=== PATIENT | male | born 1960 | race Caucasian/White ===

== ENCOUNTER 2020-01-13 17:41 | Outpatient (REF) | payer OTHER, SELFPAY | END 2020-01-13 17:42 | disposition home or self-care (01) | LOC: HO.LAB 17:41 | PROVIDERS: Visit Provider Internal Medicine | DX: Z20.828 Contact with and (suspected) exposure to other viral communicable diseases (principal) | CPT/HCPCS: U0003 ==

== ENCOUNTER 2020-04-06 12:04 | Outpatient (REF) | payer OTHER, SELFPAY | END 2020-04-06 12:05 | disposition home or self-care (01) | LOC: HO.LAB 12:04 | PROVIDERS: Visit Provider Internal Medicine | DX: Z20.822 Contact with and (suspected) exposure to COVID-19 (principal) | CPT/HCPCS: 36415; C9803; U0003 ==

== ENCOUNTER 2022-06-23 19:04 | Emergency (ER) | payer MEDICAID, SELFPAY ==
[2022-06-23 19:30] VITALS: BP 175/110; PULSE 81; RESP 20; TEMP 36.6; O2SAT 97; BMI 34.7
[2022-06-23 19:34] VITALS: BP 159/92
--- NOTE | 2022-06-23 19:36 | ECG_ITS ---
Test Reason : HYPERTENTION Blood Pressure : / mmHG Vent. Rate : 073 BPM Atrial Rate : 073 BPM P-R Int : 150 ms QRS Dur : 078 ms QT Int : 374 ms P-R-T Axes : 022 -07 023 degrees QTc Int : 412 ms Normal sinus rhythm Normal ECG No previous ECGs available Referred By: Andrei Harvey Electronically Signed By:TAMIKA CARTER MD
--- NOTE | 2022-06-23 19:36 | ED.GENADULT ---
HPI - General Adult General Chief complaint: General Medical <ALY Ruiz - Last Filed: 06/30/22 09:40> Stated complaint: elevated blood pressure <ALY Ruiz - Last Filed: 06/30/22 09:40> Time Seen by Provider: 06/23/22 20:49 <ALY Ruiz - Last Filed: 06/30/22 09:40> Source: patient and family () <Kendra Strong MD - Last Filed: 06/23/22 22:38> Mode of arrival: ambulatory <Kendra Strong MD - Last Filed: 06/23/22 22:38> History of Present Illness HPI narrative: 61-year-old male who arrives to the ED with concerns for high blood pressure, he endorses that he has underlying Parkinson's and did drink 3 beers last night. Patient states that he has had increased stressors and increased level of emotional feelings due to his tremors associated with Parkinson's around his grandkids. Patient reports headaches but denies any other symptoms such as speech/auditory/dizziness/one-sided weakness. Patient also denies any chest pain. <Kendra Strong MD - Last Filed: 06/23/22 22:38> Related Data Allergies/adverse reactions: Allergies Allergy/AdvReac Type Severity Reaction Status Date / Time shellfish derived Allergy Unknown UNKNOWN Verified 06/23/22 19:33 [SHELLFISH DERIVED] Seafood Allergy Severe VOMITS, Uncoded 12/01/19 17:45 DIFF BREATHING <ALY Ruiz - Last Filed: 06/30/22 09:40> Review of Systems Review of Systems: Pertinent positives and negatives as stated in HPI <Kendra Strong MD - Last Filed: 06/23/22 22:38> PMFSH Past Medical History Source: nursing notes reviewed <Kendra Strong MD - Last Filed: 06/23/22 22:38> Social History Social History: Social History Advance Directives: No Advance Directives Information Provided: No <ALY Ruiz - Last Filed: 06/30/22 09:40> Physical Exam ED Vital Signs: Vital Signs - 24 hr 06/23/22 19:30 06/23/22 19:34 06/23/22 21:02 Temperature 97.8 F Pulse Rate 81 77 Respiratory Rate 20 16 Blood Pressure 175/110 H 159/92 H 169/102 H Pulse Oximetry 97 97 Oxygen Delivery Method Room Air Room Air 06/23/22 22:00 Temperature 98.0 F Pulse Rate 78 Respiratory Rate 16 Blood Pressure 150/100 H Pulse Oximetry 100 Oxygen Delivery Method Room Air BMI result Body Mass Index 34.7 <ALY Ruiz - Last Filed: 06/30/22 09:40> Vital Signs - 24 hr 06/23/22 19:30 06/23/22 19:34 06/23/22 21:02 Temperature 97.8 F Pulse Rate 81 77 Respiratory Rate 20 16 Blood Pressure 175/110 H 159/92 H 169/102 H Pulse Oximetry 97 97 Oxygen Delivery Method Room Air Room Air 06/23/22 22:00 Temperature 98.0 F Pulse Rate 78 Respiratory Rate 16 Blood Pressure 150/100 H Pulse Oximetry 100 Oxygen Delivery Method Room Air BMI result Body Mass Index 34.7 VITAL SIGNS: Reviewed. GENERAL: Well developed, well nourished, in no acute distress. HEAD: Normocephalic/atraumatic EYES: PERRLA, EOMI EARS: Ext canals without abnormality NOSE: Nares patent bilateral OROPHARYNX: no oral lesions noted, posterior pharynx clear NECK: Supple, no adenopathy LUNGS: Normal breath sounds. No adventitious sounds or accessory muscle use. SpO2<97> CARDIOVASCULAR: Regular rate and rhythm without noted murmurs, no JVD or lower extremity edema. ABDOMEN: Soft, non-tender, non-distended with bowel sounds. MUSCULOSKELETAL: No tenderness, deformities, or effusions noted on gross inspection. EXTREMITIES: No cyanosis, clubbing or edema. SKIN: Inspection of the skin reveals no rashes NEUROLOGIC: Alert and oriented x 4. Strength and sensation to light touch were grossly intact x 4, tremors at baseline primarily on the right. <Kendra Strong MD - Last Filed: 06/23/22 22:38> Course Course Course Narrative: RME: 61 yold male presents to the ED for headache and HTN. blood pressure elvated at home. negative for any neuro deficits. labs/EKG ordered <ALY Ruiz - Last Filed: 06/30/22 09:40> Medical Decision Making Medical Decision Making MDM Narrative: 61-year-old male with history and clinical presentation after review of all investigations I suspect that patient's blood pressure may be mildly elevated secondary to alcohol consumption last night, he has no focal deficits, at this time he does not have any headache and he denies any chest pain. Was explained that we would not be starting blood pressure medications today, but I would be sending my note over to his primary care doctor and he should call 1st thing in the morning as well as starting a blood pressure log. He understands and is discharged home in stable condition. <Kendra Strong MD - Last Filed: 06/23/22 22:38> Differential Diagnosis Please see the discussion above <Kendra Strong MD - Last Filed: 06/23/22 22:38> Lab Data Please see the discussion above <Kendra Strong MD - Last Filed: 06/23/22 22:38> Result Diagrams: 06/23/22 20:05 06/23/22 20:05 <ALY Ruiz - Last Filed: 06/30/22 09:40> Labs: Lab Results 06/23/22 06/23/22 06/23/22 Range/Units 20:05 20:05 20:05 WBC 7.2 (4.8-10.8) X10*3/uL RBC 5.10 (4.60-5.80) X10*6/uL Hgb 14.0 (14.0-18.0) g/dl Hct 42.0 (42.0-52.0) % MCV 82.4 (80.0-98.0) fL MCH 27.5 (27.0-33.0) pg MCHC 33.3 (31.0-36.0) g/dl RDW 13.7 (11.0-16.0) % Plt Count 263 (160-400) X10*3/uL MPV 10.6 (9.4-12.4) fL Immature Gran % (Auto) 0.1 (0.0-0.4) % Neut % (Auto) 54.1 (45-73) % Lymph % (Auto) 24.8 (20-40) % Freestone % (Auto) 9.6 (2-11) % Eos % (Auto) 10.4 H (0-4) % Baso % (Auto) 1.0 (0-2) % Lymph # (Auto) 1.8 (1.2-4.9) X10*3/uL Freestone # (Auto) 0.7 (0.1-1.2) X10*3/uL Eos # (Auto) 0.8 H (0.0-0.4) X10*3/uL Baso # (Auto) 0.1 (0.0-0.2) X10*3/uL Abs Immat Gran (auto) 0.01 (0.00-0.03) X10*3/uL Absolute Neuts (auto) 3.9 (2.0-8.3) x10*3/uL Absolute Nucleated RBC 0.000 (0.0-0.012) X10*3/uL Nucleated RBC % (auto) 0.0 (0.0-0.2) /100WBC PT 10.7 (10.0-13.1) SEC INR 0.9 (0.9-1.1) APTT 28.6 (26.0-36.4) SEC Sodium 140 (135-145) mmol/L Potassium 4.1 (3.3-5.1) mmol/L Chloride 107 (96-108) mmol/L Carbon Dioxide 24 (22-29) mmol/L Anion Gap 13 (12-20) BUN 16 (9-16) mg/dL Creatinine 1.29 (0.5-1.4) mg/dL Estim Creat Clear Calc 66.5 Estimated GFR 57 Random Glucose 105 (60-115) mg/dL Calcium 8.9 (8.4-10.2) mg/dL Total Bilirubin 0.3 (0.0-1.0) mg/dL AST 22 (5-37) U/L ALT 13 (0-40) U/L Alkaline Phosphatase 60 (39-117) U/L Troponin I High Sens (<3.5-35.0) ng/L Total Protein 7.0 (6.5-8.0) g/dL Albumin 4.2 (3.5-5.0) g/dL 06/23/22 Range/Units 20:05 WBC (4.8-10.8) X10*3/uL RBC (4.60-5.80) X10*6/uL Hgb (14.0-18.0) g/dl Hct (42.0-52.0) % MCV (80.0-98.0) fL MCH (27.0-33.0) pg MCHC (31.0-36.0) g/dl RDW (11.0-16.0) % Plt Count (160-400) X10*3/uL MPV (9.4-12.4) fL Immature Gran % (Auto) (0.0-0.4) % Neut % (Auto) (45-73) % Lymph % (Auto) (20-40) % Freestone % (Auto) (2-11) % Eos % (Auto) (0-4) % Baso % (Auto) (0-2) % Lymph # (Auto) (1.2-4.9) X10*3/uL Freestone # (Auto) (0.1-1.2) X10*3/uL Eos # (Auto) (0.0-0.4) X10*3/uL Baso # (Auto) (0.0-0.2) X10*3/uL Abs Immat Gran (auto) (0.00-0.03) X10*3/uL Absolute Neuts (auto) (2.0-8.3) x10*3/uL Absolute Nucleated RBC (0.0-0.012) X10*3/uL Nucleated RBC % (auto) (0.0-0.2) /100WBC PT (10.0-13.1) SEC INR (0.9-1.1) APTT (26.0-36.4) SEC Sodium (135-145) mmol/L Potassium (3.3-5.1) mmol/L Chloride (96-108) mmol/L Carbon Dioxide (22-29) mmol/L Anion Gap (12-20) BUN (9-16) mg/dL Creatinine (0.5-1.4) mg/dL Estim Creat Clear Calc Estimated GFR Random Glucose (60-115) mg/dL Calcium (8.4-10.2) mg/dL Total Bilirubin (0.0-1.0) mg/dL AST (5-37) U/L ALT (0-40) U/L Alkaline Phosphatase (39-117) U/L Troponin I High Sens < 2.7 (<3.5-35.0) ng/L Total Protein (6.5-8.0) g/dL Albumin (3.5-5.0) g/dL <ALY Ruiz - Last Filed: 06/30/22 09:40> Lab Results 06/23/22 06/23/22 06/23/22 Range/Units 20:05 20:05 20:05 WBC 7.2 (4.8-10.8) X10*3/uL RBC 5.10 (4.60-5.80) X10*6/uL Hgb 14.0 (14.0-18.0) g/dl Hct 42.0 (42.0-52.0) % MCV 82.4 (80.0-98.0) fL MCH 27.5 (27.0-33.0) pg MCHC 33.3 (31.0-36.0) g/dl RDW 13.7 (11.0-16.0) % Plt Count 263 (160-400) X10*3/uL MPV 10.6 (9.4-12.4) fL Immature Gran % (Auto) 0.1 (0.0-0.4) % Neut % (Auto) 54.1 (45-73) % Lymph % (Auto) 24.8 (20-40) % Freestone % (Auto) 9.6 (2-11) % Eos % (Auto) 10.4 H (0-4) % Baso % (Auto) 1.0 (0-2) % Lymph # (Auto) 1.8 (1.2-4.9) X10*3/uL Freestone # (Auto) 0.7 (0.1-1.2) X10*3/uL Eos # (Auto) 0.8 H (0.0-0.4) X10*3/uL Baso # (Auto) 0.1 (0.0-0.2) X10*3/uL Abs Immat Gran (auto) 0.01 (0.00-0.03) X10*3/uL Absolute Neuts (auto) 3.9 (2.0-8.3) x10*3/uL Absolute Nucleated RBC 0.000 (0.0-0.012) X10*3/uL Nucleated RBC % (auto) 0.0 (0.0-0.2) /100WBC PT 10.7 (10.0-13.1) SEC INR 0.9 (0.9-1.1) APTT 28.6 (26.0-36.4) SEC Sodium 140 (135-145) mmol/L Potassium 4.1 (3.3-5.1) mmol/L Chloride 107 (96-108) mmol/L Carbon Dioxide 24 (22-29) mmol/L Anion Gap 13 (12-20) BUN 16 (9-16) mg/dL Creatinine 1.29 (0.5-1.4) mg/dL Estim Creat Clear Calc 66.5 Estimated GFR 57 Random Glucose 105 (60-115) mg/dL Calcium 8.9 (8.4-10.2) mg/dL Total Bilirubin 0.3 (0.0-1.0) mg/dL AST 22 (5-37) U/L ALT 13 (0-40) U/L Alkaline Phosphatase 60 (39-117) U/L Troponin I High Sens (<3.5-35.0) ng/L Total Protein 7.0 (6.5-8.0) g/dL Albumin 4.2 (3.5-5.0) g/dL 06/23/22 Range/Units 20:05 WBC (4.8-10.8) X10*3/uL RBC (4.60-5.80) X10*6/uL Hgb (14.0-18.0) g/dl Hct (42.0-52.0) % MCV (80.0-98.0) fL MCH (27.0-33.0) pg MCHC (31.0-36.0) g/dl RDW (11.0-16.0) % Plt Count (160-400) X10*3/uL MPV (9.4-12.4) fL Immature Gran % (Auto) (0.0-0.4) % Neut % (Auto) (45-73) % Lymph % (Auto) (20-40) % Freestone % (Auto) (2-11) % Eos % (Auto) (0-4) % Baso % (Auto) (0-2) % Lymph # (Auto) (1.2-4.9) X10*3/uL Freestone # (Auto) (0.1-1.2) X10*3/uL Eos # (Auto) (0.0-0.4) X10*3/uL Baso # (Auto) (0.0-0.2) X10*3/uL Abs Immat Gran (auto) (0.00-0.03) X10*3/uL Absolute Neuts (auto) (2.0-8.3) x10*3/uL Absolute Nucleated RBC (0.0-0.012) X10*3/uL Nucleated RBC % (auto) (0.0-0.2) /100WBC PT (10.0-13.1) SEC INR (0.9-1.1) APTT (26.0-36.4) SEC Sodium (135-145) mmol/L Potassium (3.3-5.1) mmol/L Chloride (96-108) mmol/L Carbon Dioxide (22-29) mmol/L Anion Gap (12-20) BUN (9-16) mg/dL Creatinine (0.5-1.4) mg/dL Estim Creat Clear Calc Estimated GFR Random Glucose (60-115) mg/dL Calcium (8.4-10.2) mg/dL Total Bilirubin (0.0-1.0) mg/dL AST (5-37) U/L ALT (0-40) U/L Alkaline Phosphatase (39-117) U/L Troponin I High Sens < 2.7 (<3.5-35.0) ng/L Total Protein (6.5-8.0) g/dL Albumin (3.5-5.0) g/dL <Kendra Strong MD - Last Filed: 06/23/22 22:38> Independent Interpretation I performed an independent interpretation of an: EKG <Kendra Strong MD - Last Filed: 06/23/22 22:38> Interpretation: Normal sinus rhythm, HR-73, no STEMI, CA/QRS/QTC is within normal limits. <Kendra Strong MD - Last Filed: 06/23/22 22:38> Chronic Conditions Parkinson's <Kendra Strong MD - Last Filed: 06/23/22 22:38> Discharge Plan Discharge Clinical Impression: Elevated blood pressure reading, Parkinson's disease <ALY Ruiz - Last Filed: 06/30/22 09:40> Patient Disposition: Home, Self-Care <ALY Ruiz - Last Filed: 06/30/22 09:40> Instructions: Parkinson Disease (ED), DASH Eating Plan (ED) <ALY Ruiz - Last Filed: 06/30/22 09:40> Additional Instructions: 1. Reanudar todos los medicamentos caseros seg?n lo prescrito. 2. Siga las recomendaciones anteriores para cambios en la dieta para ayudar a mejorar shrestha presi?n arterial y evitar las bebidas alcoh?licas. 3. Comun?quese con shrestha proveedor de atenci?n primaria llamando a la oficina por la ma?nikki y programando sam cade para sam reevaluaci?n. 4. Le recomiendo que lleve un registro de shrestha presi?n arterial. Compru?belo sam vez por la ma?nikki y luego otra vez por la noche antes de acostarse. Regrese a la christy de emergencias si los s?ntomas empeoran. 1. Resume all home medications as prescribed. 2. Please follow the above recommendations for dietary changes to help improve your blood pressure as well as avoiding alcoholic beverages. 3. Please reach out to your primary care provider by calling the office in the morning and setting up an appointment for re-evaluation. 4. I recommend that you keep a log of your blood pressure is. Check once in the morning and then again in the evening before bed. Return to the ER for any worsening symptoms. <ALY Ruiz - Last Filed: 06/30/22 09:40> Referrals: Avni Elias MD [Primary Care Provider] - (Patient presented with several elevated blood pressure readings, did not start him on blood pressure medication, no focal deficits, no chest pain. Workup was otherwise negative.) <ALY Ruiz - Last Filed: 06/30/22 09:40> Interventions: ED Discharge Assessment Last Done: 06/23/22 23:06 <ALY Ruiz - Last Filed: 06/30/22 09:40> Discharge Date/Time: 06/23/22 23:07 <ALY Ruiz - Last Filed: 06/30/22 09:40> Print Language: Icelandic <ALY Ruiz - Last Filed: 06/30/22 09:40>
[2022-06-23 20:10] LABS: MANUAL DIFF FLAG NO
[2022-06-23 20:11] LABS: Basophils Absolute Auto 0.1 X10*3/uL (0.0-0.2); Eosinophils Absolute Auto 0.8 X10*3/uL (0.0-0.4); Eosinophils Percent Auto 10.4 % (0-4); Imm Gran Abs Auto 0.01 X10*3/uL (0.00-0.03); Imm Gran Pct Auto 0.1 % (0.0-0.4); Lymphocytes Absolute Auto 1.8 X10*3/uL (1.2-4.9); Lymphocytes Percent Auto 24.8 % (20-40); Mean Corpuscular HGB Conc 33.3 g/dl (31.0-36.0); Mean Corpuscular Hemoglobin 27.5 pg (27.0-33.0); Mean Corpuscular Volume 82.4 fL (80.0-98.0); Mean Platelet Volume 10.6 fL (9.4-12.4); Monocytes Absolute Auto 0.7 X10*3/uL (0.1-1.2); Monocytes Percent Auto 9.6 % (2-11); Neutrophils Absolute Auto 3.9 x10*3/uL (2.0-8.3); Neutrophils Percent Auto 54.1 % (45-73); Platelet Count 263 X10*3/uL (160-400); Red Cell Distribution Width 13.7 % (11.0-16.0); White Blood Count 7.2 X10*3/uL (4.8-10.8)
[2022-06-23 20:15] LABS: INTERNATIONAL NORM RATIO 0.9 (0.9-1.1); Prothrombin Time 10.7 SEC (10.0-13.1)
[2022-06-23 20:18] LABS: Partial Thromboplastin Time 28.6 SEC (26.0-36.4)
[2022-06-23 20:25] LABS: Alanine Aminotransferase 13 U/L (0-40); Albumin Level 4.2 g/dL (3.5-5.0); Alkaline Phosphatase 60 U/L (39-117); Anion Gap 13 (12-20); Aspartate Amino Transferase 22 U/L (5-37); Bilirubin Total 0.3 mg/dL (0.0-1.0); Blood Urea Nitrogen 16 mg/dL (9-16); Calcium 8.9 mg/dL (8.4-10.2); Carbon Dioxide 24 mmol/L (22-29); Chloride 107 mmol/L (96-108); Creatinine Clr Calc Pharmacy 66.5; Estimated Glomerular Filt Rate 57; Glucose Random 105 mg/dL (60-115); Potassium 4.1 mmol/L (3.3-5.1); Sodium 140 mmol/L (135-145)
[2022-06-23 20:35] LABS: Troponin-I High Sensitivity < 2.7 ng/L (<3.5-35.0)
[2022-06-23 21:02] VITALS: BP 169/102; PULSE 77; RESP 16; O2SAT 97
[2022-06-23 22:00] VITALS: BP 150/100; PULSE 78; RESP 16; TEMP 36.7; O2SAT 100
== END 2022-06-23 23:07 | disposition home or self-care (01) ==
PROVIDERS: Physician Assistant; Emergency Provider Student in an Organized Health Care Education/Training Program; PCP Internal Medicine
DX: F43.9 Reaction to severe stress, unspecified (principal); R51.9 Headache, unspecified; G20 Parkinson's disease; F06.71 Mild neurocognitive disorder due to known physiological condition with behavioral disturbance; R03.0 Elevated blood-pressure reading, without diagnosis of hypertension; R94.31 Abnormal electrocardiogram [ECG] [EKG]; Z79.899 Other long term (current) drug therapy
CPT/HCPCS: 36415; 80053; 84484; 85025; 85610; 85730; 93005; 99283; 99284

== ENCOUNTER 2022-07-02 11:26 | Outpatient (REF) | payer MEDICAID, SELFPAY ==
--- NOTE | ~2022-07-02 | XR_ITS ---
EXAMINATION: XR FOOT, RIGHT CLINICAL INFORMATION: Pain COMPARISON: None available. TECHNIQUE: AP, lateral, and oblique views of the right foot. FINDINGS: Lucency noted throughout the medial hallux sesamoid bone for which differential considerations would include a mildly displaced fracture versus anatomic variant bipartite sesamoid bone, recommend correlation with point tenderness. Mild degenerative changes of the foot with Achilles tendon enthesopathy and degenerative spurring of the dorsal midfoot. Atherosclerotic vascular calcification. XR/XR foot RT 2V IMPRESSION: 1. Lucency noted throughout the medial hallux sesamoid bone for which differential considerations would include a mildly displaced fracture versus anatomic variant bipartite sesamoid bone, recommend correlation with point tenderness. Follow-up radiographs could be considered to assess for any interval healing of warranted. 2. Mild degenerative changes of the foot.
== END 2022-07-02 11:27 | disposition home or self-care (01) ==
LOC: HO.XRAY 11:26
PROVIDERS: PCP Internal Medicine; Visit Provider Family Medicine
DX: M79.671 Pain in right foot (principal)
CPT/HCPCS: 73620

== ENCOUNTER 2022-08-03 10:56 | Emergency (ER) | payer MEDICAID, SELFPAY ==
--- NOTE | ~2022-08-03 | XR_ITS ---
EXAMINATION: XR CHEST CLINICAL INFORMATION: Cough. COMPARISON: Chest radiographs dated 05/16/2008. TECHNIQUE: 2 views of the chest were obtained. FINDINGS: The lungs are clear. The cardiomediastinal silhouette is normal in size. There is no pleural effusion or pneumothorax. No acute osseous abnormality. XR/XR chest 2V IMPRESSION: No acute cardiopulmonary findings.
[2022-08-03 10:59] VITALS: BP 142/90; PULSE 89; RESP 18; TEMP 36.7; O2SAT 95; BMI 36.9
[2022-08-03 11:49] LABS: Influenza A PCR NEGATIVE (Negative); Influenza B PCR NEGATIVE (Negative); Resp Syncy Virus RNA Qual PCR NEGATIVE (Negative); SARS COV2 PCR INHOUSE NEGATIVE (Negative)
--- NOTE | 2022-08-03 11:58 | ED_ITS ---
HPI - General Adult General Chief complaint: Upper Respiratory Symptoms Stated complaint: Asthma Time Seen by Provider: 08/03/22 11:57 Source: patient Limitations: no limitations History of Present Illness HPI narrative: 61-year-old male presents ER complaining of congestion sore throat and cough. Patient has longstanding history of asthma. Minimal relief with his inhalers at this time. Patient had some chills yesterday. Patient states cough is mostly nonproductive. Positive sick contacts with the child at home. Patient is without nausea vomiting chest pain. Symptoms are [id number]. No other complaints at this time no recent travel history. Related Data Previous Rx's Medication Instructions Recorded azithromycin 250 mg tablet 250 mg PO DAILY #6 tabs 08/03/22 (Zithromax) benzonatate 100 mg capsule 100 mg PO BID PRN cough #10 caps 08/03/22 Allergies Allergy/AdvReac Type Severity Reaction Status Date / Time shellfish derived Allergy Unknown UNKNOWN Verified 08/03/22 10:58 [SHELLFISH DERIVED] Seafood Allergy Severe VOMITS, Uncoded 12/01/19 17:45 DIFF BREATHING Review of Systems Review of Systems: General: No fever, positive chills Ophthalmology: No vision changes, no discharge ENT: Positive sore throat which is mostly resolved positive congestion Cardiovascular: No chest pain, no peripheral edema, no shortness of breath Respiratory: Positive wheezes, positive cough Muscle skeletal: No malaise, no back pain, no neck pain, no extremity pain GI: no nausea vomiting, no diarrhea Skin: No rash PMFSH Past Medical History Attestation statement: The following information was validated with the patient. Social History Social History Advance Directives: No Advance Directives Information Provided: Yes Physical Exam ED Vital Signs: Vital Signs - 24 hr 08/03/22 10:59 Temperature 98.1 F Pulse Rate 89 Respiratory Rate 18 Blood Pressure 142/90 H Pulse Oximetry 95 Oxygen Delivery Method Room Air BMI result Body Mass Index 36.9 General appearance: Awake, alert, cooperative, in no acute distress Skin: Warm, dry, no rash Eyes: PERRL, EOMI, no icterus ENT: Slight erythema, uvula midline, no peritonsillar abscess Neck: Soft supple full range of motion Pulmonary: Breath sounds few faint wheezes no sensory muscle use, no retraction Cardiovascular: Regular rate and rhythm, no murmurs and rubs Extremities: Patient moving all extremities purposely patient is ambulatory. Neuro: Alert oriented x3, no focal deficit Psych: Normal affect Course Course Course Narrative: Acute bronchitis Pneumonia Asthma exacerbation Viral URI Sinusitis Pharyngitis 61-year-old male presents with cough congestion sore throat over the past few days positive sick contact from a child at home. Patient does have a history of asthma. Clinical exam is consistent with sinus pressure discharge and some slight wheezes. Chest x-rays pending vital signs are stable. 12:42 Chest x-ray is negative Respiratory swab is negative for COVID-19 influenza and RSV Patient has clinical signs and symptoms concerning for sinusitis will treat at this time. And/or other viral URI Medical Decision Making Lab Data Labs: Lab Results 08/03/22 Range/Units 11:05 Influenza Type A (PCR) NEGATIVE (Negative) Influenza Type B (PCR) NEGATIVE (Negative) RSV RNA Qual (PCR) NEGATIVE (Negative) SARS-CoV-2 RNA (RT-PCR) NEGATIVE (Negative) Radiology Impression Discussion of test interpretation with radiology: I have reviewed the radiologist's reading. Radiologist Impression: [address] [id number] ReportSigned Patient: Kaleb Castañeda#: [id number]: 1960cct:[id number]/Sex: 61 / MADM Date: 08/03/22Loc: EDAttending Dr: Ordering Physician: Marin Gaona Date of Service: 08/03/22 Procedure(s): XR chest 2V Accession Number(s): [id number] cc: Marin Gaona ~ EXAMINATION: XR CHEST CLINICAL INFORMATION: Cough. COMPARISON: Chest radiographs dated 05/16/2008. TECHNIQUE: 2 views of the chest were obtained. FINDINGS: The lungs are clear. The cardiomediastinal silhouette is normal in size. There is no pleural effusion or pneumothorax. No acute osseous abnormality. XR/XR chest 2V IMPRESSION: No acute cardiopulmonary findings. Dictated By:Billy Antoine MDSigned By:<Electronically signed by Billy Antoine MD in [place]>08/03/22 1220 DD/ 1210TD/TT: Talent Acquisition Coordinator: Discharge Plan Discharge Clinical Impression: Sinusitis, Upper respiratory infection Patient Disposition: Home, Self-Care Instructions: Sinusitis (ED), Upper Respiratory Infection (DC) Additional Instructions: Increase fluids rest medication as directed Call PCP for follow-up Return if symptoms worsen Prescriptions: New azithromycin [Zithromax] 250 mg tablet 250 mg PO DAILY Qty: 6 0RF Rx Instructions: 500 mg day 1 250 mg day 2 through 5 benzonatate 100 mg capsule 100 mg PO BID PRN (Reason: cough) Qty: 10 0RF
== END 2022-08-03 12:58 | disposition home or self-care (01) ==
PROVIDERS: Emergency Provider Emergency Medicine Emergency Medical Services; PCP Internal Medicine
DX: J06.9 Acute upper respiratory infection, unspecified (principal); J32.9 Chronic sinusitis, unspecified; R05.9 Cough, unspecified; Z20.822 Contact with and (suspected) exposure to COVID-19; Z20.828 Contact with and (suspected) exposure to other viral communicable diseases; Z79.899 Other long term (current) drug therapy
CPT/HCPCS: 0241U; 71046; 99282; 99283

== ENCOUNTER 2022-11-28 09:22 | Outpatient (REF) | payer MEDICAID, SELFPAY ==
[2022-11-28 15:02] LABS: MANUAL DIFF FLAG NO
[2022-11-28 15:12] LABS: Basophils Absolute Auto 0.1 X10*3/uL (0.0-0.2); Basophils Percent Auto 0.9 % (0-2); Eosinophils Absolute Auto 0.7 X10*3/uL (0.0-0.4); Eosinophils Percent Auto 10.7 % (0-4); Hematocrit 46.2 % (42.0-52.0); Hemoglobin 15.1 g/dl (14.0-18.0); Imm Gran Abs Auto 0.03 X10*3/uL (0.00-0.03); Imm Gran Pct Auto 0.5 % (0.0-0.4); Lymphocytes Absolute Auto 1.6 X10*3/uL (1.2-4.9); Lymphocytes Percent Auto 23.3 % (20-40); Mean Corpuscular HGB Conc 32.7 g/dl (31.0-36.0); Mean Corpuscular Volume 85.7 fL (80.0-98.0); Mean Platelet Volume 12.4 fL (9.4-12.4); Monocytes Absolute Auto 0.6 X10*3/uL (0.1-1.2); Monocytes Percent Auto 9.2 % (2-11); Neutrophils Absolute Auto 3.7 x10*3/uL (2.0-8.3); Neutrophils Percent Auto 55.4 % (45-73); Red Blood Count 5.39 X10*6/uL (4.60-5.80); Red Cell Distribution Width 13.7 % (11.0-16.0); White Blood Count 6.7 X10*3/uL (4.8-10.8)
[2022-11-28 15:22] LABS: Platelet Count 109 X10*3/uL (160-400)
[2022-11-28 15:56] LABS: Alanine Aminotransferase 53 U/L (0-40); Albumin Level 4.4 g/dL (3.5-5.0); Alkaline Phosphatase 65 U/L (39-117); Anion Gap 14 (12-20); Aspartate Amino Transferase 56 U/L (5-37); Bilirubin Total 0.4 mg/dL (0.0-1.0); Blood Urea Nitrogen 16 mg/dL (9-16); Calcium 9.5 mg/dL (8.4-10.2); Carbon Dioxide 24 mmol/L (22-29); Chloride 107 mmol/L (96-108); Cholesterol 206 mg/dL (<200); Estimated Glomerular Filt Rate > 60; Glucose Fasting 97 mg/dL (60-99); HDL Cholesterol 69 mg/dL (>40); LDL Cholesterol Calculated 121 mg/dL (<100); Potassium 3.8 mmol/L (3.3-5.1); Sodium 141 mmol/L (135-145); Total Protein 7.8 g/dL (6.5-8.0); Triglycerides 80 mg/dL (<150)
[2022-11-29 04:12] LABS: HBS Num1 12.21 mIU/mL (0-7.99); HBc Num1 0.09 S/CO (0.00-0.79); HBsAGNum1 0.39 S/CO (0.00-0.99); Hepatitis A Antibody IgM 0.21 Index (0-0.79); Hepatitis B Core Antibody Nonreactive (Nonreactive); Hepatitis B Surface Antigen Negative (Negative); ~HepC Num1 0.07 S/CO (0.00-0.79); ~Hepatitis A Antibody IgM Nonreactive (Nonreactive); ~Hepatitis B Surface Antibody REACTIVE (Nonreactive); ~Hepatitis C Antibody Nonreactive (Nonreactive)
== END 2022-11-28 09:23 | disposition home or self-care (01) ==
LOC: HO.CHCLDS 09:22
PROVIDERS: Visit Provider Internal Medicine
DX: I10 Essential (primary) hypertension (principal)
CPT/HCPCS: 36415; 80053; 80061; 84443; 85025; 86704; 86706; 86709; 86803; 87340

== ENCOUNTER 2022-12-23 14:15 | Outpatient (REF) | payer MEDICARE, MEDICAID, SELFPAY | END 2022-12-23 14:16 | disposition home or self-care (01) | LOC: HO.CHCLDS 14:15 | PROVIDERS: Visit Provider Internal Medicine | DX: D69.6 Thrombocytopenia, unspecified (principal) | CPT/HCPCS: 36415; 85049 ==

== ENCOUNTER 2023-03-23 10:11 | Outpatient (REF) | payer OTHER, MEDICAID, SELFPAY | END 2023-03-23 10:12 | disposition home or self-care (01) | LOC: HO.HHCL 10:11 | PROVIDERS: Visit Provider Internal Medicine | DX: D69.6 Thrombocytopenia, unspecified (principal) | CPT/HCPCS: 36415; 80053; 85049 ==

== ENCOUNTER 2023-08-26 09:51 | Outpatient (REF) | payer OTHER, MEDICAID, SELFPAY ==
[2023-08-26 11:51] LABS: Alanine Aminotransferase 67 U/L (0-40); Albumin Level 4.3 g/dL (3.5-5.0); Alkaline Phosphatase 67 U/L (39-117); Anion Gap 13 (12-20); Aspartate Amino Transferase 35 U/L (5-37); Bilirubin Total 0.5 mg/dL (0.0-1.0); Blood Urea Nitrogen 18 mg/dL (9-16); Calcium 9.4 mg/dL (8.4-10.2); Carbon Dioxide 22 mmol/L (22-29); Chloride 109 mmol/L (96-108); Cholesterol 205 mg/dL (<200); Estimated Glomerular Filt Rate > 60; Glucose Random 113 mg/dL (60-115); HDL Cholesterol 66 mg/dL (>40); LDL Cholesterol Calculated 126 mg/dL (<100); Potassium 3.9 mmol/L (3.3-5.1); Sodium 140 mmol/L (135-145); Total Protein 7.6 g/dL (6.5-8.0); Triglycerides 68 mg/dL (<150)
== END 2023-08-26 09:52 | disposition home or self-care (01) ==
LOC: HO.HHCL 09:51
PROVIDERS: Visit Provider Internal Medicine
DX: I10 Essential (primary) hypertension (principal)
CPT/HCPCS: 36415; 80053; 80061

== ENCOUNTER 2024-09-28 08:34 | Outpatient (REF) | payer OTHER, MEDICAID, SELFPAY ==
--- OUTSIDE RECORDS SUMMARY | 2024-09-28 08:40 | XMS_ITS | Encounter Summary ---
Author Organization [employer] [facility] Address [address] [place] [address] [address] [place] [address] Care Team Providers Care Commercial Finance Analyst Name Role Phone Avni Elias MD Primary Care Prov ider Reason for Visit * Reason Comments Med Refill Encounter Details Date Type Department Care Team (Late Contact Info) Description 05/07/2022 Refill [facility] [address] [place] [address] Avni Elias MD [address] [place] [address] Primary insomnia Social History Tobacco Use Types Packs/Day Years Used Date Smoking Tobacco: Never Smokeless Tobacco: Never Alcohol Use Standard Drinks/Week Comments Not Currently 0 (1 standard drink = 0.6 oz pur e alcohol) Sex and Gender Information Value Date Recorded Sex Assigned at Male 01/13/2022 10:37 AM EDT Legal Sex Male 10:37 AM EDT Gender Identity Male 01/13/2022 10:37 AM EDT Sexual Orientation Straight 12/25/2022 3: 40 PM EDT documented as of this encounter Plan of Treatment Upcoming Encounters Date Type Department Care Team (Late Contact Info) Description 12/12/2024 10:30 AM EDT Telemedicine [facility] [address] [place], [place] [phone] Avni Elias MD [address] [place], [place] [phone] documented as of this encounter Visit Diagnoses Diagnosis Primary insomnia Persistent disorder of initiating or maintaining sleep documented in this encounter Care Teams Commercial Finance Analyst Relationship Specialty Start Date End Date Avni Elias MD [address] [place] [id number] PCP - General Internal Medicine 08/11/19 documented as of this encounter
[2024-09-28 11:15] LABS: Hematocrit 42.0 % (42.0-52.0); Hemoglobin 13.9 g/dl (14.0-18.0); Imm Gran Abs Auto 0.02 X10*3/uL (0.00-0.03); Imm Gran Pct Auto 0.3 % (0.0-0.4); Lymphocytes Absolute Auto 1.5 X10*3/uL (1.2-4.9); MANUAL DIFF FLAG NO; Mean Corpuscular HGB Conc 33.1 g/dl (31.0-36.0); Mean Corpuscular Hemoglobin 27.0 pg (27.0-33.0); Mean Corpuscular Volume 81.6 fL (80.0-98.0); NRBC Abs Auto 0.000 X10*3/uL (0.0-0.012); NRBC Pct Auto 0.0 /100WBC (0.0-0.2); Platelet Count 198 X10*3/uL (160-400); Red Blood Count 5.15 X10*6/uL (4.60-5.80); White Blood Count 6.3 X10*3/uL (4.8-10.8)
[2024-09-28 11:23] LABS: Hemoglobin A1C 159.1896 umol/L; Total Hemoglobin (HGBA1C) 3667.2570 umol/L
[2024-09-28 11:51] LABS: Alanine Aminotransferase 12 U/L (0-40); Albumin Level 4.2 g/dL (3.5-5.0); Alkaline Phosphatase 78 U/L (39-117); Anion Gap 11 (12-20); Aspartate Amino Transferase 20 U/L (5-37); Blood Urea Nitrogen 17 mg/dL (9-16); Calcium 9.0 mg/dL (8.4-10.2); Carbon Dioxide 26 mmol/L (22-29); Chloride 108 mmol/L (96-108); Cholesterol 116 mg/dL (<200); Estimated Glomerular Filt Rate > 60; HDL Cholesterol 46 mg/dL (>40); Potassium 3.9 mmol/L (3.3-5.1); Sodium 141 mmol/L (135-145); Total Protein 7.6 g/dL (6.5-8.0); Triglycerides 62 mg/dL (<150)
== END 2024-09-28 08:35 | disposition home or self-care (01) ==
LOC: HO.HHCL 08:34
PROVIDERS: Visit Provider Internal Medicine
DX: E66.01 Morbid (severe) obesity due to excess calories (principal)
CPT/HCPCS: 36415; 80053; 80061; 83036; 84443; 85025

== ENCOUNTER 2024-11-24 10:59 | Outpatient (AMB) | payer OTHER, MEDICAID, SELFPAY ==
--- NOTE | 2024-11-24 11:02 | MHC.OFFVIS ---
Intake Visit Reasons: 6m PD Accompanied by: Family/Other Allergies shellfish derived (SHELLFISH DERIVED) Allergy (Unknown, Verified 11/24/24 11:07) UNKNOWN Seafood Allergy (Severe, Uncoded 11/24/24 11:07) VOMITS, DIFF BREATHING Medication List - Last Reconciled 11/24/24 by Shellie Feng CNP albuterol sulfate 90 mcg/actuation (Ventolin HFA) inhalation amlodipine 5 mg PO QAM atorvastatin 20 mg PO DAILY azithromycin (Zithromax) 250 mg PO DAILY benzonatate 100 mg PO BID PRN carbidopa-levodopa 25-100 mg 1 tab PO QID carbidopa-levodopa 50-200 mg ER 1 tab PO BID 90 days diclofenac potassium 50 mg PO TID PRN diclofenac sodium 1% 2 grams topical TID pramipexole 0.125 mg PO TID 90 days sertraline 25 mg PO DAILY zolpidem 10 mg PO BEDTIME HPI Comments Details: 63-year-old man with Parkinson disease. He was initially seen in 2020 when he reported that he was having problem with his right side for years. He was having more tremor in right arm and leg. He was having some tremors to left side, but not as much. He had trouble holding food or cup steady. No difficulty swallowing. Balance was not so good, but no falls. He was walking with cane or walker at home. He had some trouble getting up from chair and turning in bed. He had pain all over, in shoulders, back, legs, and ankles and some numbness to right arm that comes and goes. Sleep was not so good and he was napping during the day. COUNT INCLUDES [facility] Medical History (Updated 11/24/24 @ 11:05 by Shellie Feng CNP) Parkinson's disease REM sleep behavior disorder RLS (restless legs syndrome) Dementia Anxiety disorder Review of Systems Const Denies chills, Denies daytime sleepiness, Denies difficulty sleeping, Denies fatigue, Denies fever(s), Denies frequent falls, Denies headache(s), Denies increased appetite, Denies poor appetite, Denies snoring, Denies weakness, Denies weight gain and Denies weight loss Eyes Denies loss of vision ENT Denies vertigo, Denies dizziness and Denies headache(s) Card Denies chest pain at rest, Denies chest pain with activity, Denies syncope, Denies leg edema and Denies palpitations Resp Denies snoring GI Denies constipation, Denies heartburn, Denies diarrhea and Denies nausea Denies urinary frequency, Denies urinary incontinence and Denies urinary urgency Musc Reports abnormal gait (balance difficulty), Denies numbness and Denies tingling Skin/Breast Denies dry skin and Denies rash Neuro Reports abnormal gait (balance difficulty), Denies vertigo, Denies dizziness, Denies syncope, Denies frequent falls, Denies headache(s), Denies lack of coordination, Denies loss of vision, Denies memory loss, Denies numbness, Denies restless legs, Denies seizure-like activity, Denies tingling, Denies paresthesias, Reports tremor(s) and Denies weakness Psych Denies anxiety, Denies depression, Denies auditory hallucinations, Denies memory loss, Denies visual hallucinations and Denies suicidal ideation Endo Denies fatigue and Denies palpitations Physical Exam Const Other: General Appearance:? normal, in no acute distress. Skin:? no rashes, no significant birthmarks. Heart:? S1, S2 normal, no murmurs. Lungs:? clear anteriorly and posteriorly. Extremities:? no edema. Psych:? alert, oriented, cognitive function intact, cooperative with exam. Neuro Other: Mental Status:?Normal attention, orientation, memory and affect.? Cranial Nerves:?Pupils are equal, round and reactive to light. External occular muscles are intact. Visual marcus are full. Face is symmetrical. Facial sensations are normal. Tongue is midline. Palate elevates symmetrically. Shoulder shrugging is normal. Hearing to bedside conversation is normal. Sensory Exam:?....? Coordination:?No ataxia,?no titubation.? Gait Exam: Slow and cautious with bradykinesia, especially on the R side and mild R hand tremor. Extrapyramidal System:?Decreased facial expression and blinking, moderate cogwheeling in RUE, fine finger movements slow on R side. Pronator Drift:?Not present.? Involuntary Movements:?Mild R hand mixed tremor. Speech:?Normal.? Assessment & Plan Assessment & Plan (1) Parkinson's disease: Code(s): G20 - Parkinson's disease Category: Medical Qualifiers: Dyskinesia presence: unspecified whether dyskinesia Fluctuating manifestations: unspecified whether manifestations fluctuate Qualified Code(s): G20.A1 - Parkinson's disease without dyskinesia, without mention of fluctuations Plan: Increase carbidopa-levodopa ER 50-200mg 1 tablet twice a day. Continue carbidopa-levodopa 25-100mg 1 tablet four times a day (at 7am, 11am, 3pm, and 7pm). Continue pramipexole 0.125mg 1 tablet three times a day. (2) REM sleep behavior disorder: Code(s): G47.52 - REM sleep behavior disorder Category: Medical Plan Meds tried: Carbidopa/levodopa, pramipaxole, amantadine, sertraline, benztropine Medications: New carbidopa-levodopa 50-200 mg ER 1 tab PO BID 180 tabs 0RF 90 days Coding Level of Care Code Est Pt Level 4 (88052) Diagnoses Parkinson's disease, unspecified whether dyskinesia present, unspecified whether manifestations fluctuate G20.A1 Dyskinesia presence: unspecified whether dyskinesia Fluctuating manifestations: unspecified whether manifestations fluctuate REM sleep behavior disorder G47.52
== END 2024-11-24 11:36 | disposition home or self-care (01) ==
LOC: HO.HSM 11:00
PROVIDERS: PCP Internal Medicine; Referring Provider Internal Medicine; Visit Provider Registered Nurse
DX: G20.A1 Parkinson's disease without dyskinesia, without mention of fluctuations (principal); G47.52 REM sleep behavior disorder
CPT/HCPCS: 99214

== ENCOUNTER → 2024-11-24 10:59 | Outpatient (BNVA) | payer OTHER, MEDICAID, SELFPAY | PROVIDERS: PCP Internal Medicine; Referring Provider Internal Medicine; Visit Provider Registered Nurse | DX: G20.A1 Parkinson's disease without dyskinesia, without mention of fluctuations (principal); G47.52 REM sleep behavior disorder; G25.81 Restless legs syndrome | CPT/HCPCS: 99212 ==

== ENCOUNTER 2024-12-12 14:30 | Emergency (ER) | payer OTHER, SELFPAY ==
--- NOTE | ~2024-12-12 | XR_ITS ---
EXAMINATION: XR CHEST CLINICAL INFORMATION: weakness COMPARISON: August 03, 2022 TECHNIQUE: 2 views of the chest were obtained. FINDINGS: No significant abnormality is noted involving the heart, lungs, mediastinum, bony thorax or soft tissues. XR/XR chest 2V IMPRESSION: No acute disease Electronically signed by: Dwight Galvan MD 12/12/2024 02:56 PM EDT RP
--- OUTSIDE RECORDS SUMMARY | 2024-12-12 10:30 | XMS_ITS | Encounter Summary ---
Author Organization [employer] Address [address] [place] [address] [address] [place] [address] Care Team Providers Care Rotary Pump Operator Name Role Phone Avni Elias MD Primary Care Prov ider Encounter Details Date Type Department Care Team (Latest Contact Info) Description 12/12/2024 10:30 AM EDT Telemedicine [facility] [address], [place] [id number] Avni Elias MD [address] [place] [address] Screening for colon cancer (Primary Dx); Primary hypertension; Mixed hyperlipidemia Social History Tobacco Use Types Packs/Day Years Used Date Smoking Tobacco: Never Smokeless Tobacco: Never Alcohol Use Standard Drinks/Week Comments Not Currently 0 (1 standard drink = 0.6 oz pur e alcohol) Depression Answer Date Recorded Patient Health Questionnaire-9 Score 2 09/07/2024 Patient Health Questionnaire-9 Score 2 09/07/2024 Last PHQ-9: Questionnaire Data Not on file 0 09/07/2024 Housing Stability Answer Date Recorded What is your housing situation today? I have jose magallanes 12/29/[address] you li ve. Do you have problems with any of the following? None of the above 12/29/2022 Food Insecurity Answer Date Recorded Within the past 12 months, y ou worried that your food would run out before you got money to buy more: Never True 12/29/2022 Within the past 12 months,th e food you bought just didn't last and you didn't have enough money to get more: Never True Transportation Answer Date Recorded In the past 12 months, has l ack of transportation kept you from medical appts, meetings, work or from getting things needed for daily living? No 12/29/2022 Utilities Answer Date Recorded In the past 12 months, has t he electric, gas, oil or water company threatened to shut off services in your home? No 12/29/2022 Depression Answer Date Recorded Patient Health Questionnaire-2 Score 2 09/07/2024 Sex and Gender Information Value Date Recorded Sex Assigned at Male 01/13/2022 10:37 AM EDT Legal Sex Male 10:37 AM EDT Gender Identity Male 01/13/2022 10:37 AM EDT Sexual Orientation Straight 12/25/2022 3: 40 PM EDT documented as of this encounter Last Filed Vital Signs Vital Sign Reading Time Taken Comments Blood Pressure 115/81 12/12/2024 10:24 AM EDT Pulse 92 12/12/2024 10:24 AM EDT Temperature - - Respiratory Rate - - Oxygen Saturation - - Inhaled Oxygen Concentration - - Weight - - Height - - Body Mass Index - - documented in this encounter Progress Notes * Avni Díaz MD - 12/12/2024 10:30 AM EDT Subjective Patient ID: Jeffry Castañeda is a 63 y.o. male who presents for No chief complaint on file.. Hypertension This is a chronic problem. The problem is controlled. Pertinent negatives include no headaches, palpitations or shortness of breath. Review of Systems Respiratory: Negative for shortness of breath. Cardiovascular: Negative for palpitations. Neurological: Negative for headaches. Objective Physical Exam Neurological: General: No focal deficit present. Mental Status: He is oriented to person, place, and time. Psychiatric: Mood and Affect: Mood normal. Behavior: Behavior normal. Assessment/Plan Problem List Items Addressed This Visit Screening for colon cancer - Primary Relevant Orders Cologuard?? colon cancer screening Mixed hyperlipidemia Controlled, on statin therapy, no changes will be made Relevant Medications atorvastatin (Lipitor) 20 MG tablet Primary hypertension Controlled, keep low sodium diet and exercise as tolerated, keep blood pressure log, target <140/90 documented in this encounter Miscellaneous Notes * Assessment & Plan Note - Avni Díaz MD - 12/12/2024 11:10 AM EDTAssociated Problem(s): Mixed hyperlipidemia Controlled, on statin therapy, no changes will be made * Assessment & Plan Note - Avni Díaz MD - 12/12/2024 11:10 AM EDTAssociated Problem(s): Primary hypertension Controlled, keep low sodium diet and exercise as tolerated, keep blood pressure log, target <140/90 documented in this encounter Plan of Treatment Scheduled Orders Name Type Priority Associated Diagnoses Orde r Schedule Cologuard colon cancer screening Lab Routine Screening for colon cancer Ordered: 12/12/2024 documented as of this encounter Visit Diagnoses Diagnosis Screening for colon cancer- Primary Special screening for malignant neoplasms, colon Primary hypertension Unspecified essential hypertension Mixed hyperlipidemia documented in this encounter Additional Health Concerns Assessment Noted Time PHQ-9 Depression Total Score: 2 09/08/19 25 10:21 AM EDT documented as of this encounter Care Teams Rotary Pump Operator Relationship Specialty Start Date End Date Avni Elias MD [address] [place] [id number] PCP - General Internal Medicine 08/11/19 documented as of this encounter
--- NOTE | 2024-12-12 14:39 | ED.GENADULT ---
HPI - General Adult General Chief complaint: Failure to Thrive Stated complaint: Parkinson's / worsening symptoms Time Seen by Provider: 12/12/24 16:58 Source: patient, family and old records reviewed Mode of arrival: ambulatory Limitations: no limitations History of Present Illness ED Provider: MONICA RODRIGUEZ narrative: 63 yo male with PMH of Parkinsons ds, dementia, restless leg syndrome, anxiety followed at [facility] neuro just seen 11/24/24 where his carbidopa and levodopa ER 50-200mg BID his current regimen is: carbidopa-levodopa ER 50-200mg 1 tablet twice a day. carbidopa-levodopa 25-100mg 1 tablet four times a day (at 7am, 11am, 3pm, and 7pm). pramipexole 0.125mg 1 tablet three times a day He comes in today with c/o worsening tremors and numbness in ankles/hands. They note it has been worsening since the new med. The family notes he isn't handling it well and isn't taking the meds at the times directed by his doctor he is sometimes off by 1 or 3 hours. MD complaint: worsening parkinsons Onset (ago): week(s) (few) Severity: moderate Relieving factors: none Exacerbating factors: none Associated symptoms: other Treatments prior to arrival: none Related Data Home Medications ?Medication ?Instructions ?Recorded ?Confirmed atorvastatin 20 mg tablet 20 mg PO DAILY 11/18/24 11/24/24 carbidopa 25 mg-levodopa 100 mg 1 tab PO QID 11/18/24 11/24/24 tablet albuterol sulfate 90 mcg/actuation inhalation 11/24/24 11/24/24 aerosol inhaler (Ventolin HFA) amlodipine 5 mg tablet 5 mg PO QAM 11/24/24 11/24/24 diclofenac potassium 50 mg tablet 50 mg PO TID PRN pain 11/24/24 11/24/24 diclofenac sodium 1 % topical gel 2 g topical TID 11/24/24 11/24/24 sertraline 25 mg tablet 25 mg PO DAILY 11/24/24 11/24/24 zolpidem 10 mg tablet 10 mg PO BEDTIME 11/24/24 11/24/24 Previous Rx's ?Medication ?Instructions ?Recorded azithromycin 250 mg tablet 250 mg PO DAILY #6 tabs 05/21/23 (Zithromax) benzonatate 100 mg capsule 100 mg PO BID PRN cough #10 caps 08/03/22 pramipexole 0.125 mg tablet 0.125 mg PO TID 90 days #270 tabs 11/08/24 carbidopa ER 50 mg-levodopa 200 mg 1 tab PO BID 90 days #180 tabs 11/24/24 tablet,extended release Allergies Allergy/AdvReac Type Severity Reaction Status Date / Time shellfish derived (SHELLFISH Allergy Unknown UNKNOWN Verified 12/12/24 14:42 DERIVED) Seafood Allergy Severe VOMITS, Uncoded 11/24/24 11:07 DIFF BREATHING Review of Systems Review of Systems: Constitutional : No Fever, No Chills, No Fatigue ENT/Mouth : No sore throat, No Rhinorrhea Eyes: No Eye Pain, No Swelling, No Redness Cardiovascular : No Chest Pain, No SOB, No Dyspnea on Exertion Respiratory : No Cough, No Sputum Gastrointestinal : No Nausea, No Vomiting, No Diarrhea, No abdominal Pain Genitourinary : No Dysuria, No Urinary Frequency, No Hematuria, Musculoskeletal : No joint pain, No Myalgias, No Joint Swelling Skin : No Skin Lesions, No rash Neuro : pos Weakness, pos Numbness, No Dizziness, All other systems reviewed and are negative [facility] Past Medical History Attestation statement: The following information was validated with the patient. Source: old records reviewed Medical History Parkinson's disease REM sleep behavior disorder RLS (restless legs syndrome) Dementia Anxiety disorder Social History Social History Smoked in Last 30 Days: No Use of substances other than those prescribed or required for medical reasons: No Advance Directives: No Advance Directives Information Provided: Yes Do you have a plan to hurt others: No Plan Physical Exam ED Vital Signs: Vital Signs - 24 hr 12/12/24 14:40 12/12/24 18:37 Temperature 98.4 F 98.8 F Pulse Rate 101 H 98 Respiratory Rate 22 H 18 Blood Pressure 119/55 L 113/73 Pulse Oximetry 96 96 Oxygen Delivery Method Room Air Room Air BMI result Body Mass Index 36.6 Appearance: Alert. Oriented X3. No acute distress. Eyes: Pupils equal, round and reactive to light. ENT: Pharynx normal. Neck: Normal inspection. Neck supple. CVS: Normal heart rate and rhythm. Pulses normal. Respiratory: No respiratory distress. Breath sounds normal. Abdomen: Soft and nontender. Skin: Skin warm and dry. Normal skin color. Normal skin turgor. Extremities: No lower extremity edema. Neuro: Oriented X 3. No motor deficit. No sensory deficit. R side more tremulous and rolling tremors in UE and LE Course Course Course Narrative: Rapid medical examination performed in triage by Shirley Oliveros PA-C. Patient is a 63 year old assigned male at presenting to the emergency department with worsening tremor and paresthesias. Patient states that his parkinson's has been getting worse with increased shaking and bilateral lower extremity numbness. Detailed physical exam and review of systems are deferred to the fender repairer. Labs ordered. Patient placed back in the waiting room pending room availability and results. Medical Decision Making Medical Decision Making [facility] Narrative: 63 yo male with PMH of Parkinsons ds, dementia, restless leg syndrome, anxiety followed at [facility] neuro here with worsening symptoms after he increased his meds - I am going to obtain CXR and UA to rule out infection. He did have diarrhea this weekend but is tolerating PO and it started after drinking half a bottle of MOM. At this time he refused IVF. I am going to consult his neurology provider as I suspect they will want to cut the new dose down. Family aware I did offer VNA as well for med help. Differential Diagnosis Differential Diagnoses: The differential diagnosis associated with the presentation includes parkinsons, anxiety, non compliance Admission/Observation Consideration of admission/observation: Escalation of care including admission/observation considered wants to go home, labs reassuring, refuses IV fluids Consult Healthcare Provider Management of the patient was discussed with: Divorce Attorney his neurologist evonneds just taking new carbidopa at night not in AM Lab Data [facility] Lab Attestation statement: I reviewed the patient's lab results. 12/12/24 16:11 12/12/24 16:11 Labs: Lab Results 12/12/24 Range/Units 16:11 WBC 6.9 (4.8-10.8) X10*3/uL RBC 5.00 (4.60-5.80) X10*6/uL Hgb 13.6 L (14.0-18.0) g/dl Hct 40.5 L (42.0-52.0) % MCV 81.0 (80.0-98.0) fL MCH 27.2 (27.0-33.0) pg MCHC 33.6 (31.0-36.0) g/dl RDW 14.5 (11.0-16.0) % Plt Count 292 D (160-400) X10*3/uL MPV 9.8 (9.4-12.4) fL Immature Gran % (Auto) 0.3 (0.0-0.4) % Neut % (Auto) 69.2 (45-73) % Lymph % (Auto) 15.3 L (20-40) % Door % (Auto) 8.2 (2-11) % Eos % (Auto) 6.4 H (0-4) % Baso % (Auto) 0.6 (0-2) % Lymph # (Auto) 1.1 L (1.2-4.9) X10*3/uL Door # (Auto) 0.6 (0.1-1.2) X10*3/uL Eos # (Auto) 0.4 (0.0-0.4) X10*3/uL Baso # (Auto) 0.0 (0.0-0.2) X10*3/uL Abs Immat Gran (auto) 0.02 (0.00-0.03) X10*3/uL Absolute Neuts (auto) 4.8 (2.0-8.3) x10*3/uL Absolute Nucleated RBC 0.000 (0.0-0.012) X10*3/uL Nucleated RBC % (auto) 0.0 (0.0-0.2) /100WBC Sodium 140 (135-145) mmol/L Potassium 3.9 (3.3-5.1) mmol/L Chloride 109 H (96-108) mmol/L Carbon Dioxide 23 (22-29) mmol/L Anion Gap 12 (12-20) BUN 17 H (9-16) mg/dL Creatinine 0.91 (0.5-1.4) mg/dL Estim Creat Clear Calc 91.4 Estimated GFR > 60 Random Glucose 125 H (60-115) mg/dL Calcium 9.1 (8.4-10.2) mg/dL Magnesium 2.3 (1.6-2.6) mg/dL Total Bilirubin 0.3 (0.0-1.0) mg/dL AST 15 (5-37) U/L ALT < 6 (0-40) U/L Alkaline Phosphatase 73 (39-117) U/L Troponin I High Sens < 2.7 (<3.5-35.0) ng/L Total Protein 7.7 (6.5-8.0) g/dL Albumin 4.3 (3.5-5.0) g/dL Urine Color Yellow Urine Appearance Clear Urine pH 5.5 (5.0-9.0) Ur Specific Hardy 1.020 (1.005-1.025) Urine Protein Negative (Neg-Trace) mg/dL Urine Glucose (UA) Negative (Negative) mg/dL Urine Ketones Trace (Negative) mg/dL Urine Blood Negative (Negative) Urine Nitrite Negative (Negative) Ur Leukocyte Esterase Negative (Negative) COVID-19 (WOODY) Negative (Negative) COVID-19 Clin Com See Note Influenza Type A (ERIC) Negative (Negative) Influenza Type B (ERIC) Negative (Negative) Influenza A & B Note See Note Independent Interpretation I performed an independent interpretation of an: EKG and Plain X-Ray (normal ) Interpretation: Rate: 103 Rhythm: sinus tach Phil Campbell: normal Normal P waves. Normal JAGRUTI. Normal QRS complex. ST T wave : no MAK SIG artifact due to tremors qTC: 513 but suspect error due to artifact prior studies: no prior The study has been interpreted contemporaneously by me. . Radiology Impression Discussion of test interpretation with radiology: I have reviewed the radiologist's reading. Independent Historian Clinical information obtained from an independent historian. History obtained from or confirmed by: Other (family) External Record Review External record reviewed: Outpatient record Discharge Plan Discharge Clinical Impression: Parkinson's disease Qualifiers: Dyskinesia presence: unspecified whether dyskinesia Fluctuating manifestations: unspecified whether manifestations fluctuate Qualified Code(s): G20.A1 - Parkinson's disease without dyskinesia, without mention of fluctuations Patient Disposition: Home, Self-Care Instructions: Parkinson Disease (ED) Additional Instructions: only take the carbidopa levodopa 50-200 at night no AM dose starting tomorrow. return for any worsening symptoms or concerns your labs, urine and chest xray were reassuring call your neurologist in the AM. Prescriptions: No Action pramipexole 0.125 mg tablet 0.125 mg PO TID 90 Days Qty: 270 0RF azithromycin [Zithromax] 250 mg tablet 250 mg PO DAILY Qty: 6 0RF Rx Instructions: 500 mg day 1 250 mg day 2 through 5 benzonatate 100 mg capsule 100 mg PO BID PRN (Reason: cough) Qty: 10 0RF atorvastatin 20 mg tablet 20 mg PO DAILY carbidopa-levodopa 25-100 mg tablet 1 tab PO QID carbidopa-levodopa 50-200 mg tablet extended release 1 tab PO BID 90 Days Qty: 180 0RF amlodipine 5 mg tablet 5 mg PO QAM diclofenac potassium 50 mg tablet 50 mg PO TID PRN (Reason: pain) sertraline 25 mg tablet 25 mg PO DAILY zolpidem 10 mg tablet 10 mg PO BEDTIME albuterol sulfate [Ventolin HFA] 90 mcg/actuation HFA aerosol inhaler inhalation diclofenac sodium 1 % gel 2 g topical TID Referrals: [facility] [Outside] Referral Note: call to schedule Interventions: ED Discharge Assessment Last Done: 12/12/24 18:37 Discharge Date/Time: 12/12/24 18:37 Print Language: South African
[2024-12-12 14:40] VITALS: BP 119/55; PULSE 101; RESP 22; TEMP 36.9; O2SAT 96; BMI 36.6
--- NOTE | 2024-12-12 14:41 | ECG_ITS ---
Test Reason : WEAKNESS Blood Pressure : */* mmHG Vent. Rate : 103 BPM Atrial Rate : 103 BPM P-R Int : 156 ms QRS Dur : 80 ms QT Int : 392 ms P-R-T Axes : * 36 -20 degrees QTcB Int : 513 ms Artifact in tracing Sinus rhythm Due to artifact, cannot assess further When compared with ECG of 23-Jun-2022 19:46, due to artifact, cannot assess Referred By: Shirley Oliveros Electronically Signed By: CATIE QUISPE
[2024-12-12 16:17] LABS: MANUAL DIFF FLAG NO
--- NOTE | 2024-12-12 16:18 | PC.NURSE ---
Triage tech came to supercharger mechanic to report that she has been attempting the EKG order on pt for multiple minutes, pt has really bad tremors from his parkinsons, tech unable to get a readable EKG, verbally told by ALY Watson that it was okay to wait at this time until pt is brought back to main.
[2024-12-12 16:19] LABS: Hematocrit 40.5 % (42.0-52.0); Hemoglobin 13.6 g/dl (14.0-18.0); Imm Gran Abs Auto 0.02 X10*3/uL (0.00-0.03); Imm Gran Pct Auto 0.3 % (0.0-0.4); Lymphocytes Absolute Auto 1.1 X10*3/uL (1.2-4.9); Mean Corpuscular HGB Conc 33.6 g/dl (31.0-36.0); Mean Corpuscular Hemoglobin 27.2 pg (27.0-33.0); Mean Corpuscular Volume 81.0 fL (80.0-98.0); NRBC Abs Auto 0.000 X10*3/uL (0.0-0.012); NRBC Pct Auto 0.0 /100WBC (0.0-0.2); Platelet Count 292 X10*3/uL (160-400); Red Blood Count 5.00 X10*6/uL (4.60-5.80); White Blood Count 6.9 X10*3/uL (4.8-10.8)
[2024-12-12 16:21] LABS: Appearance Urine Clear; Glucose Urine UA Negative (Negative); PH 5.5 (5.0-9.0); Specific Gravity - Urine 1.020 (1.005-1.025)
[2024-12-12 16:35] LABS: Alanine Aminotransferase < 6 U/L (0-40); Albumin Level 4.3 g/dL (3.5-5.0); Alkaline Phosphatase 73 U/L (39-117); Anion Gap 12 (12-20); Aspartate Amino Transferase 15 U/L (5-37); Blood Urea Nitrogen 17 mg/dL (9-16); Calcium 9.1 mg/dL (8.4-10.2); Carbon Dioxide 23 mmol/L (22-29); Chloride 109 mmol/L (96-108); Creatinine Clr Calc Pharmacy 91.4; Estimated Glomerular Filt Rate > 60; Magnesium 2.3 mg/dL (1.6-2.6); Potassium 3.9 mmol/L (3.3-5.1); Sodium 140 mmol/L (135-145); Total Protein 7.7 g/dL (6.5-8.0)
--- NOTE | 2024-12-12 16:36 | MHC.EDTECH ---
This tech attempted multiple times to obtain an EKG in triage area, pt has Tremors from Parkinson's and unable to obtain,ALY Watson aware and said to hold at this time, char house supervisor aware
[2024-12-12 16:41] LABS: Troponin-I High Sensitivity < 2.7 ng/L (<3.5-35.0)
[2024-12-12 16:45] LABS: COVID-19 Test Negative (Negative); IDNOW Serial# 55D5AD1C; IDNOW Serial# 58CA691E; Influenza B2 Negative (Negative)
--- OUTSIDE RECORDS SUMMARY | 2024-12-12 18:33 | XMS_ITS | Encounter Summary ---
Author Organization [employer] Address [address] [facility] 7 [place] [address] Care Team Providers Care Lime Filter Operator Name Role Phone Avni Elias MD Primary Care Prov ider Reason for Visit * Reason Onset Date Comments Med Refill 11/11/2023 Encounter Details Date Type Department Care Team ([facility] st Contact Info) Description 11/11/2023 Telephone [facility] [address] [place] [address] Avni Elias MD [address] [place] [address] Med Refill Social History Tobacco Use Types Packs/Day Years Used Date Smoking Tobacco: Never Smokeless Tobacco: Never Alcohol Use Standard Drinks/Week Comments Not Currently 0 (1 standard drink = 0.6 oz pur e alcohol) Depression Answer Date Recorded Patient Health Questionnaire-9 Score 2 06/04/2022 Housing Stability Answer Date Recorded What is [...] Date Recorded Patient Health Questionnaire-2 Score 2 06/04/2022 Sex and Gender Information Value Date Recorded Sex Assigned at Male 01/13/2022 10:37 AM EDT Legal Sex Male 10:37 AM EDT Gender Identity Male 01/13/2022 10:37 AM EDT Sexual Orientation Straight 12/25/2022 3: 40 PM EDT documented as of this encounter Miscellaneous Notes * Telephone Encounter - Roscoe Whipple - 11/11/2023 1:40 PM EDT TC from pt requesting medication refill. Medications needing refill: zolpidem (Ambien) 10 MG tablet To be sent to: [facility] - [place], [place] - [address] [place] [address] documented in this encounter Plan of Treatment Not on file documented as of this encounter Visit Diagnoses Not on filedocumented in this encounter Additional Health Concerns Assessment Noted Time PHQ-9 Depression Total Score: 2 06/05/19 23 3:24 PM EDT documented as of this encounter Care Teams Lime Filter Operator Relationship Specialty Start Date End Date Avni Elias MD [address] [place] [id number] PCP - General Internal Medicine 08/11/19 documented as of this encounter
--- OUTSIDE RECORDS SUMMARY | 2024-12-12 18:33 | XMS_ITS | Encounter Summary ---
Author Organization [employer] Address [address] [place] [address] [address] [place] [address] Care Team Providers Care Shell Shop Supervisor Name Role Phone Avni Elias MD Primary Care Prov ider Reason for Visit * Reason Comments Med Refill Encounter Details Date Type Department Care Team ([facility] st Contact Info) Description 05/07/2022 Refill [facility] [address] [place] [address] Avni Elias MD [address] [place] [address] Primary insomnia Social History Tobacco Use Types [...] as of this encounter Plan of Treatment Not on file documented as of this encounter Visit Diagnoses Diagnosis Primary insomnia Persistent disorder of initiating or maintaining sleep documented in this encounter Care Teams Shell Shop Supervisor Relationship Specialty Start Date End Date Avni Elias MD [address] [place] [address] PCP - General Internal Medicine 08/11/19 documented as of this encounter
--- OUTSIDE RECORDS SUMMARY | 2024-12-12 18:33 | XMS_ITS | Encounter Summary ---
Author Organization [employer] Address [address] [place] [address] Care Team Providers Care Deburrer Name Role Phone Avni Elias MD Primary Care Prov ider Encounter Details Date Type Department Care Team (Latest Contact Info) Description 12/12/2024 Travel Social History Tobacco Use Types Packs/Day Years [...] documented as of this encounter Care Teams Deburrer Relationship Specialty Start Date End Date Avni Elias MD [address] [place] [phone] PCP - General Internal Medicine 08/11/19 documented as of this encounter
--- OUTSIDE RECORDS SUMMARY | 2024-12-12 18:33 | XMS_ITS | Encounter Summary ---
Author Organization [employer] Address [address] [facility] 7 [place] [address] Care Team Providers Care Director Of Product Marketing Name Role Phone Avni Elias MD Primary Care Prov ider Reason for Visit * Reason Onset Date Comments Med Refill 12/09/2024 Encounter Details Date Type Department Care Team ([facility] st Contact Info) Description 12/09/2024 Refill [facility] [address] [place] [address] Avni Elias MD [address] [place] [address] Primary insomnia Social History Tobacco Use Types [...] your housing situation today? I have jose magalalnes 12/29/[address] you li [...] encounter Miscellaneous Notes * Telephone Encounter - Joseline Phelps LPN - 12/09/2024 11:12 AM EDT BOTTLING LINE OPERATOR checked on 12/09/24. Last seen 09/07/24. documented in this encounter Plan of Treatment Not on file documented as of this encounter Visit Diagnoses Diagnosis Primary insomnia Persistent disorder of initiating or maintaining sleep documented in this encounter Additional Health Concerns Assessment Noted Time PHQ-9 Depression Total Score: 2 09/08/19 25 10:21 AM EDT documented as of this encounter Care Teams Director Of Product Marketing Relationship Specialty Start Date End Date Avni Elias MD [address] [place] [phone] PCP - General Internal Medicine 08/11/19 documented as of this encounter
--- OUTSIDE RECORDS SUMMARY | 2024-12-12 18:33 | XMS_ITS | Encounter Summary ---
Author Organization [employer] Address [address] [facility] 7 [place] [address] Care Team Providers Care Unit Control Worker Name Role Phone Avni Elias MD Primary Care Prov ider Reason for Visit * Reason Onset Date Comments Med Refill 08/06/2022 Encounter Details Date Type Department Care Team ([facility] st Contact Info) Description 08/06/2022 Telephone [facility] [address] [place] [address] Avni Elias MD [address] [place] [phone] Med Refill Social History Tobacco Use Types Packs/Day Years Used Date Smoking Tobacco: Never Smokeless Tobacco: Never Alcohol Use Standard Drinks/Week Comments Not Currently 0 (1 standard drink = 0.6 oz pur e alcohol) Depression Answer Date Recorded Patient Health Questionnaire-9 Score 2 06/04/2022 Depression Answer Date Recorded Patient Health Questionnaire-2 Score 2 06/04/2022 Sex and Gender Information Value Date Recorded Sex Assigned at Male 01/13/2022 10:37 AM EDT Legal Sex Male 10:37 AM EDT Gender Identity Male 01/13/2022 10:37 AM EDT Sexual Orientation Straight 12/25/2022 3: 40 PM EDT COVID-19 Exposure Response Date Recorded In the last 10 days, have yo u been in contact with someone who was confirmed or suspected to have Coronavirus/COVID-19? No / Unsure 07/23/2022 11:25 AM EDT documented as of this encounter Miscellaneous Notes * Telephone Encounter - Alexander Adams - 08/06/2022 11:04 AM EDT Tc from pt requesting med refill on zolpidem (Ambien) 10 MG tablet Please sent to [facility] - [place], [place] - [address] documented in this encounter Plan of Treatment Not on file documented as of this encounter Visit Diagnoses Not on filedocumented in this encounter Additional Health Concerns Assessment Noted Time PHQ-9 Depression Total Score: 2 06/05/19 23 3:24 PM EDT documented as of this encounter Care Teams Unit Control Worker Relationship Specialty Start Date End Date Avni Elias MD [address] [place] [id number] PCP - General Internal Medicine 08/11/19 documented as of this encounter
--- OUTSIDE RECORDS SUMMARY | 2024-12-12 18:33 | XMS_ITS | Encounter Summary ---
Author Organization [employer] Address [address] [facility] 7t [place] [address] Care Team Providers Care Inside Outside Sales Representative Name Role Phone Avni Elias MD Primary Care Prov ider Encounter Details Date Type Department Care Team ([facility] st Contact Info) Description 06/06/2022 Abstract [facility]S [address] [place], [place] [phone] Avni Elias MD [address] [place] [address] Social History Tobacco Use Types Packs/Day Years [...] suspected to have Coronavirus/COVID-19? No / Unsure 06/04/2022 3:07 PM EDT documented as of this encounter Plan of Treatment Not on file documented as of this encounter Visit Diagnoses Not on filedocumented in this encounter Additional Health Concerns Assessment Noted Time PHQ-9 Depression Total Score: 2 06/05/19 23 3:24 PM EDT documented as of this encounter Care Teams Inside Outside Sales Representative Relationship Specialty Start Date End Date vAni Elias MD [address] [place] [phone] PCP - General Internal Medicine 08/11/19 documented as of this encounter
--- OUTSIDE RECORDS SUMMARY | 2024-12-12 18:33 | XMS_ITS | Encounter Summary ---
Author Organization [employer] Address [address] [facility] 7t [place] [address] Care Team Providers Care Double Needle Operator Lockstitch Name Role Phone Avni Elias MD Primary Care Prov ider Reason for Visit * Reason Comments Med Change Request Encounter Details Date Type Department Care Team ([facility] Contact Info) Description 10/16/2023 Refill [facility] [address] [place], [place] [phone] Lynne Lam MD [address] [place] [address] Social History Tobacco Use Types Packs/Day Years [...] documented as of this encounter Care Teams Double Needle Operator Lockstitch Relationship Specialty Start Date End Date Avni Elias MD [address] [place] [phone] PCP - General Internal Medicine 08/11/19 documented as of this encounter
--- OUTSIDE RECORDS SUMMARY | 2024-12-12 18:33 | XMS_ITS | Clinical Summary ---
Author Organization [employer] Address [address] [facility] [address] [place] [address] Care Team Providers Care Grinder Set Up Operator Thread Name Role Phone Avni Elias MD Primary Care Prov ider Allergies Active Allergy Reactions Criticality Noted Date Comments Shellfish-Derived Products 0 Medications * This document contains information received from the source organization and may not represent a complete record from that organization. carbidopa-levod opa (Sinemet) 25-100 MG tablet take 1 tablet by oral route 3 times every day Active pramipexole (Mirapex) 0.5 MG tablet take 1 tablet by oral route 3 times every day Active albuterol (2.5 MG/3ML) 0.083% nebulizer solution Take 3 mL (2.5 mg) by nebulization every 8 (eight) hours if needed for wheezing. 75 mL 2 024 Active methocarbamol (Robaxin) 750 MG tablet TAKE 1 TABLET BY MOUTH FOUR TIMES DAILY FOR 10 DAYS 40 tablet 024 Active amLODIPine (Norvasc) 5 MG tabletIndicatio ns:Primary hypertension TAKE 1 TABLET BY MOUTH EVERY DAY IN THE MORNING 90 tablet 1 025 Active Diclofenac Sodium 1 % gel APPLY 2 GRAMS TOPICALLY TO AFFECTED AREA(S) THREE TIMES DAILY 200 g 2 025 Active albuterol (Ventolin HFA) 108 (90 Base) MCG/ACT inhalerIndicati ons:Mild intermittent asthma without complication INHALE 2 PUFFS BY MOUTH EVERY 4 TO 6 HOURS NEEDED FOR WHEEZING OR SHORTNESS OF BREATH 18 g 1 025 Active diclofenac (Cataflam) 50 MG tabletIndicatio ns:Left foot pain TAKE 1 TABLET BY MOUTH THREE TIMES DAILY NEEDED FOR PAIN 60 tablet 1 Active zolpidem (Ambien) 10 MG tabletIndicatio ns:Primary insomnia TAKE 1 TABLET BY MOUTH EVERY DAY AT BEDTIME 30 tablet Active lidocaine-prilo nanci (Emla) 2.5-2.5 % cream Apply topically 1 (one) time for 1 dose. 90 g 3 025 2024 Active atorvastatin (Lipitor) 20 MG tablet Take 1 tablet (20 mg) by mouth Once per day. 90 tablet 3 025 2025 Active atorvastatin (Lipitor) 20 MG tablet Take 1 tablet (20 mg) by mouth Once per day. 90 tablet 3 025 2024 Discontinued(R eorder (will not trigger notification to Pharmacy)) diclofenac (Cataflam) 50 MG tabletIndicatio ns:Left foot pain TAKE 1 TABLET BY MOUTH THREE TIMES DAILY NEEDED FOR PAIN 60 tablet 1 025 2024 Discontinued zolpidem (Ambien) 10 MG tabletIndicatio ns:Primary insomnia TAKE 1 TABLET BY MOUTH EVERY DAY AT BEDTIME 30 tablet 025 2024 Discontinued(R eorder (will not trigger notification to Pharmacy)) Active Problems Problem Noted Date Diagnosed Date Obesity, morbid 01/29/2024 Thrombocytopenia 03/12/2023 Assessment & Plan (03/28/2023 2:55 PM EST): Stable, platelet results back to normal, continue monitoring Assessment & Plan (03/12/2023 7:38 PM EST): Improved to 135, no sign of petechia/bruises/hematoma/bleeding, will monitor, will leave new labs to be done 1 week prior next appointment Primary insomnia 07/23/2022 Assessment & Plan (09/07/2024 1:22 PM EDT): Continue zolpidem, lifestyle modifications reviewed Assessment & Plan (10/30/2023 11:47 AM EDT): Improved with zolpidem, no changes will be made, continue lifestyle modifications Assessment & Plan (10/09/2022 11:54 AM EDT): Improved symptoms with current ambien 10mg, no changes will be made Assessment & Plan (07/23/2022 5:46 PM EDT): Will increase ambien to 10mg, lifestyle modifications were reinforced Primary hypertension 06/24/2022 Assessment & Plan (12/12/2024 11:10 AM EDT): Controlled, keep low sodium diet and exercise as tolerated, keep blood pressure log, target <140/90 Assessment & Plan (09/07/2024 1:22 PM EDT): Controlled, keep low sodium diet and exercise as tolerated, keep bp log, target <140/90 Assessment & Plan (06/07/2024 11:05 AM EDT): Controlled, keep low sodium diet and exercise as tolerated, keep bp log, target <140/90, no changes will be made, pending blood work previously ordered Assessment & Plan (01/29/2024 2:00 PM EST): Controlled, refers at home remains below 140/90, no changes will be made, keep low sodium diet, keep bp log, follow up in 3 months Assessment & Plan (10/30/2023 11:48 AM EDT): Controlled, continue amlodipine 5mg, encouraged weight loss, keep bp log and low sodium diet Assessment & Plan (07/02/2023 10:42 AM EDT): Controlled, continue amlodipine, continue low sodium diet, keep bp log, target <140/90 Assessment & Plan (03/28/2023 2:55 PM EST): Stable, reinforced importance of low sodium diet and exercise as tolerated, follow up in 3-4 months Assessment & Plan (03/12/2023 7:38 PM EST): Controlled, on amlodipine, reinforced low sodium diet and exercise as tolerated follow up in 3 months Assessment & Plan (10/09/2022 11:50 AM EDT): Controlled, on amlodipine, reinforced low sodium diet and exercise as tolerated, will order new labs Assessment & Plan (07/23/2022 5:45 PM EDT): Controlled, continue daily monitoring, reinfporced low sodium diet and exercise as tolerated Assessment & Plan (06/24/2022 3:42 PM EDT): Patient with history of parkinson's and continuous elevated blood pressure readings. At this point will start on amlodipine, advised to RTC if not tolerable. Schedule appointment with PCP. Left foot pain 06/24/2022 Assessment & Plan (06/24/2022 3:43 PM EDT): Patient with chronic Left foot pain. At this point will send for xray and refer to podiatry. Will start on diclofenac for pain mangement. Insomnia due to medical condition 04/07/2022 Assessment & Plan (06/07/2024 11:04 AM EDT): Continue with zolpidem, no changes will be made Assessment & Plan (01/29/2024 1:57 PM EST): Improved with zolpidem, continue sleep hygiene techniques, follow up as needed Assessment & Plan (04/07/2022 2:46 PM EST): Improved with ambien, no changes will be made, lifestyle medications reinforced Parkinson disease ([facility]) 04/07/2022 Assessment & Plan (01/29/2024 1:59 PM EST): Followed by neurology on mirapex and sinemet, symptoms stable Will send orders for wipes, since he has uncontrolled shaking he can't control his urine and bowel movement therefore he will benefit from the wipes for better hygiene Assessment & Plan (06/06/2022 9:29 AM EDT): Patient disease has been progressing, followed by neurology, patient will need ELECTRIC METER INSTALLER HELPER hours to help him with ADL, will provide a list to contact services Patient needs a recliner will provide a script: he has motor dissabilities (parkinson dx), this will improve stading up and in his ADL Will send script for commode patient has unsteady gait/instability at risk for fall when bathing Walker: patient with unstady gait at high risk for fall will need a walker for stability and helping with ADL Assessment & Plan (04/07/2022 2:48 PM EST): Followed by neurology, he refers was seen last month, on carbidopa/levodopa and pramiprexole Screening for colon cancer 04/07/2022 Assessment & Plan (10/30/2023 11:49 AM EDT): Patient does not want to undergo though the colonosocpy, prefers cologuard, will send order Assessment & Plan (03/28/2023 2:59 PM EST): Will place gastroenterology referral for screening colonoscopy Assessment & Plan (06/04/2022 5:28 PM EDT): Will refer for screening colonoscopy Mixed hyperlipidemia 04/07/2022 Assessment & Plan (12/12/2024 11:10 AM EDT): Controlled, on statin therapy, no changes will be made Assessment & Plan (09/07/2024 1:21 PM EDT): On statin therapy, patient refers not taking it daily, discussed importance of controlling cholesterol Assessment & Plan (10/30/2023 11:49 AM EDT): Refers not taking atorvastatin daily as prescribed, encouraged to take it daily risk vs benefits discussed Assessment & Plan (10/09/2022 11:53 AM EDT): Patient refers not taking atorvastatin for the past 2 months, will order labs for guidance of therapy Assessment & Plan (06/04/2022 5:28 PM EDT): Will place order for new labs for guidance of therapy Encounters * This document contains information received from the source organization and may not represent a complete record from that organization. Date Type Department Care Team Description 12/12/2024 10:30 AM EDT Telemedicine [facility] [address] [phone] Avni Elias MD Screening for colon cancer (Primary Dx); Primary hypertension; Mixed hyperlipidemia 12/12/2024 Orders Only [facility] External Provider, [facility] 12/12/2024 Travel 12/09/2024 Refill [facility] [address] [place] [address] Avni Elias MD Primary insomnia 11/20/2024 Refill [facility] [address] [place] [address] Avni Elias MD Left foot pain 11/07/2024 Refill [facility] [address] [place] [address] Avni Elias MD Primary insomnia 10/20/2024 Refill [facility] [address] [place] [address] Avni Elias MD Mild intermittent asthma without complication 10/18/2024 Refill [facility] [address] [place] [address] Avni Elias MD Left foot pain 10/10/2024 Refill [facility] [address] [place] [address] Avni Elias MD Primary insomnia from Last 3 Months Immunizations Immunization Administration Dates Next Due Influenza injectable quadriv alent preservative free 12/23/2022,01/29/2022,12/23/2020,2019 Influenza, seasonal, injecta ble, preservative free 01/29/2024 Pneumococcal Conjugate PCV 20 01/29/2024 TD (adult), 2 Lf tetanus tox oid, preservative free, adsorbed 08/22/2017 Tdap 01/29/2024 Zoster, Recombinant 03/02/2020 Family History Medical History Relation Name Comments Breast cancer Mother Colon cancer Mother Relation Name Status Comments Mother Social History Tobacco Use Types Packs/Day Years Used Date Smoking Tobacco: Never Smokeless Tobacco: Never Tobacco Cessation:Counseling Given: Not Answered Alcohol Use Standard Drinks/Week Comments Not Currently [...] Orientation Straight 12/25/2022 3: 40 PM EDT Last Filed Vital Signs Vital Sign Reading Time Taken Comments Blood Pressure 115/81 12/12/2024 10:24 AM EDT Pulse 92 12/12/2024 10:24 AM EDT Temperature 36.9 C (98.5 F) 01/29/2024 9:43 AM EST Respiratory Rate 12 01/29/2024 9:43 AM EST Oxygen Saturation 96% 01/29/2024 9:43 AM EST Inhaled Oxygen Concentration - - Weight 96.6 kg (213 lb) 01/29/2024 9:43 AM EST Height 165.1 cm (5' 5 ) 01/29/2024 9:43 AM EST Body Mass Index 35.45 01/29/2024 9:43 AM EST Plan of Treatment Health Maintenance Due Date Last Done Comments CT Colonography 1960 Colonoscopy 1961 Colorectal Cancer Screening 1960 Dental Oral Exam 1961 Dental Prophylaxis 1961 Dental X-Ray: Bitewings 1961 Dental X-Ray: Full Mouth 1961 FIT DNA/Cologuard 1961 FIT 1961 FOBT 1960 Sigmoidoscopy 1960 Disability Screening 1961 Alcohol/Substance Use Screening 1973 Zoster Vaccines (2 of 2) 04/27/2020 03/02/2020 RSV Patients and Patients Aged 60 years or older (1 - Risk 60-74 years 1-dose series) 2021 SDOH Screening 06/05/2023 06/04/2022 COVID-19 Vaccine (3 - season) 2024 05/09/2020, 04/11/2020 Influenza Vaccine (#1) 2024 , 12/23/2022, 01/29/2022, Additional history exists Tobacco Screening 01/28/2025 01/29/2024 Depression Screening 09/07/2025 09/07/2024, 09/08/19 Diabetes: Hemoglobin A1C 09/28/2025 025, 11/28/2021, 01/12/2020 Lipid Panel 09/28/2029 09/28/2024, 0604/2023, 11/28/2022, Additional history exists DTaP/Tdap/Td Vaccines (2 - Td or Tdap) 01/28/2034 01/29/2024, 08/22/2017 HIV Screening Completed 01/12/2020 Hepatitis C Screening Completed 11/28/2022, 022 Pneumococcal Vaccine: 50+ Years Completed 01/29/2024 HIB Vaccines Aged Out No longer eligi ble based on patient's age to complete this topic HPV Vaccines Aged Out No longer eligi ble based on patient's age to complete this topic Hepatitis A Vaccines Aged Out No long er eligible based on patient's age to complete this topic Hepatitis B Vaccines Aged Out No long er eligible based on patient's age to complete this topic IPV Vaccines Aged Out No longer eligi ble based on patient's age to complete this topic Meningococcal B Vaccine Aged Out No l onger eligible based on patient's age to complete this topic Meningococcal Vaccine Aged Out No iqra reddy eligible based on patient's age to complete this topic RSV under 20 months Aged Out No longe r eligible based on patient's age to complete this topic Rotavirus Vaccines Aged Out No longer eligible based on patient's age to complete this topic Procedures Procedure Name Priority Date/Time Associated Diagnosis Comments COVID-19 ID NOW (LUJAN) Routine 12/12/2024 4:11 PM EDT HIGH SENSITIVITY TROPONIN I Routine 12/12/2024 4:11 PM EDT MAGNESIUM Routine 12/12/2024 4:11 PM EDT COMPREHENSIVE METABOLIC PANEL Routine 12/12/2024 4:11 PM EDT CBC WITH AUTO DIFFERENTIAL Routine 12/12/2024 4:11 PM EDT URINALYSIS WITH REFLEX MICROSCOPIC Routine 12/12/2024 4:11 PM EDT INFLUENZA A B2 ID NOW (LUJAN) Routine 12/12/2024 4:11 PM EDT XR CHEST 2 VIEWS Routine 12/12/2024 2:45 PM EDT CBC WITH AUTO DIFFERENTIAL Routine 09/28/2024 8:36 AM EDT Obesity, morbid (CMS/HCC) HEMOGLOBIN A1C Routine 09/28/2024 8:35 AM EDT Obesity, morbid (CMS/HCC) TSH W/REFLEX TO FT4 Routine 09/28/2024 8 :35 AM EDT Obesity, morbid (CMS/HCC) LIPID PANEL, STANDARD Routine 09/28/2024 8:35 AM EDT Obesity, morbid (CMS/HCC) COMPREHENSIVE METABOLIC PANEL Routine 09/28/2024 8:35 AM EDT Obesity, morbid (CMS/HCC) HEPATITIS PANEL, GENERAL Routine 11/28/2022 10:21 AM EDT Primary hypertension HIV 1/2 ANTIGEN/ANTIBODY, FOURTH GENERATION W/RFL Routine 01/12/2020 9:36 AM EDT from Last 3 Months or Most Recently Relevant to Health Maintenance Results * Influenza A B2 ID NOW (Lujan) (12/12/2024 4:11 PM EDT) IDNOW SERIAL# [id number] [facility] Influenza A Negative Negative [facility] Influenza B2 Negative Negative [facility] Influenza A B2 Note See Note [facility] Comment:The Lujan ID NOW In fluenza A B2 test is used for thequalitative detection of influenza A and B from patientswith signs and symptoms of respiratory infection.Negative results do not preclude influenza virus infectionand should not be used as the sole basis for diagnosis,treatment or other patient management decisions.There is a risk of false negative results due to thepresence of variants in the viral targets of the assay, lowlevels of virus in the specimen and co- infection withRespiratory Syncytial Virus. 12/12/2024 4:11 PM EDT 12/12/2024 4:17 PM EDT us Generic External Data Provider LAB MICROBIOLOGY - GENERAL ORDERABLES Final Result [facility] [address] [place] [phone] * COVID-19 ID NOW (LUJAN) (12/12/2024 4:11 PM EDT) [facility] IDNOW SERIAL# [id number] [facility] COVID-19 TEST Negative Negative [facility] COVID-19 NOTE See Note [facility] Comment: Results are for the identification of SARS-CoV2 RNA. TheSARS-CoV2 RNA is generally detectable in respiratory samplesduring the acute phase of infection. Positive results areindicative of the presence of SARS-CoV-2 RNA; clinicalcorrelation with patient history and other diagnosticinformation is necessary to determine patient infectionstatus. Positive results do not rule out bacterial infectionor co- infection with other viruses.Testing facilities within the [facility] and [facility] are required to report all positive results tothe appropriate public health authorities.Negative results should be treated as presumptive and, ifinconsistent with clinical signs and symptoms or necessaryfor patient management, should be tested with differentauthorized or cleared molecular tests. Negative results donot preclude SARS-CoV2 RNA infection and should not be usedas the sole basis for patient management decisions. Negativeresults should be considered in the context of a patient'srecent exposures, history and the presence of clinical signsand symptoms consistent with COVID-19.This test has been authorized by the FDA under an EmergencyUse Authorization (EUA) for use by authorized laboratories.Testing performed on the Lujan ID NOW utilizing NAAT. 12/12/2024 4:11 PM EDT 12/12/2024 4:17 PM EDT us Generic External Data Provider LAB MOLECULAR OLI GNOSTICS ORDERABLES Final Result [facility] [address] [place] [phone] * High Sensitivity Troponin I (12/12/2024 4:11 PM EDT) [facility] TROPONIN I HIGH SENSITIVITY <2.7 <3.5 - 35.0 ng/L [facility] Comment:The Lujan high sens itivity Troponin-I results should beused in conjunction with other diagnostic information suchas ECG, clinical observations and information, and patientsymptoms to aid in the diagnosis of AL. 12/12/2024 4:11 PM EDT 12/12/2024 4:16 PM EDT us Generic External Data Provider LAB BLOOD ORDERAB LES Final Result [facility] [address] [place] [phone] * (ABNORMAL) CBC auto differential (12/12/2024 4:11 PM EDT) Only the most recent of2 resultswithin the time period is included. White Blood Count 6.9 4.8 - 10.8 X10*3/uL [facility] Red Blood Count 5.00 4.60 - 5.80 X10*6/uL [facility] Hemoglobin 13.6(L) 14.0 - 18.0 g/dl [facility] Hematocrit 40.5(L) 42.0 - 52.0 % [facility] Mean Corpuscular Volume 81.0 80.0 - 98.0 fL [facility] Mean Corpuscular Hemoglobin 27.2 27.0 - 33.0 pg [facility] Mean Corpuscular HGB Conc 33.6 31.0 - 36.0 g/dl [facility] Red Cell Distribution Width 14.5 11.0 - 16.0 % [facility] Platelet Count 292 160 - 400 X10*3/uL [facility] Mean Platelet Volume 9.8 9.4 - 12.4 fL [facility] Neutrophils Percent Auto 69.2 45 - 73 % [facility] Imm Gran Pct Auto 0.3 0.0 - 0.4 % [facility] Lymphocytes Percent Auto 15.3(L) 20 - 40 % [facility] Monocytes Percent Auto 8.2 2 - 11 % [facility] Eosinophils Percent Auto 6.4(H) 0 - 4 % [facility] Basophils Percent Auto 0.6 0 - 2 % [facility] NRBC Pct Auto 0.0 0.0 - 0.2 /100WBC [facility] Neutrophils Absolute Auto 4.8 2.0 - 8.3 x10*3/uL [facility] Imm Gran Abs Auto 0.02 0.00 - 0.03 X10*3/uL [facility] Lymphocytes Absolute Auto 1.1(L) 1.2 - 4.9 X10*3/uL [facility] Monocytes Absolute Auto 0.6 0.1 - 1.2 X10*3/uL [facility] Eosinophils Absolute Auto 0.4 0.0 - 0.4 X10*3/uL [facility] Basophils Absolute Auto 0.0 0.0 - 0.2 X10*3/uL [facility] NRBC Abs Auto 0.000 0.0 - 0.012 X10*3/uL [facility] 12/12/2024 4:11 PM EDT 12/12/2024 4:16 PM EDT us Generic External Data Provider LAB BLOOD ORDERAB LES Final Result [facility] [address] [place] [phone] * Urinalysis w/reflex microscopic (12/12/2024 4:11 PM EDT) Color Urine Yellow [facility] Appearance Urine Clear [facility] PH 5.5 5.0 - 9.0 [facility] Glucose Urine UA Negative Negative mg/dL [facility] Urine Blood Negative Negative [facility] Specific Pickerel - Urine 1.020 1.005 - 1.025 [facility] Urine Protein Negative Neg-Trace mg/dL [facility] Urine Ketones Trace Negative mg/dL [facility] Nitrite Urine Negative Negative [facility] Leukocyte Esterase Urine Negative Negative [facility] 12/12/2024 4:11 PM EDT 12/12/2024 4:16 PM EDT Narrative [facility] - 12/12/2024 4:22 PM EDT [id number], Clean [employer]atch us Generic External Data Provider LAB URINE ORDERAB LES Final Result Performing Organization Address [facility]/ZIP Co de Phone Number [facility] [address] [place] [phone] * Magnesium (12/12/2024 4:11 PM EDT) Pathologist [facility] Magnesium 2.3 1.6 - 2.6 mg/dL [facility] 12/12/2024 4:11 PM EDT 12/12/2024 4:16 PM EDT Generic External Data Provider LAB BLOOD ORDERAB LES Final Result Performing Organization Address [facility] de Phone Number [facility] [address] [place] [phone] * (ABNORMAL) Comprehensive Metabolic Panel (12/12/2024 4:11 PM EDT) Only the most recent of2 resultswithin the time period is included. Sodium 140 135 - 145 mmol/L [facility] Potassium 3.9 3.3 - 5.1 mmol/L [facility] Chloride 109(H) 96 - 108 mmol/L [facility] Carbon Dioxide 23 22 - 29 mmol/L [facility] Anion Gap 12 12 - 20 [facility] Urea Nitrogen (BUN) 17(H) 9 - 16 mg/dL [facility] Creatinine, Serum 0.91 0.5 - 1.4 mg/dL [facility] Creatinine Clr Calc Pharmacy 91.4 [facility] Comment:eGFR (calculated fro m the MDRD study equation) and eCrCl(calculated from the Cockcroft-Gault equation) are based ondifferent parameters and may not yield comparable results.If eCrCl result is absurd, please check patient'sheight/weight. Estimated Glomerular Filt Rate >60 [facility] Comment:Chronic Kidney Disea se: Estimated GFR < 60 mL/min/1.17u1Cfqrhx Kidney Disease: Estimated GFR < 15 mL/min/1.73m2 Glucose 125(H) 60 - 115 mg/dL [facility] Calcium 9.1 8.4 - 10.2 mg/dL [facility] Bilirubin, Total 0.3 0.0 - 1.0 mg/dL [facility] Aspartate Amino Transferase 15 5 - 37 U/L [facility] Alanine Aminotransferase <6 0 - 40 U/L [facility] Total Protein 7.7 6.5 - 8.0 g/dL [facility] Albumin Level 4.3 3.5 - 5.0 g/dL [facility] Alkaline Phosphatase 73 39 - 117 U/L [facility] 12/12/2024 4:11 PM EDT 12/12/2024 4:16 PM EDT us Generic External Data Provider LAB BLOOD ORDERAB LES Final Result Performing Organization Address City/State/[facility] Co de Phone Number [facility] [address] [place] [address] [phone] * XR Chest 2 Views (12/12/2024 2:45 PM EDT) Anatomical Region Laterality Modality Chest Radiographic Latesha ging 12/12/2024 2:45 PM EDT Narrative 12/12/2024 2:59 PM EDT [address] [phone] XRay Report Signed Patient: Jeffry Castañeda MR#: [id number] 2 : 1960 Acct:[id number] Age/Sex: 63 / M ADM Date: 12/12/24 Loc: .ED Attending Dr: Ordering Physician: Shirley Oliveros Date of Service: 12/12/24 Procedure(s): XR chest 2V Accession Number(s): [id number] cc: Avni Elias MD; Shirley Oliveros Reason for Exam: weakness EXAMINATION: XR CHEST CLINICAL INFORMATION: weakness COMPARISON: August 03, 2022 TECHNIQUE: 2 views of the chest were obtained. FINDINGS: No significant abnormality is noted involving the heart, lungs, mediastinum, bony thorax or soft tissues. XR/XR chest 2V IMPRESSION: No acute disease Electronically signed by: Dwight Galvan MD 12/12/2024 02:56 PM EDT RP Dictated By: Dwight Galvan MD Signed By: <Electronically signed by Dwight Galvan MD in OV> 12/12/24 1456 DD/ 1445 TD/TT: 12/12/24 1450 Mud Plant Operator: Procedure Note Donotuseinterpreter, Image - 12/12/2024 [address] [place] [address] XRay Report Signed Patient: Kaleb Castañeda#: [id number] 2 : 2Acct:[id number] Age/Sex: 63 / MADM Date: 12/12/24 Loc: .ED Attending Dr: Ordering Physician: Shirley Oliveros Date of Service: 12/12/24 Procedure(s): XR chest 2V Accession Number(s): [id number] cc: Avni Elias MD; Shirley Oliveros Reason for Exam: weakness EXAMINATION: XR CHEST CLINICAL INFORMATION: weakness COMPARISON: August 03, 2022 TECHNIQUE: 2 views of the chest were obtained. FINDINGS: No significant abnormality is noted involving the heart, lungs, mediastinum, bony thorax or soft tissues. XR/XR chest 2V IMPRESSION: No acute disease Electronically signed by: Dwight Galvan MD 12/12/2024 02:56 PM EDT RP Dictated By: Dwight Galvan MD Signed By: <Electronically signed by Dwight Galvan MD in OV> 12/12/24 1456 DD/ 1445 TD/TT: 12/12/24 1450 Mud Plant Operator: [facility] External Provider IMG XR PROCEDURES Final Result * TSH W/Reflex to FT4 (09/28/2024 8:35 AM EDT) TSH reflex Free T4 0.94 0.32 - 4.0 uIU/mL [facility] Blood Venous blood specimen / Unknown 09/28/2024 8:35 AM EDT 09/28/2024 11:13 AM EDT Avni íDaz MD LAB BLOOD ORDERABL ES Final Result Performing Organization Address [facility] Co de Phone Number [facility] [address] [place] [phone] * (ABNORMAL) Hemoglobin A1c (09/28/2024 8:35 AM EDT) Hemoglobin A1c 6.1(H) <6.0 % [facility] Comment:Hemoglobin A1C Refer ence Range Adults: 4.8 - 6.0 % Non diabetic: < 6.0 % Goal: < 7.0 %Additional Action Suggested: > 8.0 %Note: Hemoglobin A1c results are invalid for patients with abnormal amounts of HbF. Blood transfusions may impact the HbA1c concentration in the patient sample. Estimated Average Glucose 128 mg/dL [facility] Comment:eAG = Estimated ave rage glucose which is %A1C expressed asaverage glucose, using the formula of the Y4Q-OqyxozmUtywhmz Glucose study (ADAG), Diabetes Care, Vol.31,#8,Oct. 2007 Blood Venous blood specimen / Unknown 09/28/2024 8:35 AM EDT 09/28/2024 11:13 AM EDT Avni Díaz MD LAB BLOOD ORDERABL ES Final Result Performing Organization Address [facility]/ZIP Co de Phone Number [facility] [address] [place] [phone] * Lipid Panel, Standard (09/28/2024 8:35 AM EDT) Triglycerides 62 <150 mg/dL [facility] Comment:Desirable Triglyceri de: less than 150 mg/dLBorderline High Triglyceride 150-199 mg/dLHigh Triglyceride: 200-499 mg/dLVery High Triglyceride: greater than or equal to 5OO mg/dL Cholesterol 116 <200 mg/dL [facility] Comment:Desirable Cholestero l: less than 200 mg/dLBorderline High Cholesterol: 200-239 mg/dLHigh Cholesterol: greater than 239 mg/dL LDL Cholesterol Calculated 58 <100 mg/dL [facility] Comment:Desirable LDL: less than 100 mg/dLNear Optimal/Above Optimal LDL: 110- 129 mg/dLBorderline High LDL: 130-159 mg/dLHigh LDL: 160-189 mg/dLVery High LDL: greater than or equal to 190 mg/dL HDL Cholesterol 46 >40 mg/dL [facility] Comment:Desirable HDL: great er than 40 mg/dL Note: This HDL assay may give artificially low results in patients with liver disease. Blood Venous blood specimen / Unknown 09/28/2024 8:35 AM EDT 09/28/2024 11:13 AM EDT us Avni Díaz MD LAB BLOOD ORDERABL ES Final Result [facility] [address] [place] [phone] * Hepatitis Panel, General (11/28/2022 10:21 AM EDT) Hepatitis A IgM Nonreactive Nonreactive [facility] Comment:IgM antibodies to GAGE V not detected; does not exclude earlyacute or recovered HAV infection. ~Hepatitis B Surface Antibody REACTIVE Nonreactive [facility] Comment:REACTIVE: > 11.99 mI U/mL Hepatitis B Core Antibody Nonreactive Nonreactive [facility] Hepatitis C Antibody Nonreactive Nonreactive [facility] Comment:Antibodies to HCV no t detected; does not exclude early acuteHCV infection. Hepatitis B Surface Ag Negative Negative [facility] Blood 11/28/2022 10:2 1 AM EDT 11/28/2022 2:58 PM EDT Avni Díaz MD LAB BLOOD ORDERABL ES Final Result Performing Organization Address [facility]/ZIP Co de Phone Number [facility] [address] [place] [phone] * HIV 1/2 ANTIGEN/ANTIBODY,FOURTH GENERATION W/RFL (01/12/2020 9:36 AM EDT) HIV-1/2 ANTIGEN AND ANTIBODIES, 4TH GENERATION W/ REFLEX NON-REACT SANCHEZ NON-REACT SANCHEZ [facility] Comment: HIV-1 antigen and HIV-1/HIV-2 antibodies were not detected. There is no laboratory evidence of HIV infection. PLEASE NOTE: This information has been disclosed to you from records whose confidentiality may be protected by state law. If your state requires such protection, then the state law prohibits you from making any further disclosure of the information without the specific written consent of the person to whom it pertains, or as otherwise permitted by law. A general authorization for the release of medical or other information is NOT sufficient for this purpose. For additional information please refer to http://education.[employer].Go800/faq/MUX848 (This link is being provided for informational/ educational purposes only.) The performance of this assay has not been clinically validated in patients less than 2 years old. 01/12/2020 9:36 AM EDT Avni Díaz MD LAB BLOOD ORDERABL ES Final Result Performing Organization Address City/[facility]/ZIP Co de Phone Number [facility] [address] from Last 3 Months or Most Recently Relevant to Health Maintenance Insurance [facility] [address] [place] [address] [address] [place] [address] Care Teams Grinder Set Up Operator Thread Relationship Specialty Start Date End Date Avni Elias MD [address] [place] [phone] PCP - General Internal Medicine 08/11/19
--- OUTSIDE RECORDS SUMMARY | 2024-12-12 18:33 | XMS_ITS | Encounter Summary ---
Author Organization [employer] Address [address] [facility] 7t [place] [address] Care Team Providers Care Loading Machine Tool Setter Name Role Phone Avni Elias MD Primary Care Prov ider Encounter Details Date Type Department Care Team ([facility] st Contact Info) Description 06/09/2023 Orders Only [facility]S [address] [place], [place] [phone] Gil Moore MD [address] [place] [address] Social History Tobacco Use Types Packs/Day Years [...] documented as of this encounter Care Teams Loading Machine Tool Setter Relationship Specialty Start Date End Date Avni Elias MD [address] [place] [phone] PCP - General Internal Medicine 08/11/19 documented as of this encounter
--- OUTSIDE RECORDS SUMMARY | 2024-12-12 18:33 | XMS_ITS | Encounter Summary ---
Author Organization [employer] Address [address] [facility] 7t [place] [address] Care Team Providers Care Architectural Manager Name Role Phone Avni Elias MD Primary Care Prov ider Encounter Details Date Type Department Care Team (Late st Contact Info) Description 12/12/2024 Orders Only [facility] External Provider, [facility] Social History Tobacco Use Types Packs/Day Years [...] on file documented as of this encounter Procedures Procedure Name Priority Date/Time Associated Diagnosis Comments INFLUENZA A B2 ID NOW ([facility]) Routine 12/12/2024 4:11 PM EDT COVID-19 ID NOW ([facility]) Routine 12/12/2024 4:11 PM EDT HIGH SENSITIVITY TROPONIN I Routine 12/12/2024 4:11 PM EDT CBC WITH AUTO DIFFERENTIAL Routine 12/12/2024 4:11 PM EDT URINALYSIS WITH REFLEX MICROSCOPIC Routine 12/12/2024 4:11 PM EDT MAGNESIUM Routine 12/12/2024 4:11 PM EDT COMPREHENSIVE METABOLIC PANEL Routine 12/12/2024 4:11 PM EDT XR CHEST 2 VIEWS Routine 12/12/2024 2:45 PM EDT documented in this encounter Results * COVID-19 ID NOW ([facility]) (12/12/2024 4:11 PM EDT) IDNOW SERIAL# [id number] [facility] COVID-19 TEST Negative Negative [facility] COVID-19 NOTE See Note [facility] Comment: Results are for the identification of SARS-CoV2 RNA. TheSARS-CoV2 RNA is generally detectable in respiratory samplesduring the acute phase of infection. Positive results areindicative of the presence of SARS-CoV-2 RNA; clinicalcorrelation with patient history and other diagnosticinformation is necessary to determine patient infectionstatus. Positive results do not rule out bacterial infectionor co- infection with other viruses.Testing facilities within the [place] and itsterritories are required to report all positive results [...] use by authorized laboratories.Testing performed on the Hernandez ID NOW utilizing NAAT. 12/12/2024 4:11 PM EDT 12/12/2024 4:17 PM EDT us Generic External Data Provider LAB MOLECULAR OLI GNOSTICS ORDERABLES Final Result [facility] [address] [place] [phone] * Influenza A B2 ID NOW (Hernandez) (12/12/2024 4:11 PM EDT) IDNOW SERIAL# [id number] [facility] Influenza A Negative Negative [facility] Influenza B2 Negative Negative [facility] Influenza A B2 Note See Note [facility] Comment:The Hernandez ID NOW In fluenza A B2 test [...] 4:11 PM EDT 12/12/2024 4:17 PM EDT Generic External Data Provider LAB MICROBIOLOGY - GENERAL ORDERABLES Final Result Performing Organization Address [facility] Co de Phone Number [facility] [address] [place] [phone] * High Sensitivity Troponin I (12/12/2024 4:11 PM EDT) [facility] TROPONIN I HIGH SENSITIVITY <2.7 <3.5 - 35.0 ng/L [facility] Comment:The Hernandez high sens itivity Troponin-I results should beused in conjunction with other diagnostic information suchas ECG, clinical observations and information, and patientsymptoms to aid in the diagnosis of [place]. 12/12/2024 4:11 PM EDT 12/12/2024 4:16 PM EDT Generic External Data Provider LAB BLOOD ORDERAB LES Final Result Performing Organization Address [facility] de Phone Number [facility] [address] [place] [phone] * Magnesium (12/12/2024 4:11 PM EDT) [facility] Magnesium 2.3 1.6 - 2.6 mg/dL [facility] 12/12/2024 4:11 PM EDT 12/12/2024 4:16 PM EDT Generic External Data Provider LAB BLOOD ORDERAB LES Final Result Performing Organization Address [facility] Co de Phone Number [facility] [address] [place] [phone] * (ABNORMAL) Comprehensive Metabolic Panel (12/12/2024 4:11 PM EDT) [facility] Sodium 140 135 - 145 mmol/L [facility] Potassium 3.9 3.3 - 5.1 mmol/L [facility] Chloride 109(H) 96 - 108 mmol/L [facility] Carbon Dioxide 23 22 - 29 mmol/L [facility] Anion Gap 12 12 - 20 [facility] Urea Nitrogen (BUN) 17(H) 9 - 16 mg/dL [facility] Creatinine, Serum 0.91 0.5 - 1.4 mg/dL [facility] Creatinine Clr Calc Pharmacy 91.4 [facility] Comment:eGFR (calculated fro m the MDRD study equation) and eCrCl(calculated from the Cockcroft-Gault equation) are based ondifferent parameters and may not yield comparable results.If eCrCl result is absurd, please check patient'sheight/weight. Estimated Glomerular Filt Rate >60 [facility] Comment:Chronic Kidney Disea se: Estimated GFR < 60 mL/min/1.82c2Ajwzge Kidney Disease: Estimated GFR < 15 mL/min/1.73m2 Glucose 125(H) 60 - 115 mg/dL [facility] Calcium 9.1 8.4 - 10.2 mg/dL [facility] Bilirubin, Total 0.3 0.0 - 1.0 mg/dL [facility] Aspartate Amino Transferase 15 5 - 37 U/L [facility] Alanine Aminotransferase <6 0 - 40 U/L [facility] Total Protein 7.7 6.5 - 8.0 g/dL [facility] Albumin Level 4.3 3.5 - 5.0 g/dL [facility] Alkaline Phosphatase 73 39 - 117 U/L [facility] 12/12/2024 4:11 PM EDT 12/12/2024 4:16 PM EDT us Generic External Data Provider LAB BLOOD ORDERAB LES Final Result [facility] [address] [place] [phone] * (ABNORMAL) CBC auto differential (12/12/2024 4:11 PM EDT) White Blood Count 6.9 4.8 - 10.8 X10*3/uL [facility] Red Blood Count 5.00 4.60 - 5.80 X10*6/uL [facility] Hemoglobin 13.6(L) 14.0 - 18.0 g/dl [facility] Hematocrit 40.5(L) 42.0 - 52.0 % [facility] Mean Corpuscular Volume 81.0 80.0 - 98.0 fL [facility] Mean Corpuscular Hemoglobin 27.2 27.0 - 33.0 pg [facility] Mean Corpuscular HGB Conc 33.6 31.0 - 36.0 g/dl [facility] Red Cell Distribution Width 14.5 11.0 - 16.0 % [facility] Platelet Count 292 160 - 400 X10*3/uL [facility] Mean Platelet Volume 9.8 9.4 - 12.4 fL [facility] Neutrophils Percent Auto 69.2 45 - 73 % [facility] Imm Gran Pct Auto 0.3 0.0 - 0.4 % [facility] Lymphocytes Percent Auto 15.3(L) 20 - 40 % [facility] Monocytes Percent Auto 8.2 2 - 11 % [facility] Eosinophils Percent Auto 6.4(H) 0 - 4 % [facility] Basophils Percent Auto 0.6 0 - 2 % [facility] NRBC Pct Auto 0.0 0.0 - 0.2 /100WBC [facility] Neutrophils Absolute Auto 4.8 2.0 - 8.3 x10*3/uL [facility] Imm Gran Abs Auto 0.02 0.00 - 0.03 X10*3/uL [facility] Lymphocytes Absolute Auto 1.1(L) 1.2 - 4.9 X10*3/uL [facility] Monocytes Absolute Auto 0.6 0.1 - 1.2 X10*3/uL [facility] Eosinophils Absolute Auto 0.4 0.0 - 0.4 X10*3/uL [facility] Basophils Absolute Auto 0.0 0.0 - 0.2 X10*3/uL [facility] NRBC Abs Auto 0.000 0.0 - 0.012 X10*3/uL [facility] 12/12/2024 4:11 PM EDT 12/12/2024 4:16 PM EDT Generic External Data Provider LAB BLOOD ORDERAB LES Final Result Performing Organization Address City/[facility]/ZIP Co de Phone Number [facility] [address] [place] [phone] * Urinalysis w/reflex microscopic (12/12/2024 4:11 PM EDT) Color Urine Yellow [facility] Appearance Urine Clear [facility] PH 5.5 5.0 - 9.0 [facility] Glucose Urine UA Negative Negative mg/dL [facility] Urine Blood Negative Negative [facility] Specific [place] - Urine 1.020 1.005 - 1.025 [facility] Urine Protein Negative Neg-Trace mg/dL [facility] Urine Ketones Trace Negative mg/dL [facility] Nitrite Urine Negative Negative [facility] Leukocyte Esterase Urine Negative Negative [facility] 12/12/2024 4:11 PM EDT 12/12/2024 4:16 PM EDT Narrative [facility] - 12/12/2024 4:22 PM EDT [id number], Clean Catch Generic External Data Provider LAB URINE ORDERAB LES Final Result Performing Organization Address City/[facility]/ZIP Co de Phone Number [facility] [address] [place] [phone] * XR Chest 2 Views (12/12/2024 2:45 PM EDT) Anatomical Region Laterality Modality Chest Radiographic Latesha ging 12/12/2024 2:45 PM EDT Narrative 12/12/2024 2:59 PM EDT [address] [address] XRay Report Signed Patient: Jeffry Castañeda MR#: [id number] 2 : 1960 Acct:[id number] Age/Sex: 63 / M ADM Date: 12/12/24 Loc: .ED Attending Dr: Ordering Physician: Shirley Oliveros Date of Service: 12/12/24 Procedure(s): XR chest 2V Accession Number(s): [id number] cc: Avni Elias MD; Shirley Oliveros Reason [...] 12/12/24 1456 DD/ 1445 TD/TT: 12/12/24 1450 Design Engineer Products: Procedure Note Donotuseinterpreter, Image - 12/12/2024 [facility] [address] [place] [phone] XRay Report Signed Patient: Mendoza CastañedaR#: [id number] 2 : 1960cct:[id number] Age/Sex: 63 / MADM Date: 12/12/24 Loc: .ED Attending Dr: Ordering Physician: Shirley Oliveros Date of Service: 12/12/24 Procedure(s): XR chest 2V Accession Number(s): [id number] cc: Avni Elias MD; Shirley Oliveros Reason [...] 12/12/24 1456 DD/ 1445 TD/TT: 12/12/24 1450 Design Engineer Products: [facility] External Provider IMG XR PROCEDURES Final Result documented in this encounter Visit Diagnoses Not on filedocumented in this encounter Additional Health Concerns Assessment Noted Time PHQ-9 Depression Total Score: 2 09/08/19 25 10:21 AM EDT documented as of this encounter Care Teams Architectural Manager Relationship Specialty Start Date End Date GuerrierAvni Pan MD [address] [place] [phone] PCP - General Internal Medicine 08/11/19 documented as of this encounter
--- OUTSIDE RECORDS SUMMARY | 2024-12-12 18:33 | XMS_ITS | Encounter Summary ---
Author Organization [employer] Address [address] [facility] 7 [place] [address] Care Team Providers Care Netezza Developer Name Role Phone Avni Elias MD Primary Care Prov ider Reason for Visit * Reason Onset Date Comments Referral 02/22/2024 Encounter Details Date Type Department Care Team ([facility] st Contact Info) Description 02/22/2024 Telephone [facility] MEDICINE [address] [place] [address] Avni Elias MD [address] [place] [address] Referral Social History Tobacco Use Types Packs/Day Years [...] * Telephone Encounter - Roscoe Whipple - 02/22/2024 10:25 AM EST Tc from pt requesting a referral for [facility] Vision center. If any questions you can contact pt at [phone]. documented in this encounter Plan of Treatment Not on file documented as of this encounter Visit Diagnoses Not on filedocumented in this encounter Additional Health Concerns Assessment Noted Time PHQ-9 Depression Total Score: 2 06/05/19 23 3:24 PM EDT documented as of this encounter Care Teams Netezza Developer Relationship Specialty Start Date End Date Avni Elias MD [address] [place] [phone] PCP - General Internal Medicine 08/11/19 documented as of this encounter
--- OUTSIDE RECORDS SUMMARY | 2024-12-12 18:33 | XMS_ITS | Encounter Summary ---
Author Organization [employer] Address [address] [facility] 7 [place] [address] Care Team Providers Care Child Care Centre Director Name Role Phone Avni Elias MD Primary Care Prov ider Reason for Visit * Reason Onset Date Comments Nurse Triage 04/13/2023 Encounter Details Date Type Department Care Team ([facility] st Contact Info) Description 04/13/2023 Telephone [facility] [address] [place] [address] Avni Elias MD [address] [place] [address] Nurse Triage Social History Tobacco Use Types Packs/Day Years [...] encounter Miscellaneous Notes * Telephone Encounter - Katie Chavez RN - 04/13/2023 1:30 PM EST Call to Jeffry Castañeda, reports having cough x 1 week. Per pt had sputum at the beginning. Pt having rhonchi and wheezing. No homekit for COVID-19. Per pt using inhaler BID. PT using OTC Vicks Coughmedications. Pt alert, speaking in clear full sentences. Pt agrees to [facility] tomorrow. Declines [facility] same day. Reviewed home care advise and reasons to call back. Protocol Used: Cough (Adult) Protocol-Based Disposition: See in Office or Video Visit Today or Tomorrow Future Appointments Date Time Provider Department Center 04/14/2023 9:00 AM [facility] Video visit offer not recorded Positive Triage Question: * Continuous (nonstop) coughing interferes with work or school and no improvement using cough treatment per Care Advice * All higher-acuity triage questions were negative Care Advice Discussed: * Cough Medicines * Coughing Spells * Prevent Dehydration * Humidifier * Reasons To Call Back - Difficulty breathing - You become worse * Telephone Encounter - Berta Mcqueen - 04/13/2023 1:20 PM EST Symptom: Cough Outcome: Schedule an urgent appointment (within 1 hour) or talk to a nurse or provider soon Reason: Wheezing The caller accepted this outcome documented in this encounter Plan of Treatment Not on file documented as of this encounter Visit Diagnoses Not on filedocumented in this encounter Additional Health Concerns Assessment Noted Time PHQ-9 Depression Total Score: 2 06/05/19 23 3:24 PM EDT documented as of this encounter Care Teams Child Care Centre Director Relationship Specialty Start Date End Date Avni Elias MD [address] [place] [phone] PCP - General Internal Medicine 08/11/19 documented as of this encounter
[2024-12-12 18:37] VITALS: BP 113/73; PULSE 98; RESP 18; TEMP 37.1; O2SAT 96
--- NOTE | 2024-12-13 17:54 | MHC.CM.ED ---
CM called patient's sister, Dalila Colin at the request of Dr. Patel regarding medications concerns. Dalila called [facility] yesterday and the [facility] RN did a site visit today. Dalila had concerns that her brother was overmedicated. She call his neurologist, who decreased one of his medications d/t oversedation. She also made a neurology appointment to review her brother's medications. Dalila tells THEE she was very happy with her brothers care in the ED and she has no further concerns that could assist with.
== END 2024-12-12 18:37 | disposition home or self-care (01) ==
PROVIDERS: Physician Assistant Medical; Emergency Provider Emergency Medicine; PCP Internal Medicine
DX: G20.A1 Parkinson's disease without dyskinesia, without mention of fluctuations (principal); F02.84 Dementia in other diseases classified elsewhere, unspecified severity, with anxiety; G25.81 Restless legs syndrome; Z79.899 Other long term (current) drug therapy
CPT/HCPCS: 36415; 71046; 80053; 81003; 83735; 84484; 85025; 87502; 87635; 93005; 99283; 99284

== ENCOUNTER → 2024-12-12 14:41 | Outpatient (BNV) | payer OTHER, SELFPAY | PROVIDERS: PCP Internal Medicine; Visit Provider Radiology Diagnostic Radiology | DX: R53.1 Weakness (principal) | CPT/HCPCS: 71046 ==

== ENCOUNTER → 2024-12-12 14:41 | Outpatient (BNV) | payer OTHER, SELFPAY | PROVIDERS: Emergency Provider Emergency Medicine; PCP Internal Medicine; Visit Provider Internal Medicine | DX: R53.1 Weakness (principal) | CPT/HCPCS: 93010 ==

== ENCOUNTER 2025-01-04 10:41 | Outpatient (AMB) | payer OTHER, SELFPAY ==
--- NOTE | 2025-01-04 11:02 | A.OFFVIS_ITS ---
Intake Visit Reasons: er follow up Allergies shellfish derived (SHELLFISH DERIVED) Allergy (Unknown, Verified 12/12/24 14:42) UNKNOWN Seafood Allergy (Severe, Uncoded 11/24/24 11:07) VOMITS, DIFF BREATHING HPI Comments Details: 64-year-old man with Parkinson disease. He was initially seen in 2020 when he reported that he was having problem with his right side for years. He was here with the sister reporting that adding another carbidopa levodopa 50 were 200 in the morning resulted in some side-effects. At the same time he was complaining that different time of the day he was having more symptoms. Lot of time was spent with him in his sister to explain medicines and a written schedule was provided with detail of timing. [facility] Medical History Parkinson's disease REM sleep behavior disorder RLS (restless legs syndrome) Dementia Anxiety disorder Review of Systems Narrative He is feeling generalized weakness and shaking and difficulty walking fluctuating during the daytime. Physical Exam Neuro Other: Mental Status: Alert and oriented to person, place, and time. Normal attention. Normal spontaneous speech, fluency, and comprehension. Cranial Nerves: CN II: Visual marcus full to confrontation, visual acuity intact. CN III, IV, : Pupils equal, round, reactive to light and accommodation. Extraocular movements are normal. CN V: Facial sensation is normal. CN VII: Facial movements symmetrical. CN VIII: Hearing intact to bedside conversation is normal. CN IX, X: Palate elevates symmetrically. CN XI: Shoulder shrug and head turn symmetrical. CN XII: Tongue midline without atrophy or fasciculations. Motor: Bulk and tone normal in all extremities. No significant muscle weakness in arms and legs. No drift. Reflexes: Deep tendon reflexes 2+ and symmetric. Plantar response down-going bilaterally. Coordination: Aapnxj-bj-vuwy and lfoq-kj-pbmc testing normal. No dysmetria. Gait and Station: Slow and cautious with decreased arm swing and constant right hand tremor Extrapyramidal: Decreased facial expression blinking. Moderate generalized bradykinesia. Almost constant right hand resting tremor. Speech: Normal; no dysarthria or tremor. Assessment & Plan Assessment & Plan (1) Parkinson's disease: Code(s): G20 - Parkinson's disease Category: Medical (2) REM sleep behavior disorder: Code(s): G47.52 - REM sleep behavior disorder Category: Medical Plan Impression: 1. Parkinson's disease [id number] 2. REM sleep behavior sleep Recommendations: 1. Reassurance and education. A written schedule was provided for his medications 2. Carbidopa/levodopa 25/100, one, 4 times a day 3. Carbidopa/levodopa 50/200, 1 tablet at bedtime 4. Increase pramipexole to 0.25 mg 1 tab, 3 times a day 5. F/u in a month Medications: New pramipexole 0.25 mg PO TID 90 tabs 1RF Discontinued pramipexole Discontinued Reason: Doctor's Order 0.125 mg PO TID 90 days 270 tabs 0RF Coding Level of Care Code Est Pt Level 4 (24877) Diagnoses Parkinson's disease G20 REM sleep behavior disorder G47.52
--- OUTSIDE RECORDS SUMMARY | 2025-01-04 13:42 | XMS_ITS | Encounter Summary ---
Author Organization [employer] Address [address] [facility] 7t [place] [address] Care Team Providers Care Continuous Process Machine Operator Name Role Phone Avni Elias MD Primary Care Prov ider Reason for Visit * Reason Comments Med Change Request Encounter Details Date Type Department Care Team ([facility] Contact Info) Description 10/16/2023 Refill [facility] [address] [place], [place] [phone] Lynne Lam MD [address] [place] [address] Social History Tobacco Use Types Packs/Day Years [...] Encounters Date Type Department Care Team (Late st Contact Info) Description 01/05/2025 2:45 PM EDT Office Visit [facility] MED & PEDS [address] [place] [address] Avni Elias MD [address] [place] [address] documented as of this encounter Visit Diagnoses Not on filedocumented in this encounter Additional Health Concerns Assessment Noted Time PHQ-9 Depression Total Score: 2 06/05/19 23 3:24 PM EDT documented as of this encounter Care Teams Continuous Process Machine Operator Relationship Specialty Start Date End Date Avni Elias MD [address] [place] [address] PCP - General Internal Medicine 08/11/19 documented as of this encounter
--- OUTSIDE RECORDS SUMMARY | 2025-01-04 13:42 | XMS_ITS | Encounter Summary ---
Author Organization [employer] Address [address] [facility] 7 [place] [address] Care Team Providers Care Supervisor Pumping Station Name Role Phone Avni Elias MD Primary Care Prov ider Reason for Visit * Reason Onset Date Comments Med Refill 08/06/2022 Encounter Details Date Type Department Care Team ([facility] st Contact Info) Description 08/06/2022 Telephone [facility] MEDICINE [address] [place] [address] Avni Elias MD [address] [place] [id number] Med Refill Social History Tobacco Use Types [...] (Ambien) 10 MG tablet Please sent to [facility] - [place], [place] - [address] documented in this encounter Plan of Treatment Upcoming Encounters Date Type Department Care Team (Late st Contact Info) Description 01/05/2025 2:45 PM EDT Office Visit [facility] MED & PEDS [address] [place] [address] Avni Elias MD [address] [place] [address] documented as of this encounter Visit Diagnoses Not on filedocumented in this encounter Additional Health Concerns Assessment Noted Time PHQ-9 Depression Total Score: 2 06/05/19 23 3:24 PM EDT documented as of this encounter Care Teams Supervisor Pumping Station Relationship Specialty Start Date End Date Avni Elias MD [address] [place] [address] PCP - General Internal Medicine 08/11/19 documented as of this encounter
--- OUTSIDE RECORDS SUMMARY | 2025-01-04 13:42 | XMS_ITS | Encounter Summary ---
Author Organization [employer] Address [address] [place] [address] 7 [place] [address] Care Team Providers Care Mattress Stripper Name Role Phone Avni Elias MD Primary Care Prov ider Reason for Visit * Reason Comments Med Refill Encounter Details Date Type Department Care Team (Late Contact Info) Description 05/07/2022 Refill [facility] MED & PEDS [address] [place], [place] [phone] Avni Elias MD [address] [place], [place] [phone] Primary insomnia Social History Tobacco Use Types [...] Department Care Team (Late Contact Info) Description 01/05/2025 2:45 PM EDT Office Visit [facility] MED & PEDS [address] [place], [place] [phone] Avni Elias MD [address] [place], [place] [phone] documented as of this encounter Visit Diagnoses Diagnosis Primary insomnia Persistent disorder of initiating or maintaining sleep documented in this encounter Care Teams Mattress Stripper Relationship Specialty Start Date End Date Avni Elias MD [address] [place] [address] PCP - General Internal Medicine 08/11/19 documented as of this encounter
--- OUTSIDE RECORDS SUMMARY | 2025-01-04 13:42 | XMS_ITS | Encounter Summary ---
Author Organization [employer] Address [address] [place] [address] 7t [place] [address] Care Team Providers Care Healthcare Manager Name Role Phone Avni Elias MD Primary Care Prov ider Encounter Details Date Type Department Care Team ([facility] Contact Info) Description 06/06/2022 Abstract [facility] MED & PEDS [address] [place], [place] [phone] Avni Elias MD [address] [place] [address] Social History Tobacco Use Types Packs/Day Years [...] Upcoming Encounters Date Type Department Care Team ([facility] [address] Contact Info) Description 01/05/2025 2:45 PM EDT Office Visit [facility] MED & PEDS [address] [place] [address] Avni Elias MD [address] [place] [address] documented as of this encounter Visit Diagnoses Not on filedocumented in this encounter Additional Health Concerns Assessment Noted Time PHQ-9 Depression Total Score: 2 06/05/19 23 3:24 PM EDT documented as of this encounter Care Teams Healthcare Manager Relationship Specialty Start Date End Date Avni Elias MD [address] [place] [address] PCP - General Internal Medicine 08/11/19 documented as of this encounter
--- OUTSIDE RECORDS SUMMARY | 2025-01-04 13:42 | XMS_ITS | Encounter Summary ---
Author Organization [employer] Address [address] [facility] 7 [place] [address] Care Team Providers Care Director Of Vital Statistics Name Role Phone Avni Elias MD Primary Care Prov ider Reason for Visit * Reason Onset Date Comments Med Refill 11/11/2023 Encounter Details Date Type Department Care Team ([facility] st Contact Info) Description 11/11/2023 Telephone [facility] [address] [place] [address] Avni Elias MD [address] [place] [address] Med Refill Social History Tobacco Use Types [...] 10 MG tablet To be sent to: [facility] - [place], [place] - [address] documented in this encounter Plan of Treatment Upcoming Encounters Date Type Department Care Team (Late st Contact Info) Description 01/05/2025 2:45 PM EDT Office Visit [facility] [address] [place], [place] [phone] Avni Elias MD [address] [place] [address] documented as of this encounter Visit Diagnoses Not on filedocumented in this encounter Additional Health Concerns Assessment Noted Time PHQ-9 Depression Total Score: 2 06/05/19 23 3:24 PM EDT documented as of this encounter Care Teams Director Of Vital Statistics Relationship Specialty Start Date End Date Avni Elias MD [address] [place] [address] PCP - General Internal Medicine 08/11/19 documented as of this encounter
--- OUTSIDE RECORDS SUMMARY | 2025-01-04 13:43 | XMS_ITS | Encounter Summary ---
Author Organization [employer] Address [address] [facility] 7t [place] [address] Care Team Providers Care Medical Imaging Specialist Name Role Phone Avni Elias MD Primary Care Prov ider Encounter Details Date Type Department Care Team ([facility] st Contact Info) Description 06/09/2023 Orders Only [facility] MED & PEDS [address] [place], [place] [phone] Gil Moore MD [address] [place] [address] Social History Tobacco Use Types Packs/Day Years [...] Description 01/05/2025 2:45 PM EDT Office Visit [facility] MED & PEDS [address] [place] [address] Avni Elias MD [address] [place] [address] documented as of this encounter Visit Diagnoses Not on filedocumented in this encounter Additional Health Concerns Assessment Noted Time PHQ-9 Depression Total Score: 2 06/05/19 23 3:24 PM EDT documented as of this encounter Care Teams Medical Imaging Specialist Relationship Specialty Start Date End Date Avni Elias MD [address] [place] [address] PCP - General Internal Medicine 08/11/19 documented as of this encounter
--- OUTSIDE RECORDS SUMMARY | 2025-01-04 13:43 | XMS_ITS | Encounter Summary ---
Author Organization [employer] Address [address] [facility] 7 [place] [address] Care Team Providers Care Skilled Nursing Professional Name Role Phone Avni Elias MD Primary Care Prov ider Reason for Visit * Reason Comments Med Refill Encounter Details Date Type Department Care Team ([facility] Contact Info) Description 01/04/2025 Refill [facility] [address] [place], [place] [phone] Avni Elias MD [address] [place] [address] Social History Tobacco Use Types Packs/Day Years Used Date Smoking Tobacco: Never Smokeless Tobacco: Never Alcohol Use Standard Drinks/Week Comments Not Currently 0 (1 standard drink = 0.6 oz pur e alcohol) Depression Answer Date Recorded Patient Health Questionnaire-9 Score 9 12/15/2024 Patient Health Questionnaire-9 Score 9 12/15/2024 Last PHQ-9: Questionnaire Data Not on file 1 Housing Stability Answer Date Recorded What is [...] Answer Date Recorded Patient Health Questionnaire-2 Score 6 12/15/2024 Sex and Gender Information Value Date Recorded Sex Assigned at Male 01/13/2022 10:37 AM EDT Legal Sex Male 10:37 AM EDT Gender Identity Male 01/13/2022 10:37 AM EDT Sexual Orientation Straight 12/25/2022 3: 40 PM EDT documented as of this encounter Plan of Treatment Upcoming Encounters Date Type Department Care Team ([facility] st Contact Info) Description 01/05/2025 2:45 PM EDT Office Visit [facility] MED & PEDS [address] [place] [address] Avni Elias MD [address] [place] [address] documented as of this encounter Visit Diagnoses Not on filedocumented in this encounter Additional Health Concerns Assessment Noted Time PHQ-9 Depression Total Score: 9 12/16/19 25 11:22 AM EDT documented as of this encounter Care Teams Skilled Nursing Professional Relationship Specialty Start Date End Date Avni Elias MD [address] [place] [address] PCP - General Internal Medicine 08/11/19 documented as of this encounter
--- OUTSIDE RECORDS SUMMARY | 2025-01-04 13:43 | XMS_ITS | Encounter Summary ---
Author Organization [employer] Address [address] [facility] 7 [place] [address] Care Team Providers Care Sr. Media Manager Name Role Phone Avni Elias MD Primary Care Prov ider Reason for Visit * Reason Onset Date Comments Referral 02/22/2024 Encounter Details Date Type Department Care Team ([facility] st Contact Info) Description 02/22/2024 Telephone [facility] [address] [place] [address] Avni Elias MD [address] [place] [address] Referral Social History Tobacco Use Types Packs/Day [...] encounter Miscellaneous Notes * Telephone Encounter - Roscoeamaury Whipple - 02/22/2024 10:25 AM EST Tc from pt requesting a referral for [facility]. If any questions you can contact pt at [phone]. documented in this encounter Plan of Treatment Upcoming Encounters Date Type Department Care Team (Late st Contact Info) Description 01/05/2025 2:45 PM EDT Office Visit [facility] MED & PEDS [address] [place] [address] Avni Elias MD [address] [place] [address] documented as of this encounter Visit Diagnoses Not on filedocumented in this encounter Additional Health Concerns Assessment Noted Time PHQ-9 Depression Total Score: 2 06/05/19 23 3:24 PM EDT documented as of this encounter Care Teams Sr. Media Manager Relationship Specialty Start Date End Date Avni Elias MD [address] [place] [address] PCP - General Internal Medicine 08/11/19 documented as of this encounter
--- OUTSIDE RECORDS SUMMARY | 2025-01-04 13:43 | XMS_ITS | Encounter Summary ---
Author Organization [employer] Address [address] [facility] 7 [place] [address] Care Team Providers Care Rn Corrections Name Role Phone Avni Elias MD Primary Care Prov ider Reason for Visit * Reason Onset Date Comments Nurse Triage 04/13/2023 Encounter Details Date Type Department Care Team ([facility] st Contact Info) Description 04/13/2023 Telephone [facility] MED & PEDS [address] [place] [address] Avni Elias MD [address] [place] [address] Nurse Triage Social History Tobacco Use Types [...] in clear full sentences. Pt agrees to [facility] tomorrow. Declines [facility] same day. Reviewed home care advise and reasons to call back. Protocol Used: Cough (Adult) Protocol-Based Disposition: See in Office or Video Visit Today or Tomorrow Future Appointments Date Time Provider Department Center 04/14/2023 9:00 AM [facility] SAME DAY CARE [facility] Video visit offer not recorded Positive Triage [...] 2:45 PM EDT Office Visit [facility] MED & PEDS [address] [place] [address] Avni Elias MD [address] [place] [address] documented as of this encounter Visit Diagnoses Not on filedocumented in this encounter Additional Health Concerns Assessment Noted Time PHQ-9 Depression Total Score: 2 06/05/19 23 3:24 PM EDT documented as of this encounter Care Teams Rn Corrections Relationship Specialty Start Date End Date Avni Elias MD [address] [place] [address] PCP - General Internal Medicine 08/11/19 documented as of this encounter
--- OUTSIDE RECORDS SUMMARY | 2025-01-04 13:43 | XMS_ITS | Clinical Summary ---
Author Organization [employer] Address [address] [facility] [address] [place] [address] Care Team Providers Care Equipment Maintenance Supervisor Name Role Phone Avni Elias MD Primary Care Prov ider Allergies Active Allergy Reactions Criticality Noted Date Comments Shellfish Protein-Containing Drug Products 02/02/2020 Medications * This document contains information received from the source organization and may not represent a complete record from that organization. albuterol (2.5 MG/3ML) 0.083% nebulizer solution Take [...] NEEDED FOR PAIN 60 tablet 1 025 Active zolpidem (Ambien) 10 MG tabletIndicatio ns:Primary insomnia TAKE 1 TABLET BY MOUTH EVERY DAY AT BEDTIME 30 tablet Active atorvastatin (Lipitor) 20 MG tablet Take 1 tablet (20 mg) by mouth Once per day. 90 tablet 3 025 2025 Active carbidopa-levod opa CR (Sinemet CR) 50-200 MG ER tablet Take 1 tablet by mouth 2 times daily. Active pramipexole (Mirapex) 0.125 MG tablet Take 1 tablet by mouth 3 times daily. Active sertraline (Zoloft) 25 MG tablet Take 1 tablet by mouth Once per day. Active carbidopa-levod opa (Sinemet) 25-100 MG tablet take 1 tablet by oral route 3 times every day 2024 Discontinued(M ed list cleanup (will not trigger notification to Pharmacy)) pramipexole (Mirapex) 0.5 MG tablet take 1 tablet by oral route 3 times every day 2024 Discontinued(M ed list cleanup (will not trigger notification to Pharmacy)) atorvastatin (Lipitor) 20 MG tablet Take 1 tablet (20 mg) by mouth Once per day. 90 tablet 3 025 2024 Discontinued(R eorder (will not trigger notification to Pharmacy)) zolpidem (Ambien) 10 MG tabletIndicatio ns:Primary insomnia TAKE 1 TABLET BY MOUTH EVERY DAY AT BEDTIME 30 tablet 025 2024 Discontinued(R eorder (will not trigger notification to Pharmacy)) lidocaine-prilo nanci (Emla) 2.5-2.5 % cream Apply topically 1 (one) time for 1 dose. 90 g 3 025 2024 Active Problems Problem Noted Date Diagnosed Date Current mild episode of georgina r depressive disorder without prior episode 12/15/2024 Assessment & Plan (12/15/2024 11:49 AM EDT): Will refer to , follow up in 4-6 weeks, no suicidal/homicidal ideas Obesity, morbid 01/29/2024 Thrombocytopenia 03/12/2023 Assessment & [...] be made, lifestyle medications reinforced Parkinson disease ([facility]) 04/07/2022 Assessment & Plan (01/29/2024 1:59 PM EST): Followed by neurology on mirapex and sinemet, symptoms stable Will send orders for wipes, since he has uncontrolled shaking he can't control his urine and bowel movement therefore he will benefit from the wipes for better hygiene Assessment & Plan (06/06/2022 9:29 AM EDT): Patient disease has been progressing, followed by neurology, patient will need [employer]LE [employer]EMENT [employer]AY[employer] HELPER hours to help him with ADL, [...] organization. Date Type Department Care Team Description 01/04/2025 Refill [facility] [address] [place] [address] Avni Elias MD 12/15/2024 11:30 AM EDT Telemedicine [facility] [address] [place] [address] Avni Elias MD Current mild episode of major depressive disorder without prior episode (CMS/HCC) (Primary Dx); Dietary counseling; Exercise counseling; Parkinson's disease with dyskinesia and fluctuating manifestations (CMS/HCC) (HCC); Obesity, morbid (HCC) 12/15/2024 Travel 12/12/2024 10:30 AM EDT Telemedicine [facility] [address] [place] [address] Avni Elias MD Screening for colon cancer (Primary Dx); Primary hypertension; Mixed hyperlipidemia 12/12/2024 Orders Only [facility] External Provider, [facility] 12/12/2024 Travel 12/09/2024 Refill [facility] [address] [place] [address] Avni Elias MD Primary insomnia 11/20/2024 Refill [facility] [address] [place] [address] Avni Elias MD Left foot pain 11/07/2024 Refill [facility] [address] [place] [address] Avni Elias MD Primary insomnia 10/20/2024 Refill [facility] [address] [place] [address] Avni Elias MD Mild intermittent asthma without complication 10/18/2024 Refill [facility] [address], [place] [phone] Avni Elias MD Left foot pain 10/10/2024 Refill [facility] [address], [place] [phone] Avni Elias MD Primary insomnia from Last [...] 01/29/2024 9:43 AM EST Plan of Treatment Upcoming Encounters Date Type Department Care Team ([facility] st Contact Info) Description 01/05/2025 2:45 PM EDT Office Visit [facility] [address] [place] [address] Avni Elias MD [address], [place] [phone] Health Maintenance Due Date Last Done Comments [...] 2021 SDOH Screening 06/05/2023 06/04/2022 COVID-19 Vaccine ( season) 2024 05/09/2020, 04/11/2020 Influenza Vaccine (#1) 2024 , 12/23/2022, 01/29/2022, Additional history exists Tobacco Screening 01/28/2025 01/29/2024 Depression Monitoring 06/15/2025 12/15/2024, 025 Diabetes: Hemoglobin A1C 09/28/2025 025, 11/28/2021, 01/12/2020 [...] 2 VIEWS Routine 12/12/2024 2:45 PM EDT HEMOGLOBIN A1C Routine 09/28/2024 8:35 AM EDT Obesity, morbid (CMS/HCC) LIPID PANEL, STANDARD Routine 09/28/2024 8:35 AM EDT Obesity, morbid (CMS/HCC) HEPATITIS PANEL, GENERAL Routine 11/28/2022 10:21 AM EDT Primary hypertension HIV 1/2 ANTIGEN/ANTIBODY, FOURTH GENERATION W/RFL Routine 01/12/2020 9:36 AM EDT from Last 3 Months or Most Recently Relevant to Health Maintenance Results * Influenza A B2 ID NOW (Lujan) (12/12/2024 4:11 PM EDT) IDNOW SERIAL# [id number] [facility] Influenza A Negative Negative [facility] Influenza B2 Negative Negative [facility] Influenza A B2 Note See Note [facility] Comment:The Lujan ID NOW In [...] LAB MICROBIOLOGY - GENERAL ORDERABLES Final Result [facility] [address] [place] [phone] * COVID-19 ID NOW (LUJAN) (12/12/2024 4:11 PM EDT) Pathologist [facility] IDNOW SERIAL# [id number] [facility] COVID-19 TEST Negative Negative [facility] COVID-19 NOTE See Note [facility] Comment: Results are for the identification of SARS-CoV2 RNA. TheSARS-CoV2 RNA is generally detectable in respiratory samplesduring the acute phase of infection. Positive results areindicative of the presence of SARS-CoV-2 RNA; clinicalcorrelation with patient history and other diagnosticinformation is necessary to determine patient infectionstatus. Positive results do not rule out bacterial infectionor co- infection with other viruses.Testing facilities within the [facility] and itsterritories are required to report all [...] use by authorized laboratories.Testing performed on the [employer] ID NOW utilizing NAAT. 12/12/2024 4:11 PM EDT 12/12/2024 4:17 PM EDT Generic External Data Provider LAB MOLECULAR OLI GNOSTICS ORDERABLES Final Result Performing Organization Address [facility] de Phone Number [facility] [address] [place] [phone] * High Sensitivity Troponin I (12/12/2024 4:11 PM EDT) [facility] TROPONIN I HIGH SENSITIVITY <2.7 <3.5 - 35.0 ng/L [facility] Comment:The Lujan high sens itivity Troponin-I results should beused in conjunction with other diagnostic information suchas ECG, clinical observations and information, and patientsymptoms to aid in the diagnosis of CO. 12/12/2024 4:11 PM EDT 12/12/2024 4:16 PM EDT Generic External Data Provider LAB BLOOD ORDERAB LES Final Result Performing Organization Address [facility] Co de Phone Number [facility] [address] [place] [address] [phone] * (ABNORMAL) CBC auto differential (12/12/2024 4:11 PM EDT) Pathologist [facility] White Blood Count 6.9 4.8 - 10.8 X10*3/uL [facility] Red Blood Count 5.00 4.60 - 5.80 X10*6/uL [facility] Hemoglobin 13.6(L) 14.0 - 18.0 g/dl [facility] Hematocrit 40.5(L) 42.0 - 52.0 % [facility] Mean Corpuscular Volume 81.0 80.0 - 98.0 fL [facility] Mean Corpuscular Hemoglobin 27.2 27.0 - 33.0 pg [facility] Mean Corpuscular HGB Conc 33.6 31.0 - 36.0 g/dl [facility] Red Cell Distribution Width 14.5 11.0 - 16.0 % [facility] Platelet Count 292 160 - 400 X10*3/uL [facility] Mean Platelet Volume 9.8 9.4 - 12.4 fL [facility] Neutrophils Percent Auto 69.2 45 - 73 % [facility] Imm Gran Pct Auto 0.3 0.0 - 0.4 % [facility] Lymphocytes Percent Auto 15.3(L) 20 - 40 % [facility] Monocytes Percent Auto 8.2 2 - 11 % [facility] Eosinophils Percent Auto 6.4(H) 0 - 4 % [facility] Basophils Percent Auto 0.6 0 - 2 % [facility] NRBC Pct Auto 0.0 0.0 - 0.2 /100WBC [facility] Neutrophils Absolute Auto 4.8 2.0 - 8.3 x10*3/uL [facility] Imm Gran Abs Auto 0.02 0.00 - 0.03 X10*3/uL [facility] Lymphocytes Absolute Auto 1.1(L) 1.2 - 4.9 X10*3/uL [facility] Monocytes Absolute Auto 0.6 0.1 - 1.2 X10*3/uL [facility] Eosinophils Absolute Auto 0.4 0.0 - 0.4 X10*3/uL [facility] Basophils Absolute Auto 0.0 0.0 - 0.2 X10*3/uL [facility] NRBC Abs Auto 0.000 0.0 - 0.012 X10*3/uL [facility] 12/12/2024 4:11 PM EDT 12/12/2024 4:16 PM EDT us Generic External Data Provider LAB BLOOD ORDERAB LES Final Result Performing Organization Address [facility] Co de Phone Number [facility] [address] [place] [phone] * Urinalysis w/reflex microscopic (12/12/2024 4:11 PM EDT) Color Urine Yellow [facility] Appearance Urine Clear [facility] PH 5.5 5.0 - 9.0 [facility] Glucose Urine UA Negative Negative mg/dL [facility] Urine Blood Negative Negative [facility] Specific [place] - Urine 1.020 1.005 - 1.025 [facility] Urine Protein Negative Neg-Trace mg/dL [facility] Urine Ketones Trace Negative mg/dL [facility] Nitrite Urine Negative Negative [facility] Leukocyte Esterase Urine Negative Negative [facility] 12/12/2024 4:11 PM EDT 12/12/2024 4:16 PM EDT Narrative [facility] - 12/12/2024 4:22 PM EDT [id number], Clean Catch us Generic External Data Provider LAB URINE ORDERAB LES Final Result Performing Organization Address [facility] Co de Phone Number [facility] [address] [place] [address] [phone] * Magnesium (12/12/2024 4:11 PM EDT) Magnesium 2.3 1.6 - 2.6 mg/dL [facility] 12/12/2024 4:11 PM EDT 12/12/2024 4:16 PM EDT us Generic External Data Provider LAB BLOOD ORDERAB LES Final Result [facility] [address], [place] [phone] * (ABNORMAL) Comprehensive Metabolic Panel (12/12/2024 4:11 PM EDT) Sodium 140 135 - 145 mmol/L [facility] Potassium 3.9 3.3 - 5.1 mmol/L [facility] Chloride 109(H) 96 - 108 mmol/L [facility] Carbon Dioxide 23 22 - 29 mmol/L [facility] Anion Gap 12 12 - 20 [facility] Urea Nitrogen (BUN) 17(H) 9 - 16 mg/dL [facility] Creatinine, Serum 0.91 0.5 - 1.4 mg/dL [facility] Creatinine Clr Calc Pharmacy 91.4 [facility] Comment:eGFR (calculated fro m the MDRD study equation) and eCrCl(calculated from the Cockcroft-Gault equation) are based ondifferent parameters and may not yield comparable results.If eCrCl result is absurd, please check patient'sheight/weight. Estimated Glomerular Filt Rate >60 [facility] Comment:Chronic Kidney Disea se: Estimated GFR < 60 mL/min/[id number] Kidney Disease: Estimated GFR < 15 mL/min/1.73m2 Glucose 125(H) 60 - 115 mg/dL [facility] Calcium 9.1 8.4 - 10.2 mg/dL [facility] Bilirubin, Total 0.3 0.0 - 1.0 mg/dL [facility] Aspartate Amino Transferase 15 5 - 37 U/L [facility] Alanine Aminotransferase <6 0 - 40 U/L [facility] Total Protein 7.7 6.5 - 8.0 g/dL [facility] Albumin Level 4.3 3.5 - 5.0 g/dL [facility] Alkaline Phosphatase 73 39 - 117 U/L [facility] 12/12/2024 4:11 PM EDT 12/12/2024 4:16 PM EDT us Generic External Data Provider LAB BLOOD ORDERAB LES Final Result [facility] [address] [place] [phone] * XR Chest 2 Views (12/12/2024 2:45 PM EDT) Anatomical Region Laterality Modality Chest Radiographic Latesha ging 12/12/2024 2:45 PM EDT Narrative 12/12/2024 2:59 PM EDT [address] [address] XRay Report Signed Patient: Jeffry Castañeda MR#: [id number] 2 : 1960 Acct:[id number] Age/Sex: 63 / M ADM Date: 12/12/24 Loc: .ED Attending Dr: Ordering Physician: Shirley Oliveros Date of Service: 12/12/24 Procedure(s): XR chest 2V Accession Number(s): [id number] cc: Avni Elias MD; Shirley Oliveros Reason for Exam: weakness EXAMINATION: XR CHEST CLINICAL INFORMATION: weakness COMPARISON: August 03, 2022 TECHNIQUE: 2 views of the chest were obtained. FINDINGS: No significant abnormality is noted involving the heart, lungs, mediastinum, bony thorax or soft tissues. XR/XR chest 2V IMPRESSION: No acute disease Electronically signed by: Dwight Galvan MD 12/12/2024 02:56 PM EDT Dictated By: Dwight Galvan MD Signed By: <Electronically signed by Dwight Galvan MD in OV> 12/12/24 1456 DD/ 1445 TD/TT: 12/12/24 1450 Fence Making Machine Operator: Procedure Note Donotuseinterpreter, Image - 12/12/[address] [address] XRay Report Signed Patient: Mendoza CastañedaR#: [id number] 2 : 2Acct:[id number] Age/Sex: 63 / MADM Date: 12/12/24 Loc: HO.ED Attending Dr: Ordering Physician: Shirley Oliveros Date of Service: 12/12/24 Procedure(s): XR chest 2V Accession Number(s): [id number] cc: Avni Elias MD; Shirley Oliveros Reason [...] 12/12/24 1456 DD/ 1445 TD/TT: 12/12/24 1450 Fence Making Machine Operator: [facility] External Provider IMG XR PROCEDURES Final Result * (ABNORMAL) Hemoglobin A1c (09/28/2024 8:35 AM EDT) Hemoglobin A1c 6.1(H) <6.0 % [facility] Comment:Hemoglobin A1C Refer ence Range Adults: 4.8 - 6.0 % Non diabetic: < 6.0 % Goal: < 7.0 %Additional Action Suggested: > 8.0 %Note: Hemoglobin A1c results are invalid for patients with abnormal amounts of HbF. Blood transfusions may impact the HbA1c concentration in the patient sample. Estimated Average Glucose 128 mg/dL [facility] Comment:eAG = Estimated ave rage glucose which is %A1C expressed asaverage glucose, using the formula of the N9Y-DyilauqFigtyan Glucose study (ADAG), Diabetes Care, Vol.31,#8,Oct. 2007 Blood Venous blood specimen / Unknown 09/28/2024 8:35 AM EDT 09/28/2024 11:13 AM EDT us Avni Díaz MD LAB BLOOD ORDERABL ES Final Result Performing Organization Address [facility] Co de Phone Number [facility] [address] [place] [phone] * Lipid Panel, Standard (09/28/2024 8:35 AM EDT) Triglycerides 62 <150 mg/dL [facility] Comment:Desirable Triglyceri de: less than 150 mg/dLBorderline High Triglyceride 150-199 mg/dLHigh Triglyceride: 200-499 mg/dLVery High Triglyceride: greater than or equal to 5OO mg/dL Cholesterol 116 <200 mg/dL [facility] Comment:Desirable Cholestero l: less than 200 mg/dLBorderline High Cholesterol: 200-239 mg/dLHigh Cholesterol: greater than 239 mg/dL LDL Cholesterol Calculated 58 <100 mg/dL [facility] Comment:Desirable LDL: less than 100 mg/dLNear Optimal/Above Optimal LDL: 110- 129 mg/dLBorderline High LDL: 130-159 mg/dLHigh LDL: 160-189 mg/dLVery High LDL: greater than or equal to 190 mg/dL HDL Cholesterol 46 >40 mg/dL [facility] Comment:Desirable HDL: great er than 40 mg/dL Note: This HDL assay may give artificially low results in patients with liver disease. Blood Venous blood specimen / Unknown 09/28/2024 8:35 AM EDT 09/28/2024 11:13 AM EDT us Avni Díaz MD LAB BLOOD ORDERABL ES Final Result Performing Organization Address [facility] Co de Phone Number [facility] [address] [place] [phone] * Hepatitis Panel, General (11/28/2022 10:21 AM EDT) Hepatitis A IgM Nonreactive Nonreactive [facility] Comment:IgM antibodies to GAGE V not detected; does not exclude earlyacute or recovered HAV infection. ~Hepatitis B Surface Antibody REACTIVE Nonreactive [facility] Comment:REACTIVE: > 11.99 mI U/mL Hepatitis B Core Antibody Nonreactive Nonreactive [facility] Hepatitis C Antibody Nonreactive Nonreactive [facility] Comment:Antibodies to HCV no t detected; does not exclude early acuteHCV infection. Hepatitis B Surface Ag Negative Negative [facility] Blood 11/28/2022 10:2 1 AM EDT 11/28/2022 2:58 PM EDT Avni Díaz MD LAB BLOOD ORDERABL ES Final Result Performing Organization Address [facility] Co de Phone Number [facility] [address] [place] [phone] * HIV 1/2 ANTIGEN/ANTIBODY,FOURTH GENERATION W/RFL (01/12/2020 9:36 AM EDT) [facility] HIV-1/2 ANTIGEN AND ANTIBODIES, 4TH GENERATION W/ REFLEX NON-REACT SANCHEZ NON-REACT SANCHEZ [facility] Comment: HIV-1 antigen and HIV-1/HIV-2 [...] purpose. For additional information please refer to http://education.Shoptagr.SD Motiongraphiks/faq/RRB554 (This link is being provided for informational/ educational purposes only.) The performance of this assay has not been clinically validated in patients less than 2 years old. 01/12/2020 9:36 AM EDT Avni Díaz MD LAB BLOOD ORDERABL ES Final Result Performing Organization Address City/[facility]/ZIP Co de Phone Number [facility] [address] [place] [address], from Last 3 Months or Most Recently Relevant to Health Maintenance Insurance , [place] [facility] CARE < [address] [facility] [place] Care Teams Equipment Maintenance Supervisor Relationship Specialty Start Date End Date Avni Elias MD [address] [place] [phone] PCP - General Internal Medicine 08/11/19
== END 2025-01-04 11:19 | disposition home or self-care (01) ==
LOC: HO.HSM 10:42
PROVIDERS: PCP Internal Medicine; Visit Provider Psychiatry & Neurology Neurology
DX: G20.B1 Parkinson's disease with dyskinesia, without mention of fluctuations (principal); G47.52 REM sleep behavior disorder
CPT/HCPCS: 99214

== ENCOUNTER → 2025-01-04 10:41 | Outpatient (BNVA) | payer OTHER, SELFPAY | PROVIDERS: PCP Internal Medicine; Visit Provider Psychiatry & Neurology Neurology | DX: G20.B1 Parkinson's disease with dyskinesia, without mention of fluctuations (principal); G47.52 REM sleep behavior disorder | CPT/HCPCS: 99212 ==

== ENCOUNTER 2025-01-20 10:49 | Outpatient (AMB) | payer OTHER, MEDICAID, SELFPAY ==
--- NOTE | 2025-01-20 11:02 | MHC.OFFVIS ---
Intake Visit Reasons: 2m pd Accompanied by: Sister Allergies shellfish derived (SHELLFISH DERIVED) Allergy (Unknown, Verified 01/20/25 11:09) UNKNOWN Seafood Allergy (Severe, Uncoded 01/20/25 11:09) VOMITS, DIFF BREATHING Medication List - Last Reconciled 01/20/25 by Shellie Feng CNP albuterol sulfate 90 mcg/actuation (Ventolin HFA) inhalation amlodipine 5 mg PO QAM atorvastatin 20 mg PO DAILY azithromycin (Zithromax) 250 mg PO DAILY benzonatate 100 mg PO BID PRN carbidopa-levodopa 25-100 mg 1 tab PO QID 90 days carbidopa-levodopa 50-200 mg ER 1 tab PO BEDTIME 90 days diclofenac potassium 50 mg PO TID PRN diclofenac sodium 1% 2 grams topical TID pramipexole 0.25 mg PO TID zolpidem 10 mg PO BEDTIME HPI Comments Details: 64-year-old man with Parkinson disease. He was initially seen in 2020 when he reported that he was having problem with his right side for years. He was here with his two sisters. He did not like how he felt with increased dose of pramipexole, which he had trouble describing with vague symptoms of possibly increased drowsiness and weakness, and was asking if dose could be reduced. He was taking carbidopa-levodopa 25-100mg three times a day, as he was forgetting to take nighttime dose. He was taking carbidopa-levodopa 50-200mg ER at bedtime. He had side effects when additional dose of carbidopa-levodopa ER was tried in the morning. He was still having almost constant tremor to right hand, but felt that he was walking better. He was using walker at home, no falls. Sleep was up and down. [facility] Medical History Parkinson's disease REM sleep behavior disorder RLS (restless legs syndrome) Dementia Anxiety disorder Review of Systems Const Denies chills, Denies daytime sleepiness, Reports difficulty sleeping, Denies fatigue, Denies fever(s), Denies frequent falls, Denies headache(s), Denies increased appetite, Denies poor appetite, Denies snoring, Reports weakness, Denies weight gain and Denies weight loss Eyes Denies loss of vision ENT Denies vertigo, Reports dizziness and Denies headache(s) Card Denies chest pain at rest, Denies chest pain with activity, Denies syncope, Denies leg edema and Denies palpitations Resp Denies snoring GI Reports constipation, Denies heartburn, Denies diarrhea and Denies nausea Denies urinary frequency, Denies urinary incontinence and Denies urinary urgency Musc Reports abnormal gait (balance difficulty), Denies numbness and Denies tingling Skin/Breast Denies dry skin and Denies rash Neuro Reports abnormal gait (balance difficulty), Denies vertigo, Reports dizziness, Denies syncope, Denies frequent falls, Denies headache(s), Denies lack of coordination, Denies loss of vision, Denies memory loss, Denies numbness, Denies restless legs, Denies seizure-like activity, Denies tingling, Denies paresthesias, Reports tremor(s) and Reports weakness Psych Denies anxiety, Denies depression, Denies auditory hallucinations, Denies memory loss, Denies visual hallucinations and Denies suicidal ideation Endo Denies fatigue and Denies palpitations Physical Exam Neuro Other: Mental Status: Alert and oriented to person, place, and time. Normal attention. Normal spontaneous speech, fluency, and comprehension. Cranial Nerves: CN II: Visual marcus full to confrontation, visual acuity intact. CN III, IV, : Pupils equal, round, reactive to light and accommodation. Extraocular movements are normal. CN V: Facial sensation is normal. CN VII: Facial movements symmetrical. CN VIII: Hearing intact to bedside conversation is normal. CN IX, X: Palate elevates symmetrically. CN XI: Shoulder shrug and head turn symmetrical. CN XII: Tongue midline without atrophy or fasciculations. Motor: Bulk and tone normal in all extremities. No significant muscle weakness in arms and legs. No drift. Reflexes: Deep tendon reflexes 2+ and symmetric. Plantar response down-going bilaterally. Coordination: Ijlauu-sy-ybil is okay. Gait and Station: Slow and cautious with decreased arm swing and constant right hand tremor Extrapyramidal: Decreased facial expression blinking. Moderate generalized bradykinesia. Almost constant right hand resting tremor. Speech: Normal; no dysarthria or tremor. Assessment & Plan Assessment & Plan (1) Parkinson's disease: Code(s): G20 - Parkinson's disease Category: Medical Plan: Parkinson's disease [id number] He has been taking carbidopa-levodopa 25-100mg three times a day as he was forgetting to take fourth dose at 7pm - frequency and administration times reviewed, strategies to improve compliance reviewed. He did not like how he felt with pramipexole 0.25mg 1 tablet three times a day and was asking to go back to previous dose - dose reduced. Continue carbidopa-levodopa 25-100mg 1 tablet four times a day (at 7am, 11am, 3pm, and 7pm). Continue carbidopa-levodopa 50-200mg ER 1 tablet at bedtime. Decrease pramipexole 0.125mg 1 tablet three times a day (at 7am, 11am, 3pm). Follow up 4-6 weeks, or sooner as needed. (2) REM sleep behavior disorder: Code(s): G47.52 - REM sleep behavior disorder Category: Medical Plan Meds tried: Carbidopa/levodopa, Carbidopa/levodopa ER, pramipaxole, amantadine, sertraline, benztropine Medications: New pramipexole 0.125 mg PO TID 270 tabs 1RF 90 days Discontinued pramipexole Discontinued Reason: Doctor's Order 0.25 mg PO TID 90 tabs 1RF Coding Level of Care Code Est Pt Level 4 (72883) Diagnoses Parkinson's disease G20 REM sleep behavior disorder G47.52
--- OUTSIDE RECORDS SUMMARY | 2025-01-20 12:51 | XMS_ITS | Encounter Summary ---
Author Organization [employer] Address [address] [facility] 7 [place] [address] Care Team Providers Care Vest Finisher Name Role Phone Avni Elias MD Primary Care Prov ider Reason for Visit * Reason Onset Date Comments Med Refill 08/06/2022 Encounter Details Date Type Department Care Team ([facility] st Contact Info) Description 08/06/2022 Telephone [facility] MEDICINE [address] [place] [address] Avni Elias MD [address] [place] [phone] Med Refill Social History Tobacco Use Types [...] (Ambien) 10 MG tablet Please sent to [facility] - [place], [place] - [address] documented in this encounter Plan of Treatment Not on file documented as of this encounter Visit Diagnoses Not on filedocumented in this encounter Additional Health Concerns Assessment Noted Time PHQ-9 Depression Total Score: 2 06/05/19 23 3:24 PM EDT documented as of this encounter Care Teams Vest Finisher Relationship Specialty Start Date End Date Avni Elias MD [address] [place] [id number] PCP - General Internal Medicine 08/11/19 documented as of this encounter
--- OUTSIDE RECORDS SUMMARY | 2025-01-20 12:51 | XMS_ITS | Encounter Summary ---
Author Organization [employer] Address [address] [facility] 7t [place] [address] Care Team Providers Care School Psychologist Assistant Name Role Phone Avni Elias MD Primary Care Prov ider Reason for Visit * Reason Comments Med Change Request Encounter Details Date Type Department Care Team ([facility] Contact Info) Description 10/16/2023 Refill [facility] [address] [place], [place] [phone] Lynne Lam MD [address] [place] [address] Social History Tobacco Use Types Packs/Day Years [...] documented as of this encounter Care Teams School Psychologist Assistant Relationship Specialty Start Date End Date Avni Elias MD [address] [place] [phone] PCP - General Internal Medicine 08/11/19 documented as of this encounter
--- OUTSIDE RECORDS SUMMARY | 2025-01-20 12:51 | XMS_ITS | Encounter Summary ---
Author Organization [employer] Address [address] [place] [address] [address] [place] [address] Care Team Providers Care Software Engineer Web Services Name Role Phone Avni Elias MD Primary Care Prov ider Reason for Visit * Reason Comments Med Refill Encounter Details Date Type Department Care Team ([facility] st Contact Info) Description 05/07/2022 Refill [facility] [address] [place] [address] Avni Elias MD [address] [place] [address] Primary insomnia Social History Tobacco Use Types [...] sleep documented in this encounter Care Teams Software Engineer Web Services Relationship Specialty Start Date End Date Avni Elias MD [address] [place] [address] PCP - General Internal Medicine 08/11/19 documented as of this encounter
--- OUTSIDE RECORDS SUMMARY | 2025-01-20 12:51 | XMS_ITS | Encounter Summary ---
Author Organization [employer] Address [address] [facility] 7 [place] [address] Care Team Providers Care Eligibility Consultant Name Role Phone Avni Elias MD Primary Care Prov ider Reason for Visit * Reason Comments Med Refill Encounter Details Date Type Department Care Team ([facility] st Contact Info) Description 01/15/2025 Refill [facility] [address] [place], [place] [phone] Avni Elias MD [address] [place] [address] Mild intermittent asthma without complication Social History Tobacco Use Types Packs/Day Years [...] as of this encounter Visit Diagnoses Diagnosis Mild intermittent asthma without complication documented in this encounter Additional Health Concerns Assessment Noted Time PHQ-9 Depression Total Score: 9 12/16/19 25 11:22 AM EDT documented as of this encounter Care Teams Eligibility Consultant Relationship Specialty Start Date End Date Avni Elias MD [address] [place] [phone] PCP - General Internal Medicine 08/11/19 documented as of this encounter
--- OUTSIDE RECORDS SUMMARY | 2025-01-20 12:51 | XMS_ITS | Encounter Summary ---
Author Organization [employer] Address [address] [facility] [address] [place] [address] Care Team Providers Care Liturgical Music Director Name Role Phone Avni Elias MD Primary Care Prov ider Reason for Visit * Reason Onset Date Comments Med Refill 11/11/2023 Encounter Details Date Type Department Care Team ([facility] st Contact Info) Description 11/11/2023 Telephone [facility] MEDICINE [address] [place] [address] Avni Elias MD [address] [place] [address] Med Refill Social History Tobacco Use Types [...] 10 MG tablet To be sent to: [facility] - [place], [place] - [address] [place] [address] documented in this encounter Plan of Treatment Not on file documented as of this encounter Visit Diagnoses Not on filedocumented in this encounter Additional Health Concerns Assessment Noted Time PHQ-9 Depression Total Score: 2 06/05/19 23 3:24 PM EDT documented as of this encounter Care Teams Liturgical Music Director Relationship Specialty Start Date End Date Avni Elias MD [address] [place] [id number] PCP - General Internal Medicine 08/11/19 documented as of this encounter
--- OUTSIDE RECORDS SUMMARY | 2025-01-20 12:51 | XMS_ITS | Encounter Summary ---
Author Organization [employer] Address [address] [facility] 7t [place] [address] Care Team Providers Care Planning Supervisor Name Role Phone Avni Elias MD Primary Care Prov ider Encounter Details Date Type Department Care Team ([facility] st Contact Info) Description 06/06/2022 Abstract [facility]S [address] [place], [place] [phone] Avni Elias MD [address] [place] [address] Social History Tobacco Use Types Packs/Day Years [...] documented as of this encounter Care Teams Planning Supervisor Relationship Specialty Start Date End Date Avni Elias MD [address] [place] [phone] PCP - General Internal Medicine 08/11/19 documented as of this encounter
--- OUTSIDE RECORDS SUMMARY | 2025-01-20 12:51 | XMS_ITS | Encounter Summary ---
Author Organization [employer] Address [address] [facility] 7t [place] [address] Care Team Providers Care Electric Mule Driver Name Role Phone Avni Elias MD Primary Care Prov ider Encounter Details Date Type Department Care Team ([facility] st Contact Info) Description 06/09/2023 Orders Only [facility]S [address] [place], [place] [phone] Gil Moore MD [address] [place] [address] Social History Tobacco Use Types Packs/Day Years [...] documented as of this encounter Care Teams Electric Mule Driver Relationship Specialty Start Date End Date Avni Elias MD [address] [place] [address] PCP - General Internal Medicine 08/11/19 documented as of this encounter
--- OUTSIDE RECORDS SUMMARY | 2025-01-20 12:51 | XMS_ITS | Clinical Summary ---
Author Organization [employer] Address [address] [facility] 7[address] [place] [address] Care Team Providers Care Cardiovascular Operating Room Nurse Name Role Phone Avni Elias MD Primary [...] FOR 10 DAYS 40 tablet 024 Active atorvastatin (Lipitor) 20 MG tablet Take 1 tablet (20 mg) by mouth Once per day. 90 tablet 3 025 2025 Active carbidopa-levod opa CR (Sinemet CR) 50-200 MG ER tablet Take 1 tablet by mouth 2 times daily. 025 Active pramipexole (Mirapex) 0.125 MG tablet Take 1 tablet by mouth 3 times daily. Active sertraline (Zoloft) 25 MG tablet Take 1 tablet by mouth Once per day. Active Diclofenac Sodium 1 % gel APPLY 2 GRAM TOPICALLY AFFECTED AREA(S) THREE TIMES DAILY 200 g 2 Active zolpidem (Ambien) 10 MG tabletIndicatio ns:Primary insomnia TAKE 1 TABLET BY MOUTH AT BEDTIME 30 tablet 025 Active amLODIPine (Norvasc) 5 MG tabletIndicatio ns:Primary hypertension TAKE 1 TABLET BY MOUTH EVERY MORNING 90 tablet 1 025 Active albuterol (Ventolin HFA) 108 (90 Base) MCG/ACT inhalerIndicati ons:Mild intermittent asthma without complication INHALE 2 PUFFS BY MOUTH EVERY 4 TO 6 HOURS NEEDED FOR WHEEZING OR SHORTNESS OF BREATH 18 g 1 025 Active diclofenac (Cataflam) 50 MG tabletIndicatio ns:Left foot pain TAKE 1 TABLET BY MOUTH THREE TIMES DAILY NEEDED FOR PAIN 60 tablet 1 025 Active carbidopa-levod opa (Sinemet) 25-100 MG tablet take 1 tablet by oral route 3 times every day 2024 Discontinued(M ed list cleanup (will not trigger notification to Pharmacy)) pramipexole (Mirapex) 0.5 MG tablet take 1 tablet by oral route 3 times every day 2024 Discontinued(M ed list cleanup (will not trigger notification to Pharmacy)) amLODIPine (Norvasc) 5 MG tabletIndicatio ns:Primary hypertension TAKE 1 TABLET BY MOUTH EVERY DAY IN THE MORNING 90 tablet 1 025 2024 Discontinued Diclofenac Sodium 1 % gel APPLY 2 GRAMS TOPICALLY TO AFFECTED AREA(S) THREE TIMES DAILY 200 g 2 025 2024 Discontinued albuterol (Ventolin HFA) 108 (90 Base) MCG/ACT inhalerIndicati ons:Mild intermittent asthma without complication INHALE 2 PUFFS BY MOUTH EVERY 4 TO 6 HOURS NEEDED FOR WHEEZING OR SHORTNESS OF BREATH 18 g 1 025 2024 Discontinued diclofenac (Cataflam) 50 MG tabletIndicatio ns:Left foot pain TAKE 1 TABLET BY MOUTH THREE TIMES DAILY NEEDED FOR PAIN 60 tablet 1 025 2024 Discontinued zolpidem (Ambien) 10 MG tabletIndicatio ns:Primary insomnia TAKE 1 TABLET BY MOUTH EVERY DAY AT BEDTIME 30 tablet 025 2024 Discontinued Active Problems Problem Noted Date Diagnosed Date [...] be made, lifestyle medications reinforced Parkinson disease ([facility]) 04/07/2022 Assessment & Plan (01/29/2024 1:59 PM EST): Followed by neurology on mirapex and sinemet, symptoms stable Will send orders for wipes, since he has uncontrolled shaking he can't control his urine and bowel movement therefore he will benefit from the wipes for better hygiene Assessment & Plan (06/06/2022 9:29 AM EDT): Patient disease has been progressing, followed by neurology, patient will need DOCUMENT MANAGEMENT CONSULTANT hours to help him with ADL, will [...] organization. Date Type Department Care Team Description 01/18/2025 Refill [facility] [address] [place] [address] Mara Jung MD Left foot pain 01/15/2025 Refill [facility] [address] [place] [address] Avni Elias MD Mild intermittent asthma without complication 01/09/2025 Refill [facility] [address] [place] [address] Avni Elias MD Primary hypertension 01/05/2025 Telephone [facility] [address] [place] [address] Avni Elias MD No show 01/05/2025 Refill [facility] [address] [place] [address] Avni Elias MD Primary insomnia 01/04/2025 Telephone [facility] [address] [place] [address] Avni Elias MD chart prep 01/04/2025 Refill [facility] [address] [place] [address] Avni Elias MD 12/15/2024 11:30 AM EDT Telemedicine [facility] [address] [place] [address] Avni Elias MD Current mild episode of major depressive disorder without prior episode (CMS/HCC) (Primary Dx); Dietary counseling; Exercise counseling; Parkinson's disease with dyskinesia and fluctuating manifestations (CMS/HCC) (HCC); Obesity, morbid (HCC) 12/15/2024 Travel 12/12/2024 10:30 AM EDT Telemedicine [facility] [address] [place] [address] Avni Elias MD Screening for colon cancer (Primary Dx); Primary hypertension; Mixed hyperlipidemia 12/12/2024 Orders Only [facility] External Provider, [facility] 12/12/2024 Travel 12/09/2024 Refill [facility] [address] [place] [address] Avni Elias MD Primary insomnia 11/20/2024 Refill [facility] [address] [place] [address] Avni Elias MD Left foot pain 11/07/2024 Refill [facility] [address] [place] [address] Avni Elias MD Primary insomnia 10/20/2024 Refill [facility] [address] [place] [address] Avni Elias MD Mild intermittent asthma without complication from Last 3 Months Immunizations Immunization Administration [...] Done Comments CT Colonography 1960 Colonoscopy 1960 Dental Oral Exam 1960 Dental Prophylaxis 1960 Dental X-Ray: Bitewings 1961 Dental X-Ray: Full Mouth 1961 FIT 1960 Sigmoidoscopy 1960 Disability Screening 1960 Alcohol/Substance [...] Diabetes: Hemoglobin A1C 09/28/2025 025, 11/28/2021, 01/12/2020 FOBT 01/11/2026 01/11/2025 Colorectal Cancer Screening 01/12/2028 FIT DNA/Cologuard 01/12/2028 01/11/2025 Lipid Panel 09/28/2029 09/28/2024, 08/14, 11/28/2022, Additional history exists DTaP/Tdap/Td Vaccines (2 [...] Procedure Name Priority Date/Time Associated Diagnosis Comments LAB COLOGUARD COLON CANCER SCREEN Routine 01/11/2025 10:42 AM EDT Screening for colon cancer COVID-19 ID NOW (LUJAN) Routine 12/12/2024 4:11 [...] Recently Relevant to Health Maintenance Results * Cologuard?? colon cancer screening (01/11/2025 10:42 AM EDT) Pathologist [facility] Cologuard Result Negative Negative 01/17/20 25 12:24 PM [facility] (CLIA #:[id number]) Comment: The Cologuard (TM) test was performed on this specimen. NEGATIVE TEST RESULT. A negative Cologuard result indicates a low likelihood that a colorectal cancer (CRC) or advanced adenoma (adenomatous polyps with more advanced pre-malignant features) is present. The chance that a person with a negative Cologuard test has a colorectal cancer is less than 1 in 1500 (negative predictive value >99.9%) or has an advanced adenoma is less than 5.3% (negative predictive value 94.7%). These data are based on a prospective cross-sectional study of 10,000 individuals at average risk for colorectal cancer who were screened with both Cologuard and colonoscopy. (Evan Hewitt al, N Engl J Med 2014;370(14):1286- 1297) The normal value (reference range) for this assay is negative. COLOGUARD RE-SCREENING RECOMMENDATION: Periodic colorectal cancer screening is an important part of preventive healthcare for asymptomatic individuals at average risk for colorectal cancer. Following a negative Cologuard result, the [place] Cancer Society and U.S. Multi-Society Task Force screening guidelines recommend a Cologuard re-screening interval of 3 years. References: [place] [employer] Guideline for Colorectal Cancer Screening: https://www.cancer.org/cancer/hivrp-fxsyqq-lthyhq/qjkhdlqzr-zddgpiakc-wuebljr/ac s-rec ommendations.html.; Javier DK, Curtis YANSE, Eric WardK, Colorectal Cancer Screening: Recommendations for Physicians and Patients from the U.S. Multi-Society Task Force on Colorectal Cancer Screening , Am J Gastroenterology 2017; 112:3686-6520. TEST DESCRIPTION: Composite algorithmic analysis of stool DNA-biomarkers with hemoglobin immunoassay. Quantitative values of individual biomarkers are not reportable and are not associated with individual biomarker result reference ranges. Cologuard is intended for colorectal cancer screening of adults of either sex, 45 years or older, who are at average-risk for colorectal cancer (CRC). Cologuard has been approved for use by the U.S. FDA. The performance of Cologuard was established in a cross sectional study of average-risk adults aged 50-84. Cologuard performance in patients ages 45 to 49 years was estimated by sub-group analysis of near-age groups. Colonoscopies performed for a positive result may find as the most clinically significant lesion: colorectal cancer [4.0%], advanced adenoma (including sessile serrated polyps greater than or equal to 1cm diameter) [20%] or non- advanced adenoma [31%]; or no colorectal neoplasia [45%]. These estimates are derived from a prospective cross-sectional screening study of 10,000 individuals at average risk for colorectal cancer who were screened with both Cologuard and colonoscopy. (Evan Hewitt al, N Engl J Med 2014;370(14):8205-1571.) Cologuard may produce a false negative or false positive result (no colorectal cancer or precancerous polyp present at colonoscopy follow up). A negative Cologuard test result does not guarantee the absence of CRC or advanced adenoma (pre-cancer). The current Cologuard screening interval is every 3 years. ([place] Cancer Society and U.S. Multi-Society Task Force). Cologuard performance data in a 10,000 patient pivotal study using colonoscopy as the reference method can be accessed at the following location: www.Kidblog.com/results. Additional description of the Cologuard test process, warnings and precautions can be found at www.SPark!rd.[employer]. Stool specimen (specimen) 01/11/2025 10:42 AM EDT 01/12/2025 1:03 PM EDT Avni Díaz MD LAB MOLECULAR DIAG NOSTICS ORDERABLES Final Result [facility] (CLIA #:[id number]) [address] [place] [address], * Influenza A B2 ID NOW (Lujan) (12/12/2024 4:11 PM EDT) IDNOW SERIAL# [id number] [facility] Influenza A Negative Negative [facility] Influenza B2 Negative Negative [facility] Influenza A B2 Note See Note [facility] Comment:The Lujan ID NOW In fluenza [...] GENERAL ORDERABLES Final Result Performing Organization Address [facility]/ZIP Co de Phone Number [facility] [address] [place] [address] [phone] * COVID-19 ID NOW (LUJAN) (12/12/2024 4:11 PM EDT) IDNOW SERIAL# [id number] [facility] COVID-19 TEST Negative Negative [facility] COVID-19 NOTE See Note [facility] Comment: Results are for the identification of SARS-CoV2 RNA. TheSARS-CoV2 RNA is generally detectable in respiratory samplesduring the acute phase of infection. Positive results areindicative of the presence of SARS-CoV-2 RNA; clinicalcorrelation with patient history and other diagnosticinformation is necessary to determine patient infectionstatus. Positive results do not rule out bacterial infectionor co- infection with other viruses.Testing facilities within the [facility] and [facility] are required to report all positive results [...] use by authorized laboratories.Testing performed on the Therosteon ID NOW utilizing NAAT. 12/12/2024 4:11 PM EDT 12/12/2024 4:17 PM EDT us Generic External Data Provider LAB MOLECULAR OLI GNOSTICS ORDERABLES Final Result [facility] [address] [place] [phone] * High Sensitivity Troponin I (12/12/2024 4:11 PM EDT) TROPONIN I HIGH SENSITIVITY <2.7 <3.5 - 35.0 ng/L [facility] Comment:The Lujan high sens itivity Troponin-I results should beused in conjunction with other diagnostic information suchas ECG, clinical observations and information, and patientsymptoms to aid in the diagnosis of GA. 12/12/2024 4:11 PM EDT 12/12/2024 4:16 PM EDT us Generic External Data Provider LAB BLOOD ORDERAB LES Final Result [facility] [address] [place] [phone] [phone] * (ABNORMAL) CBC auto differential (12/12/2024 4:11 PM EDT) White Blood Count 6.9 4.8 - 10.8 X10*3/uL [facility] Red Blood Count 5.00 4.60 - 5.80 X10*6/uL [facility] Hemoglobin 13.6(L) 14.0 - 18.0 g/dl [facility] Hematocrit 40.5(L) 42.0 - 52.0 % [facility] Mean Corpuscular Volume 81.0 80.0 - 98.0 fL [facility] Mean Corpuscular Hemoglobin 27.2 27.0 - 33.0 pg [facility] Mean Corpuscular HGB Conc 33.6 31.0 - 36.0 g/dl [facility] Red Cell Distribution Width 14.5 11.0 - 16.0 % [facility] Platelet Count 292 160 - 400 X10*3/uL [facility] Mean Platelet Volume 9.8 9.4 - 12.4 fL [facility] Neutrophils Percent Auto 69.2 45 - 73 % [facility] Imm Gran Pct Auto 0.3 0.0 - 0.4 % [facility] Lymphocytes Percent Auto 15.3(L) 20 - 40 % [facility] Monocytes Percent Auto 8.2 2 - 11 % [facility] Eosinophils Percent Auto 6.4(H) 0 - 4 % [facility] Basophils Percent Auto 0.6 0 - 2 % [facility] NRBC Pct Auto 0.0 0.0 - 0.2 /100WBC [facility] Neutrophils Absolute Auto 4.8 2.0 - 8.3 x10*3/uL [facility] Imm Gran Abs Auto 0.02 0.00 - 0.03 X10*3/uL [facility] Lymphocytes Absolute Auto 1.1(L) 1.2 - 4.9 X10*3/uL [facility] Monocytes Absolute Auto 0.6 0.1 - 1.2 X10*3/uL [facility] Eosinophils Absolute Auto 0.4 0.0 - 0.4 X10*3/uL [facility] Basophils Absolute Auto 0.0 0.0 - 0.2 X10*3/uL [facility] NRBC Abs Auto 0.000 0.0 - 0.012 X10*3/uL [facility] 12/12/2024 4:11 PM EDT 12/12/2024 4:16 PM EDT us Generic External Data Provider LAB BLOOD ORDERAB LES Final Result Performing Organization Address City/State/[facility] Co de Phone Number [facility] [address] [place] [phone] * Urinalysis w/reflex microscopic (12/12/2024 4:11 PM EDT) Color Urine Yellow [facility] Appearance Urine Clear [facility] PH 5.5 5.0 - 9.0 [facility] Glucose Urine UA Negative Negative mg/dL [facility] Urine Blood Negative Negative [facility] Specific [place] - Urine 1.020 1.005 - 1.025 [facility] Urine Protein Negative Neg-Trace mg/dL [facility] Urine Ketones Trace Negative mg/dL [facility] Nitrite Urine Negative Negative [facility] Leukocyte Esterase Urine Negative Negative [facility] 12/12/2024 4:11 PM EDT 12/12/2024 4:16 PM EDT Narrative [facility] - 12/12/2024 4:22 PM EDT [id number], Clean Catch us Generic External Data Provider LAB URINE ORDERAB LES Final Result Performing Organization Address City/[facility]/ZIP Co de Phone Number [facility] [address] [place] [phone] * Magnesium (12/12/2024 4:11 PM EDT) Pathologist [facility] Magnesium 2.3 1.6 - 2.6 mg/dL [facility] 12/12/2024 4:11 PM EDT 12/12/2024 4:16 PM EDT Generic External Data Provider LAB BLOOD ORDERAB LES Final Result Performing Organization Address [facility] Co de Phone Number [facility] [address] [place] [address] [phone] * (ABNORMAL) Comprehensive Metabolic Panel (12/12/2024 4:11 PM EDT) Pathologist [facility] Sodium 140 135 - 145 mmol/L [facility] Potassium 3.9 3.3 - 5.1 mmol/L [facility] Chloride 109(H) 96 - 108 mmol/L [facility] Carbon Dioxide 23 22 - 29 mmol/L [facility] Anion Gap 12 12 - 20 [facility] Urea Nitrogen (BUN) 17(H) 9 - 16 mg/dL [facility] Creatinine, Serum 0.91 0.5 - 1.4 mg/dL [facility] Creatinine Clr Calc Pharmacy 91.4 [facility] Comment:eGFR (calculated fro m the MDRD study equation) and eCrCl(calculated from the Cockcroft-Gault equation) are based ondifferent parameters and may not yield comparable results.If eCrCl result is absurd, please check patient'sheight/weight. Estimated Glomerular Filt Rate >60 [facility] Comment:Chronic Kidney Disea se: Estimated GFR < 60 mL/min/1.26p5Nftovz Kidney Disease: Estimated GFR < 15 mL/min/1.73m2 Glucose 125(H) 60 - 115 mg/dL [facility] Calcium 9.1 8.4 - 10.2 mg/dL [facility] Bilirubin, Total 0.3 0.0 - 1.0 mg/dL [facility] Aspartate Amino Transferase 15 5 - 37 U/L [facility] Alanine Aminotransferase <6 0 - 40 U/L [facility] Total Protein 7.7 6.5 - 8.0 g/dL [facility] Albumin Level 4.3 3.5 - 5.0 g/dL [facility] Alkaline Phosphatase 73 39 - 117 U/L [facility] 12/12/2024 4:11 PM EDT 12/12/2024 4:16 PM EDT us Generic External Data Provider LAB BLOOD ORDERAB LES Final Result Performing Organization Address City/State/[facility] Co de Phone Number [facility] [address] [place] [phone] * XR Chest 2 Views (12/12/2024 2:45 PM EDT) Anatomical Region Laterality Modality Chest Radiographic Latesha ging 12/12/2024 2:45 PM EDT Narrative 12/12/2024 2:59 PM EDT [address] [address] XRay Report Signed Patient: Jeffry Castañeda MR#: [id number] 2 : 1960 Acct:[id number] Age/Sex: 63 / M ADM Date: 12/12/24 Loc: .ED Attending Dr: Ordering Physician: Shirley Oliveros Date of Service: 12/12/24 Procedure(s): XR chest 2V Accession Number(s): [id number] cc: Avni Elias MD; Shirley Oliveros Reason [...] 12/12/24 1456 DD/ 1445 TD/TT: 12/12/24 1450 Director Business Development: Procedure Note Donotuseinterpreter, Image - 12/12/[address] [address] XRay Report Signed Patient: Kaleb Castañeda#: [id number] 2 : 1960cct:[id number] Age/Sex: 63 / MADM Date: 12/12/24 Loc: .ED Attending Dr: Ordering Physician: Shirley Oliveros Date of Service: 12/12/24 Procedure(s): XR chest 2V Accession Number(s): [id number] cc: Avni Elias MD; Shirley Oliveros Reason [...] 12/12/24 1456 DD/ 1445 TD/TT: 12/12/24 1450 Director Business Development: [facility] External Provider IMG XR PROCEDURES Final Result * (ABNORMAL) Hemoglobin A1c (09/28/2024 8:35 AM EDT) Hemoglobin A1c 6.1(H) <6.0 % [facility] Comment:Hemoglobin A1C Refer ence Range Adults: 4.8 - 6.0 % Non diabetic: < 6.0 % Goal: < 7.0 %Additional Action Suggested: > 8.0 %Note: Hemoglobin A1c results are invalid for patients with abnormal amounts of HbF. Blood transfusions may impact the HbA1c concentration in the patient sample. Estimated Average Glucose 128 mg/dL [facility] Comment:eAG = Estimated ave rage glucose which is %A1C expressed asaverage glucose, using the formula of the K0Y-AwwrxidNelrexs Glucose study (ADAG), Diabetes Care, Vol.31,#8,Oct. 2007 Blood Venous blood specimen / Unknown 09/28/2024 8:35 AM EDT 09/28/2024 11:13 AM EDT us Avni Díaz MD LAB BLOOD ORDERABL ES Final Result [facility] [address] [place] [phone] * Lipid Panel, Standard (09/28/2024 8:35 AM EDT) Triglycerides 62 <150 mg/dL [facility] Comment:Desirable Triglyceri de: less than 150 mg/dLBorderline High Triglyceride 150-199 mg/dLHigh Triglyceride: 200-499 mg/dLVery High Triglyceride: greater than or equal to 5OO mg/dL Cholesterol 116 <200 mg/dL [facility] Comment:Desirable Cholestero l: less than 200 mg/dLBorderline High Cholesterol: 200-239 mg/dLHigh Cholesterol: greater than 239 mg/dL LDL Cholesterol Calculated 58 <100 mg/dL [facility] Comment:Desirable LDL: less than 100 mg/dLNear Optimal/Above Optimal LDL: 110- 129 mg/dLBorderline High LDL: 130-159 mg/dLHigh LDL: 160-189 mg/dLVery High LDL: greater than or equal to 190 mg/dL HDL Cholesterol 46 >40 mg/dL [facility] Comment:Desirable HDL: great er than 40 mg/dL Note: This HDL assay may give artificially low results in patients with liver disease. Blood Venous blood specimen / Unknown 09/28/2024 8:35 AM EDT 09/28/2024 11:13 AM EDT Avni Díaz MD LAB BLOOD ORDERABL ES Final Result Performing Organization Address [facility] Co de Phone Number [facility] [address] [place] [phone] * Hepatitis Panel, General (11/28/2022 10:21 AM EDT) Hepatitis A IgM Nonreactive Nonreactive [facility] Comment:IgM antibodies to GAGE V not detected; does not exclude earlyacute or recovered HAV infection. ~Hepatitis B Surface Antibody REACTIVE Nonreactive [facility] Comment:REACTIVE: > 11.99 mI U/mL Hepatitis B Core Antibody Nonreactive Nonreactive [facility] Hepatitis C Antibody Nonreactive Nonreactive [facility] Comment:Antibodies to HCV no t detected; does not exclude early acuteHCV infection. Hepatitis B Surface Ag Negative Negative [facility] Blood 11/28/2022 10:2 1 AM EDT 11/28/2022 2:58 PM EDT Avni Díaz MD LAB BLOOD ORDERABL ES Final Result Performing Organization Address [facility] Co de Phone Number [facility] [address] [place] [phone] * HIV 1/2 ANTIGEN/ANTIBODY,FOURTH GENERATION W/RFL (01/12/2020 9:36 AM EDT) HIV-1/2 ANTIGEN AND ANTIBODIES, 4TH GENERATION W/ REFLEX NON-REACT SANCHEZ NON-REACT SANCHEZ [facility] Comment: HIV-1 antigen and HIV-1/HIV-2 [...] purpose. For additional information please refer to http://education.[employer]faq/RQJ849 (This link is being provided for informational/ educational purposes only.) The performance of this assay has not been clinically validated in patients less than 2 years old. 01/12/2020 9:36 AM EDT us Avni Díaz MD LAB BLOOD ORDERABL ES Final Result [facility] Anywhere [address] from Last 3 Months or Most Recently Relevant to Health Maintenance Insurance [facility] [employer] CARE < 65 [place] [id number] [facility] Care Teams Cardiovascular Operating Room Nurse Relationship Specialty Start Date End Date GuerrierAvni Garcia MD [address] [place] [phone] PCP - General Internal Medicine 08/11/19
--- OUTSIDE RECORDS SUMMARY | 2025-01-20 12:51 | XMS_ITS | Encounter Summary ---
Author Organization [employer] Address [address] [facility] [address] [place] [address] Care Team Providers Care Piping Blocker Name Role Phone Avni Elias MD Primary Care Prov ider Reason for Visit * Reason Comments Med Refill Encounter Details Date Type Department Care Team ([facility] st Contact Info) Description 01/18/2025 Refill [facility] [address] [place], [place] [phone] Mara Jung MD [address] [place] [address] Left foot pain Social History Tobacco Use Types Packs/Day Years [...] as of this encounter Visit Diagnoses Diagnosis Left foot pain Pain in soft tissues of limb documented in this encounter Additional Health Concerns Assessment Noted Time PHQ-9 Depression Total Score: 9 12/16/19 25 11:22 AM EDT documented as of this encounter Care Teams Piping Blocker Relationship Specialty Start Date End Date Avni Elias MD [address] [place] [phone] PCP - General Internal Medicine 08/11/19 documented as of this encounter
--- OUTSIDE RECORDS SUMMARY | 2025-01-20 12:51 | XMS_ITS | Encounter Summary ---
Author Organization [employer] Address 75 [facility] 7 [place] [address] Care Team Providers Care Strategic Debriefing Specialist Name Role Phone Avni Elias MD Primary Care Prov ider Reason for Visit * Reason Onset Date Comments Referral 02/22/2024 Encounter Details Date Type Department Care Team ([facility] st Contact Info) Description 02/22/2024 Telephone [facility] MEDICINE [address] [place] [address] Avni Elias MD 505 [place] [address] Referral Social History Tobacco Use Types Packs/Day [...] Tc from pt requesting a referral for [facility] Vision center. If any questions you can contact pt at [phone]. documented in this encounter Plan of Treatment Not on file documented as of this encounter Visit Diagnoses Not on filedocumented in this encounter Additional Health Concerns Assessment Noted Time PHQ-9 Depression Total Score: 2 06/05/19 23 3:24 PM EDT documented as of this encounter Care Teams Strategic Debriefing Specialist Relationship Specialty Start Date End Date Avni Elias MD [address] [place] [phone] PCP - General Internal Medicine 08/11/19 documented as of this encounter
--- OUTSIDE RECORDS SUMMARY | 2025-01-20 12:51 | XMS_ITS | Encounter Summary ---
Author Organization [email or web address] Address 75 [facility] 7 [place] [address] Care Team Providers Care Dwarf Tree Grower Name Role Phone Avni Elias MD Primary Care Prov ider Reason for Visit * Reason Onset Date Comments Nurse Triage 04/13/2023 Encounter Details Date Type Department Care Team ([facility] st Contact Info) Description 04/13/2023 Telephone [facility] [address] [place] [address] Avni Elias MD [address] [place] [address] Nurse Triage Social History Tobacco Use Types [...] to [facility] tomorrow. Declines [facility] same day. Reviewed home care advise and reasons to call back. Protocol Used: Cough (Adult) Protocol-Based Disposition: See in Office or Video Visit Today or Tomorrow Future Appointments Date Time Provider Department Center 04/14/2023 9:00 AM [facility] SAME DAY CARE [facility] Video visit offer not recorded [...] documented as of this encounter Care Teams Dwarf Tree Grower Relationship Specialty Start Date End Date Avni Elias MD [address] [place] [phone] PCP - General Internal Medicine 08/11/19 documented as of this encounter
== END 2025-01-20 11:37 | disposition home or self-care (01) ==
LOC: HO.HSM 10:50
PROVIDERS: PCP Internal Medicine; Visit Provider Registered Nurse
DX: G20.C Parkinsonism, unspecified (principal); G47.52 REM sleep behavior disorder
CPT/HCPCS: 99214

== ENCOUNTER → 2025-01-20 10:49 | Outpatient (BNVA) | payer OTHER, SELFPAY | PROVIDERS: PCP Internal Medicine; Visit Provider Registered Nurse | DX: G47.52 REM sleep behavior disorder (principal); G20.C Parkinsonism, unspecified | CPT/HCPCS: 99212 ==

== ENCOUNTER 2025-03-10 10:12 | Outpatient (AMB) | payer OTHER, MEDICAID, SELFPAY ==
--- OUTSIDE RECORDS SUMMARY | 2025-03-10 10:16 | XMS_ITS | Encounter Summary ---
Author Organization [employer] Address [address] [place] [address] 7t [place] [address] Care Team Providers Care Enterprise Records Analyst Name Role Phone Avni Elias MD Primary Care Prov ider Encounter Details Date Type Department Care Team ([facility] Contact Info) Description 06/06/2022 Abstract [facility] MED & PEDS [address] [place], [place] [phone] Avni Elias MD 505 [place] [address] Social History Tobacco Use Types Packs/Day Years [...] Upcoming Encounters Date Type Department Care Team ([facility] Contact Info) Description 07/07/2025 11:00 AM EDT Office Visit [facility] [address] [place] [address] Sidney, Tata, OD [address] [place] [address] documented as of this encounter Visit Diagnoses Not on filedocumented in this encounter Additional Health Concerns Assessment Noted Time PHQ-9 Depression Total Score: 2 06/05/19 23 3:24 PM EDT documented as of this encounter Care Teams Enterprise Records Analyst Relationship Specialty Start Date End Date Avni Elias MD [address] [place] [id number] PCP - General Internal Medicine 08/11/19 documented as of this encounter
--- OUTSIDE RECORDS SUMMARY | 2025-03-10 10:16 | XMS_ITS | Encounter Summary ---
Author Organization [employer] Address 75 [facility] 7 [place] [address] Care Team Providers Care Night Cleaner Name Role Phone Avni Elias MD Primary Care Prov ider Reason for Visit * Reason Onset Date Comments Nurse Triage 04/13/2023 Encounter Details Date Type Department Care Team ([facility] st Contact Info) Description 04/13/2023 Telephone [facility] CHC MED & PEDS [address] [place] [address] Avni Elias MD 505 [place] [address] Nurse Triage Social History Tobacco Use Types [...] clear full sentences. Pt agrees to [facility] tomorrow. Declines [facility] same day. Reviewed home care advise and reasons to call back. Protocol Used: Cough (Adult) Protocol-Based Disposition: See in Office or Video Visit Today or Tomorrow Future Appointments Date Time Provider Department Center 04/14/2023 9:00 AM [facility] SAME DAY CARE [facility] Video visit offer not recorded Positive [...] Care Team (Late st Contact Info) Description 07/07/2025 11:00 AM EDT Office Visit [facility] OPTOMETRY [address] [place] [address] Tata Little, OD [address] [place] [address] documented as of this encounter Visit Diagnoses Not on filedocumented in this encounter Additional Health Concerns Assessment Noted Time PHQ-9 Depression Total Score: 2 06/05/19 23 3:24 PM EDT documented as of this encounter Care Teams Night Cleaner Relationship Specialty Start Date End Date Avni Elias MD [address] [place] [phone] PCP - General Internal Medicine 08/11/19 documented as of this encounter
--- OUTSIDE RECORDS SUMMARY | 2025-03-10 10:16 | XMS_ITS | Encounter Summary ---
Author Organization [employer] Address 75 [facility] 7 [place] [address] Care Team Providers Care Triage Register Nurse Name Role Phone Avni Elias MD Primary Care Prov ider Reason for Visit * Reason Onset Date Comments Med Refill 11/11/2023 Encounter Details Date Type Department Care Team ([facility] st Contact Info) Description 11/11/2023 Telephone [facility] MEDICINE [address] [place] [address] Avni Elias MD [address] [place] [address] Med Refill Social History Tobacco Use Types [...] 10 MG tablet To be sent to: [facility] - [place], [place] - [address] [place] [address] documented in this encounter Plan of Treatment Upcoming Encounters Date Type Department Care Team (Late st Contact Info) Description 07/07/2025 11:00 AM EDT Office Visit [facility] OPTOMETRY [address] [place] [address] Tata Little, OD [address] [facility] [place] [address] documented as of this encounter Visit Diagnoses Not on filedocumented in this encounter Additional Health Concerns Assessment Noted Time PHQ-9 Depression Total Score: 2 06/05/19 23 3:24 PM EDT documented as of this encounter Care Teams Triage Register Nurse Relationship Specialty Start Date End Date Avni Elias MD [address] [place] [address] PCP - General Internal Medicine 08/11/19 documented as of this encounter
--- OUTSIDE RECORDS SUMMARY | 2025-03-10 10:16 | XMS_ITS | Encounter Summary ---
Author Organization [employer] Address 75 [facility] 7 [place] [address] Care Team Providers Care Windows Desktop Support Name Role Phone Avni Elias MD Primary Care Prov ider Reason for Visit * Reason Onset Date Comments Referral 02/22/2024 Encounter Details Date Type Department Care Team ([facility] st Contact Info) Description 02/22/2024 Telephone [facility] MEDICINE [address] [place] [address] Avni Elias MD [address] [place] [address] Referral Social History Tobacco Use Types Packs/Day [...] Tc from pt requesting a referral for [facility] Vision center. If any questions you can contact pt at [phone]. documented in this encounter Plan of Treatment Upcoming Encounters Date Type Department Care Team (Late st Contact Info) Description 07/07/2025 11:00 AM EDT Office Visit [facility] OPTOMETRY [address] [place] [address] Sidney, Tata, OD 230 [place] [address] documented as of this encounter Visit Diagnoses Not on filedocumented in this encounter Additional Health Concerns Assessment Noted Time PHQ-9 Depression Total Score: 2 06/05/19 23 3:24 PM EDT documented as of this encounter Care Teams Windows Desktop Support Relationship Specialty Start Date End Date Avni Elias MD [address] [place] [address] PCP - General Internal Medicine 08/11/19 documented as of this encounter
--- OUTSIDE RECORDS SUMMARY | 2025-03-10 10:16 | XMS_ITS | Encounter Summary ---
Author Organization [employer] Address 75 [facility] 7 [place] [address] Care Team Providers Care Vp Scientific Name Role Phone Avni Elias MD Primary Care Prov ider Reason for Visit * Reason Onset Date Comments Med Refill 08/06/2022 Encounter Details Date Type Department Care Team ([facility] st Contact Info) Description 08/06/2022 Telephone [facility] MEDICINE [address] [place] [address] Avni Elias MD [address] [place] [address] Med Refill Social History Tobacco Use Types [...] (Ambien) 10 MG tablet Please sent to [facility] - [place], [place] - [address] [facility] documented in this encounter Plan of Treatment Upcoming Encounters Date Type Department Care Team (Late st Contact Info) Description 07/07/2025 11:00 AM EDT Office Visit [facility] OPTOMETRY [address] [place] [address] Tata Little, OD [address] [place] [address] documented as of this encounter Visit Diagnoses Not on filedocumented in this encounter Additional Health Concerns Assessment Noted Time PHQ-9 Depression Total Score: 2 06/05/19 23 3:24 PM EDT documented as of this encounter Care Teams Vp Scientific Relationship Specialty Start Date End Date Avni Elias MD [address] [place] [phone] PCP - General Internal Medicine 08/11/19 documented as of this encounter
--- OUTSIDE RECORDS SUMMARY | 2025-03-10 10:16 | XMS_ITS | Encounter Summary ---
Author Organization [employer] Address 75 [facility] 7t [place] [address] Care Team Providers Care Brand Ambassador Promotional Model Name Role Phone Avni Elias MD Primary Care Prov ider Reason for Visit * Reason Comments Med Change Request Encounter Details Date Type Department Care Team ([facility] Contact Info) Description 10/16/2023 Refill C [facility] MED [facility] PEDS [address] [place], [place] [phone] Lynne Lam MD [address] [place] [address] Social History Tobacco Use Types Packs/Day Years [...] Description 07/07/2025 11:00 AM EDT Office Visit [facility] OPTOMETRY [address] [place], [place] [phone] Sidney, Tata, OD [address] [place] [address] documented as of this encounter Visit Diagnoses Not on filedocumented in this encounter Additional Health Concerns Assessment Noted Time PHQ-9 Depression Total Score: 2 06/05/19 23 3:24 PM EDT documented as of this encounter Care Teams Brand Ambassador Promotional Model Relationship Specialty Start Date End Date Avni Elias MD [address] [place] [address] PCP - General Internal Medicine 08/11/19 documented as of this encounter
--- OUTSIDE RECORDS SUMMARY | 2025-03-10 10:16 | XMS_ITS | Encounter Summary ---
Author Organization [employer] Address 75 [facility] 7t [place] [address] Care Team Providers Care Batch Trucker Name Role Phone Avni Elias MD Primary Care Prov ider Encounter Details Date Type Department Care Team ([facility] st Contact Info) Description 06/09/2023 Orders Only [facility] CHC MED & PEDS [address] [place], [place] [phone] Gil Moore MD [address] [place] [address] Social History Tobacco Use Types Packs/Day Years [...] Description 07/07/2025 11:00 AM EDT Office Visit [facility] OPTOMETRY [address] [place] [address] Sidney, Tata, OD [address] [place] [address] documented as of this encounter Visit Diagnoses Not on filedocumented in this encounter Additional Health Concerns Assessment Noted Time PHQ-9 Depression Total Score: 2 06/05/19 23 3:24 PM EDT documented as of this encounter Care Teams Batch Trucker Relationship Specialty Start Date End Date Avni Elias MD [address] [place] [address] PCP - General Internal Medicine 08/11/19 documented as of this encounter
--- OUTSIDE RECORDS SUMMARY | 2025-03-10 10:16 | XMS_ITS | Encounter Summary ---
Author Organization [employer] Address 75 [facility] 7 [place] [address] Care Team Providers Care Environmental Services Lead Name Role Phone Avni Elias MD Primary Care Prov ider Reason for Visit * Reason Comments Med Refill Encounter Details Date Type Department Care Team ([facility] st Contact Info) Description 03/07/2025 Refill C [facility] MED [facility] PEDS [address] [place], [place] [phone] Avni Elias MD [address] [place] [address] Primary insomnia Social History Tobacco Use Types Packs/Day Years Used Date Smoking Tobacco: Never Smokeless Tobacco: Never Alcohol Use Standard Drinks/Week Comments Not Currently 0 (1 standard drink = 0.6 oz pur e alcohol) Depression Answer Date Recorded Patient Health Questionnaire-9 Score 2 02/16/2025 Patient Health Questionnaire-9 Score 2 02/16/2025 Last PHQ-9: Questionnaire Data Not on file 1 04/19/2024 Housing Stability Answer Date Recorded What is your housing situation today? I have jose magallanes 02/16/[address] you li ve. Do you have problems with any of the following? None of the above 02/16/2025 Food Insecurity Answer Date Recorded Within the past 12 months, y ou worried that your food would run out before you got money to buy more: Never True 02/16/2025 Within the past 12 months,th e food you bought just didn't last and you didn't have enough money to get more: Never True 06/2024 Transportation Answer Date Recorded In the past 12 months, has l ack of transportation kept you from medical appts, meetings, work or from getting things needed for daily living? No 02/16/2025 Utilities Answer Date Recorded In the past 12 months, has t he electric, gas, oil or water company threatened to shut off services in your home? No 02/16/2025 Depression Answer Date Recorded Patient Health Questionnaire-2 Score 2 02/16/2025 Internet Access Answer Date Recorded Internet Access Q1 Yes 02/16/2025 Internet Access Q2 Not on file 02/16/2025 Sex and Gender Information Value Date Recorded Sex Assigned at Male 01/13/2022 10:37 AM EDT Legal Sex Male 10:37 AM EDT Gender Identity Male 01/13/2022 10:37 AM EDT Sexual Orientation Straight 12/25/2022 3: 40 PM EDT documented as of this encounter Plan of Treatment Upcoming Encounters Date Type Department Care Team (Late st Contact Info) Description 07/07/2025 11:00 AM EDT [facility] [address] [place] [address] Sidney, Tata, OD [address] [place] [address] documented as of this encounter Visit Diagnoses Diagnosis Primary insomnia Persistent disorder of initiating or maintaining sleep documented in this encounter Additional Health Concerns Assessment Noted Time PHQ-9 Depression Total Score: 2 02/17/20 25 10:51 AM EST documented as of this encounter Care Teams Environmental Services Lead Relationship Specialty Start Date End Date Avni Elias MD [address] [place] [phone] PCP - General Internal Medicine 08/11/19 documented as of this encounter
--- OUTSIDE RECORDS SUMMARY | 2025-03-10 10:16 | XMS_ITS | Encounter Summary ---
Author Organization [email or web address] Address [address] [place] [address] [address] [address] Care Team Providers Care Baseball Hand Sewer Name Role Phone Avni Elias MD Primary Care Prov ider Reason for Visit * Reason Comments Med Refill Encounter Details Date Type Department Care Team (Late Contact Info) Description 05/07/2022 Refill [facility] CHC MED & PEDS [address] [place] [address] Avni Elias MD [address] [place] [address] Primary insomnia Social History Tobacco Use Types [...] Department Care Team (Late Contact Info) Description 07/07/2025 11:00 AM EDT Office Visit [facility] OPTOMETRY [address] [place] [address] Sidney, Tata, OD [address] [place] [address] documented as of this encounter Visit Diagnoses Diagnosis Primary insomnia Persistent disorder of initiating or maintaining sleep documented in this encounter Care Teams Baseball Hand Sewer Relationship Specialty Start Date End Date Avni Elias MD [address] [place] [id number] PCP - General Internal Medicine 08/11/19 documented as of this encounter
--- OUTSIDE RECORDS SUMMARY | 2025-03-10 10:17 | XMS_ITS | Clinical Summary ---
Author Organization [employer] Address [address] [facility] [address] [place] [address] Care Team Providers Care E/M Engineer Name Role Phone Avni Elias MD Primary [...] if needed for wheezing. 75 mL 2 04/14/19 24 Active methocarbamol (Robaxin) 750 MG tablet TAKE 1 TABLET BY MOUTH FOUR TIMES DAILY FOR 10 DAYS 40 tablet 02/22/20 24 Active atorvastatin (Lipitor) 20 MG tablet Take 1 tablet (20 mg) by mouth Once per day. 90 tablet 3 12/13/19 25 2025 Active carbidopa-levod opa CR (Sinemet CR) 50-200 MG ER tablet Take 1 tablet by mouth 2 times daily. 11/25/19 25 Active pramipexole (Mirapex) 0.125 MG tablet Take 1 tablet by mouth 3 times daily. 11/09/19 25 Active sertraline (Zoloft) 25 MG tablet Take 1 tablet by mouth Once per day. 11/08/19 25 Active Diclofenac Sodium 1 % gel APPLY 2 GRAM TOPICALLY AFFECTED AREA(S) THREE TIMES DAILY 200 g 2 5 11:42 AM EST 01/05/20 25 Active amLODIPine (Norvasc) 5 MG tabletIndicatio ns:Primary hypertension TAKE 1 TABLET BY MOUTH EVERY MORNING 90 tablet 1 01/12/20 25 Active albuterol (Ventolin HFA) 108 (90 Base) MCG/ACT inhalerIndicati ons:Mild intermittent asthma without complication INHALE 2 PUFFS BY MOUTH EVERY 4 TO 6 HOURS NEEDED FOR WHEEZING OR SHORTNESS OF BREATH 18 g 1 5 1:38 PM EST 01/18/20 25 Active diclofenac (Cataflam) 50 MG tabletIndicatio ns:Left foot pain TAKE 1 TABLET BY MOUTH THREE TIMES DAILY NEEDED FOR PAIN 60 tablet 1 5 1:13 PM EST 01/20/20 25 Active lidocaine (Lidoderm) 5 % patchIndication s:Chronic bilateral low back pain without sciatica Apply 1 patch topically Once per day. Remove & discard patch within 12 hours or as directed by MD. 30 patch 3 02/17/20 Active polyethylene glycol, PEG, 3350 (MiraLax) 17 GM/SCOOP powder Take 17 g by mouth Once per day. 510 g 3 5 9:23 AM EST 02/17/20 25 2025 Active zolpidem (Ambien) 10 MG tabletIndicatio ns:Primary insomnia TAKE 1 TABLET BY MOUTH AT BEDTIME 30 tablet 5 1:39 PM EST 03/07/20 25 Active zolpidem (Ambien) 10 MG tabletIndicatio ns:Primary insomnia Take 1 tablet (10 mg) by mouth at bedtime. 30 tablet 5 1:13 PM EST 02/02/20 25 2024 Discontinued Active Problems Problem Noted Date [...] be made, lifestyle medications reinforced Parkinson disease ([facility]) 04/07/2022 Assessment & Plan (01/29/2024 1:59 PM EST): Followed by neurology on mirapex and sinemet, symptoms stable Will send orders for wipes, since he has uncontrolled shaking he can't control his urine and bowel movement therefore he will benefit from the wipes for better hygiene Assessment & Plan (06/06/2022 9:29 AM EDT): Patient disease has been progressing, followed by neurology, patient will need EDUCATION SPECIALIST hours to help him with ADL, will [...] organization. Date Type Department Care Team Description 03/07/2025 Refill [facility] [address] [place] [address] Avni Elias MD Primary insomnia 02/23/2025 Travel 02/20/2025 Telephone [facility] [address] [place] [address] Avni Elias MD 02/16/2025 11:15 AM EST Telemedicine [facility] [address] [place] [address] Avni Elias MD Parkinson's disease with dyskinesia and fluctuating manifestations (CMS/HCC) (HCC) (Primary Dx); Primary hypertension; Chronic bilateral low back pain without sciatica 02/16/2025 Travel 01/31/2025 Refill [facility] [address] [place] [address] Avni Elias MD Primary insomnia 01/18/2025 Refill [facility] [address] [place] [address] Mara Jung MD Left foot pain 01/15/2025 Refill [facility] [address] [place] [address] vAni Elias MD Mild intermittent asthma without complication 01/09/2025 Refill [facility] [address] [place] [address] Avni Elias MD Primary hypertension 01/05/2025 Telephone [facility] [address] [place] [address] Avni Elias MD No show 01/05/2025 Refill [facility] [address] [place] [address] Avni Elias MD Primary insomnia 01/04/2025 Telephone [facility] [address] [place] [address] Avni Elias MD chart prep 01/04/2025 Refill [facility] [address] [place] [address] Avni Elias MD 12/15/2024 11:30 AM EDT Telemedicine [facility] [address] [place] [address] Avni Elias MD Current mild episode of major depressive disorder without prior episode (CMS/HCC) (Primary Dx); Dietary counseling; Exercise counseling; Parkinson's disease with dyskinesia and fluctuating manifestations (CMS/HCC) (HCC); Obesity, morbid (HCC) 12/15/2024 Travel 12/12/2024 10:30 AM EDT Telemedicine [facility] [address] [place] [address] Avni Elias MD Screening for colon cancer (Primary Dx); Primary hypertension; Mixed hyperlipidemia 12/12/2024 Orders Only [facility] External Provider, [facility] 12/12/2024 Travel 12/09/2024 Refill [facility] [address] [place] [address] Avni Elias MD Primary insomnia from Last [...] the past 12 months, has t he [place], gas, oil or water company threatened to [...] Sign Reading Time Taken Comments Blood Pressure 124/86 02/16/2025 11:31 AM EST Pulse 92 02/16/2025 11:31 AM EST Temperature 36.9 C (98.5 F) 01/29/2024 9:43 [...] Description 07/07/2025 11:00 AM EDT Office Visit [facility] [address], [place] [phone] [place], Tata, OD [address] [place] [address] Health Maintenance Due Date Last Done Comments CT Colonography 1960 Colonoscopy 1960 Dental Oral Exam 1960 Dental Prophylaxis 1960 Dental X-Ray: Bitewings 1960 Dental X-Ray: Full Mouth 1960 FIT 1960 Sigmoidoscopy 1960 Disability Screening 1960 RSV Patients and Patients Aged 60 years or older (1 - Risk 50-74 years 1-dose series) 12/23/2011 Zoster Vaccines (2 of 2) 04/27/2020 03/02/2020 COVID-19 Vaccine (3 - season) 2024 05/09/2020, 04/11/2020 Influenza Vaccine (#1) 2024 , 12/23/2022, 01/29/2022, Additional history exists Tobacco Screening 01/28/2025 01/29/2024 Diabetes: Hemoglobin A1C 09/28/2025 025, 11/28/2021, 01/12/2020 FOBT 01/11/2026 01/11/2025 Alcohol/Substance Use Screening 02/16/2026 02/16/2025 Depression Screening 02/16/2026 02/16/2025, 02/17/20 SDOH Screening 02/16/2026 02/16/2025 Colorectal Cancer Screening 01/12/2028 FIT DNA/Cologuard 01/12/2028 [...] colon cancer screening (01/11/2025 10:42 AM EDT) Cologuard Result Negative Negative 01/17/20 25 12:24 PM [facility] [employer] (IA #:[id number]) Comment: The Cologuard (TM) test was performed [...] cancer. Following a negative Cologuard result, the [place] Cancer Society and U.S. Multi-Society Task Force screening guidelines recommend a Cologuard re-screening interval of 3 years. References: [place] [employer] Guideline for Colorectal Cancer Screening: https://www.cancer.org/cancer/onbff-yxgjxw-tlmzzs/tpsagoxjh-ofzcnghbo-dypkniw/ac s-rec ommendations.html.; Javier WASHBURN, Curtis YANES, Eric WardK, Colorectal Cancer Screening: Recommendations for Physicians and Patients from the U.S. Multi-Society Task Force on Colorectal Cancer Screening , Am J Gastroenterology 2017; 112:4088-3157. TEST DESCRIPTION: Composite algorithmic analysis of stool [...] screened with both Cologuard and colonoscopy. (Evan Vazquez, N Engl J Med 2014;370(14):7115-5079.) Cologuard may produce a false negative or false positive result (no colorectal cancer or precancerous polyp present at colonoscopy follow up). A negative Cologuard test result does not guarantee the absence of CRC or advanced adenoma (pre-cancer). The current Cologuard screening interval is every 3 years. ([place] Cancer Society and U.S. Multi-Society Task Force). Cologuard performance data in a 10,000 patient pivotal study using colonoscopy as the reference method can be accessed at the following location: www.Giggle.BiggiFi/results. Additional description of the Cologuard test process, warnings and precautions can be found at www.cologActive Life Scientificrd.com. Stool specimen (specimen) 01/11/2025 10:42 AM EDT 01/12/2025 1:03 PM EDT Avni Díaz MD LAB MOLECULAR DIAG NOSTICS ORDERABLES Final Result Performing Organization Address City/[facility] Co de Phone Number [employer] (CLIA #:[id number]) [address] [place] [address], * Influenza A B2 ID NOW (Lujan) (12/12/2024 4:11 PM EDT) IDNOW SERIAL# [id number] [facility] Influenza A Negative Negative [facility] Influenza B2 Negative Negative [facility] Influenza A B2 Note See Note [facility] Comment:The Lujan ID NOW In [...] LAB MICROBIOLOGY - GENERAL ORDERABLES Final Result [facility] [address] [place] [address] [phone] * COVID-19 ID NOW (LUJAN) (12/12/2024 4:11 PM EDT) [facility] IDNOW SERIAL# [id number] [facility] COVID-19 TEST Negative Negative [facility] COVID-19 NOTE See Note [facility] Comment: Results are for the identification of SARS-CoV2 RNA. TheSARS-CoV2 RNA is generally detectable in respiratory samplesduring the acute phase of infection. Positive results areindicative of the presence of SARS-CoV-2 RNA; clinicalcorrelation with patient history and other diagnosticinformation is necessary to determine patient infectionstatus. Positive results do not rule out bacterial infectionor co- infection with other viruses.Testing facilities within the [facility] and itsterritories are required to report [...] GNOSTICS ORDERABLES Final Result Performing Organization Address City/[facility]/ZIP Co de Phone Number [facility] [address] [place] [address] [phone] * High Sensitivity Troponin I (12/12/2024 4:11 PM EDT) [facility] TROPONIN I HIGH SENSITIVITY <2.7 <3.5 - 35.0 ng/L [facility] Comment:The Lujan high sens itivity Troponin-I results should beused in conjunction with other diagnostic information suchas ECG, clinical observations and information, and patientsymptoms to aid in the diagnosis of ID. 12/12/2024 4:11 PM EDT 12/12/2024 4:16 PM EDT us Generic External Data Provider LAB BLOOD ORDERAB LES Final Result [facility] [address] [place] [address] [phone] * (ABNORMAL) CBC auto differential (12/12/2024 4:11 PM EDT) [facility] White Blood Count 6.9 4.8 - 10.8 X10*3/uL [facility] Red Blood Count 5.00 4.60 - 5.80 X10*6/uL [facility] Hemoglobin 13.6(L) 14.0 - 18.0 g/dl [facility] Hematocrit 40.5(L) 42.0 - 52.0 % [facility] Mean Corpuscular Volume 81.0 80.0 - 98.0 fL [facility] Mean Corpuscular Hemoglobin 27.2 27.0 - 33.0 pg [facility] Mean Corpuscular HGB Conc 33.6 31.0 - 36.0 g/dl [facility] Red Cell Distribution Width 14.5 11.0 - 16.0 % [facility] Platelet Count 292 160 - 400 X10*3/uL [facility] Mean Platelet Volume 9.8 9.4 - 12.4 fL [facility] Neutrophils Percent Auto 69.2 45 - 73 % [facility] Imm Gran Pct Auto 0.3 0.0 - 0.4 % [facility] Lymphocytes Percent Auto 15.3(L) 20 - 40 % [facility] Monocytes Percent Auto 8.2 2 - 11 % [facility] Eosinophils Percent Auto 6.4(H) 0 - 4 % [facility] Basophils Percent Auto 0.6 0 - 2 % [facility] NRBC Pct Auto 0.0 0.0 - 0.2 /100WBC [facility] Neutrophils Absolute Auto 4.8 2.0 - 8.3 x10*3/uL [facility] Imm Gran Abs Auto 0.02 0.00 - 0.03 X10*3/uL [facility] Lymphocytes Absolute Auto 1.1(L) 1.2 - 4.9 X10*3/uL [facility] Monocytes Absolute Auto 0.6 0.1 - 1.2 X10*3/uL [facility] Eosinophils Absolute Auto 0.4 0.0 - 0.4 X10*3/uL [facility] Basophils Absolute Auto 0.0 0.0 - 0.2 X10*3/uL [facility] NRBC Abs Auto 0.000 0.0 - 0.012 X10*3/uL [facility] 12/12/2024 4:11 PM EDT 12/12/2024 4:16 PM EDT us Generic External Data Provider LAB BLOOD ORDERAB LES Final Result [facility] [address] [place] [phone] * Urinalysis w/reflex microscopic (12/12/2024 4:11 PM EDT) Color Urine Yellow [facility] Appearance Urine Clear [facility] PH 5.5 5.0 - 9.0 [facility] Glucose Urine UA Negative Negative mg/dL [facility] Urine Blood Negative Negative [facility] Specific [place] - Urine 1.020 1.005 - 1.025 [facility] Urine Protein Negative Neg-Trace mg/dL [facility] Urine Ketones Trace Negative mg/dL [facility] Nitrite Urine Negative Negative [facility] Leukocyte Esterase Urine Negative Negative [facility] 12/12/2024 4:11 PM EDT 12/12/2024 4:16 PM EDT Narrative [facility] - 12/12/2024 4:22 PM EDT [id number], Clean Catch us Generic External Data Provider LAB URINE ORDERAB LES Final Result Performing Organization Address [facility] Co de Phone Number [facility] [address] [place] [phone] * Magnesium (12/12/2024 4:11 PM EDT) Pathologist [facility] Magnesium 2.3 1.6 - 2.6 mg/dL [facility] 12/12/2024 4:11 PM EDT 12/12/2024 4:16 PM EDT Generic External Data Provider LAB BLOOD ORDERAB LES Final Result Performing Organization Address [facility] de Phone Number [facility] [address] [place] [phone] * (ABNORMAL) Comprehensive Metabolic Panel (12/12/2024 4:11 PM EDT) Pathologist [facility] Sodium 140 135 - 145 mmol/L [facility] Potassium 3.9 3.3 - 5.1 mmol/L [facility] Chloride 109(H) 96 - 108 mmol/L [facility] Carbon Dioxide 23 22 - 29 mmol/L [facility] Anion Gap 12 12 - 20 [facility] Urea Nitrogen (BUN) 17(H) 9 - 16 mg/dL [facility] Creatinine, Serum 0.91 0.5 - 1.4 mg/dL [facility] Creatinine Clr Calc Pharmacy 91.4 [facility] Comment:eGFR (calculated fro m the MDRD study equation) and eCrCl(calculated from the Cockcroft-Gault equation) are based ondifferent parameters and may not yield comparable results.If eCrCl result is absurd, please check patient'sheight/weight. Estimated Glomerular Filt Rate >60 [facility] Comment:Chronic Kidney Disea se: Estimated GFR < 60 mL/min/1.83d1Sqhagb Kidney Disease: Estimated GFR < 15 mL/min/1.73m2 Glucose 125(H) 60 - 115 mg/dL [facility] Calcium 9.1 8.4 - 10.2 mg/dL [facility] Bilirubin, Total 0.3 0.0 - 1.0 mg/dL [facility] Aspartate Amino Transferase 15 5 - 37 U/L [facility] Alanine Aminotransferase <6 0 - 40 U/L [facility] Total Protein 7.7 6.5 - 8.0 g/dL [facility] Albumin Level 4.3 3.5 - 5.0 g/dL [facility] Alkaline Phosphatase 73 39 - 117 U/L [facility] 12/12/2024 4:11 PM EDT 12/12/2024 4:16 PM EDT us Generic External Data Provider LAB BLOOD ORDERAB LES Final Result Performing Organization Address City/State/[facility] Co de Phone Number [facility] [address] [place] [address] [phone] * XR Chest 2 Views (12/12/2024 2:45 PM EDT) Anatomical Region Laterality Modality Chest Radiographic Latesha ging 12/12/2024 2:45 PM EDT Narrative 12/12/2024 2:59 PM EDT [address] [address] XRay Report Signed Patient: Jeffry Castañeda MR#: [id number] 2 : 1960 Acct:[id number] Age/Sex: 63 / M ADM Date: 12/12/24 Loc: .ED Attending Dr: Ordering Physician: Shirley Oliveros Date of Service: 12/12/24 Procedure(s): XR chest 2V Accession Number(s): [id number] cc: Avni Elias MD; Shirley Oliveros Reason [...] by Dwight Galvan MD in OV> 12/12/24 145 DD/ 1445 TD/TT: 12/12/24 145 Golf Sales Associate: Procedure Note Donotuseinterpreter, Image - 12/12/2024 [place] [address] XRay Report Signed Patient: Kaleb Castañeda#: [id number] 2 : 1960cct:[id number] Age/Sex: 63 / MADM Date: 12/12/24 Loc: .ED Attending Dr: Ordering Physician: Shirley Oliveros Date of Service: 12/12/24 Procedure(s): XR chest 2V Accession Number(s): [id number] cc: Avni Elias MD; Shirley Oliveros Reason [...] 12/12/24 1456 DD/ 1445 TD/TT: 12/12/24 1450 Golf Sales Associate: us [facility] External Provider IMG XR PROCEDURES Final Result * (ABNORMAL) Hemoglobin A1c (09/28/2024 8:35 AM EDT) Hemoglobin A1c 6.1(H) <6.0 % [facility] Comment:Hemoglobin A1C Refer ence Range Adults: 4.8 - 6.0 % Non diabetic: < 6.0 % Goal: < 7.0 %Additional Action Suggested: > 8.0 %Note: Hemoglobin A1c results are invalid for patients with abnormal amounts of HbF. Blood transfusions may impact the HbA1c concentration in the patient sample. Estimated Average Glucose 128 mg/dL [facility] Comment:eAG = Estimated ave rage glucose which is %A1C expressed asaverage glucose, using the formula of the O9N-FirlhqaLrhsfne Glucose study (ADAG), Diabetes Care, Vol.31,#8,Oct. 2007 Blood Venous blood specimen / Unknown 09/28/2024 8:35 AM EDT 09/28/2024 11:13 AM EDT Avni Díaz MD LAB BLOOD ORDERABL ES Final Result [facility] [address] [place] [phone] * Lipid Panel, Standard (09/28/2024 8:35 AM EDT) Triglycerides 62 <150 mg/dL [facility] Comment:Desirable Triglyceri de: less than 150 mg/dLBorderline High Triglyceride 150-199 mg/dLHigh Triglyceride: 200-499 mg/dLVery High Triglyceride: greater than or equal to 5OO mg/dL Cholesterol 116 <200 mg/dL [facility] Comment:Desirable Cholestero l: less than 200 mg/dLBorderline High Cholesterol: 200-239 mg/dLHigh Cholesterol: greater than 239 mg/dL LDL Cholesterol Calculated 58 <100 mg/dL [facility] Comment:Desirable LDL: less than 100 mg/dLNear Optimal/Above Optimal LDL: 110- 129 mg/dLBorderline High LDL: 130-159 mg/dLHigh LDL: 160-189 mg/dLVery High LDL: greater than or equal to 190 mg/dL HDL Cholesterol 46 >40 mg/dL [facility] Comment:Desirable HDL: great er than 40 mg/dL Note: This HDL assay may give artificially low results in patients with liver disease. Blood Venous blood specimen / Unknown 09/28/2024 8:35 AM EDT 09/28/2024 11:13 AM EDT us Avni Díaz MD LAB BLOOD ORDERABL ES Final Result [facility] [address] [place] [phone] * Hepatitis Panel, General (11/28/2022 10:21 AM EDT) Hepatitis A IgM Nonreactive Nonreactive [facility] Comment:IgM antibodies to GAGE V not detected; does not exclude earlyacute or recovered HAV infection. ~Hepatitis B Surface Antibody REACTIVE Nonreactive [facility] Comment:REACTIVE: > 11.99 mI U/mL Hepatitis B Core Antibody Nonreactive Nonreactive [facility] Hepatitis C Antibody Nonreactive Nonreactive [facility] Comment:Antibodies to HCV no t detected; does not exclude early acuteHCV infection. Hepatitis B Surface Ag Negative Negative [facility] Blood 11/28/2022 10:2 1 AM EDT 11/28/2022 2:58 PM EDT us Avni Díaz MD LAB BLOOD ORDERABL ES Final Result [facility] [address] [place] [phone] * HIV 1/2 ANTIGEN/ANTIBODY,FOURTH GENERATION W/RFL (01/12/2020 9:36 AM EDT) HIV-1/2 ANTIGEN AND ANTIBODIES, 4TH GENERATION W/ REFLEX NON-REACT SANCHEZ NON-REACT SANCHEZ [facility] Comment: HIV-1 antigen and HIV-1/HIV-2 [...] purpose. For additional information please refer to http://education.[employer]/faq/HVL868 (This link is being provided for informational/ educational purposes only.) The performance of this assay has not been clinically validated in patients less than 2 years old. 01/12/2020 9:36 AM EDT Avni Díaz MD LAB BLOOD ORDERABL ES Final Result Performing Organization Address City/State/[facility] Co de Phone Number [facility] [address] from Last 3 Months or Most Recently Relevant to Health Maintenance Insurance [facility] ONE CARE < 65 [place] [id number] [employer]ENTAL - [facility] [facility] Care Teams E/M Engineer Relationship Specialty Start Date End Date Avni Elais MD [address] [place] [phone] PCP - General Internal Medicine 08/11/19
--- NOTE | 2025-03-10 10:18 | A.OFFVIS_ITS ---
Intake Visit Reasons: follow up Accompanied by: Father Allergies shellfish derived (SHELLFISH DERIVED) Allergy (Unknown, Verified 03/10/25 10:19) UNKNOWN Seafood Allergy (Severe, Uncoded 03/10/25 10:19) VOMITS, DIFF BREATHING Medication List - Last Reconciled 03/10/25 by Shellie Feng CNP albuterol sulfate 90 mcg/actuation (Ventolin HFA) inhalation amlodipine 5 mg PO QAM atorvastatin 20 mg PO DAILY azithromycin (Zithromax) 250 mg PO DAILY benzonatate 100 mg PO BID PRN carbidopa-levodopa 25-100 mg 1 tab PO QID 90 days carbidopa-levodopa 50-200 mg ER 1 tab PO BEDTIME 90 days diclofenac potassium 50 mg PO TID PRN diclofenac sodium 1% 2 grams topical TID pramipexole 0.125 mg PO TID 90 days zolpidem 10 mg PO BEDTIME HPI Comments Details: 64-year-old man with Parkinson disease. He was initially seen in 2020 when he reported that he was having problem with his right side for years. He was here with his two sisters. He was taking carbidopa-levodopa 25-100mg four times a day, carbidopa-levodopa 50-200mg ER at bedtime, and reduced dose of pramipexole 0.125mg three times a day. He did not like how he felt when dose was increased to 0.25mg three times and wanted to go back to lower dose at his last appointment in 01/2025. He thought he may be having side effects from pramipexole, and wanted to stop medication completely. He was complaining of feeling numb, which he described as stiffness in body, notably in feet and shoulders, with slow movements, and ongoing tremors. He had tremor to right hand and sometimes in legs. No falls. Sleep was okay. [facility], [facility] Medical History Parkinson's disease REM sleep behavior disorder RLS (restless legs syndrome) Dementia Anxiety disorder Review of Systems Const Denies chills, Denies daytime sleepiness, Reports difficulty sleeping, Denies fatigue, Denies fever(s), Denies frequent falls, Denies headache(s), Denies increased appetite, Denies poor appetite, Denies snoring, Reports weakness, Denies weight gain and Denies weight loss Eyes Denies loss of vision ENT Denies vertigo, Reports dizziness and Denies headache(s) Card Denies chest pain at rest, Denies chest pain with activity, Denies syncope, Denies leg edema and Denies palpitations Resp Denies snoring GI Reports constipation, Denies heartburn, Denies diarrhea and Denies nausea Denies urinary frequency, Denies urinary incontinence and Denies urinary urgency Musc Reports abnormal gait (balance difficulty), Denies numbness and Denies tingling Skin/Breast Denies dry skin and Denies rash Neuro Reports abnormal gait (balance difficulty), Denies vertigo, Reports dizziness, Denies syncope, Denies frequent falls, Denies headache(s), Denies lack of coordination, Denies loss of vision, Denies memory loss, Denies numbness, Denies restless legs, Denies seizure-like activity, Denies tingling, Denies paresthesias, Reports tremor(s) and Reports weakness Psych Denies anxiety, Denies depression, Denies auditory hallucinations, Denies memory loss, Denies visual hallucinations and Denies suicidal ideation Endo Denies fatigue and Denies palpitations Physical Exam Neuro Other: Mental Status: Alert and oriented to person, place, and time. Normal attention. Normal spontaneous speech, fluency, and comprehension. Cranial Nerves: CN II: Visual marcus full to confrontation, visual acuity intact. CN III, IV, : Pupils equal, round, reactive to light and accommodation. Extraocular movements are normal. CN V: Facial sensation is normal. CN VII: Facial movements symmetrical. CN VIII: Hearing intact to bedside conversation is normal. CN IX, X: Palate elevates symmetrically. CN XI: Shoulder shrug and head turn symmetrical. CN XII: Tongue midline without atrophy or fasciculations. Motor: Bulk and tone normal in all extremities. No significant muscle weakness in arms and legs. No drift. Reflexes: Deep tendon reflexes 2+ and symmetric. Plantar response down-going bilaterally. Coordination: [id number] is okay. Gait and Station: Slow and cautious with decreased arm swing and constant right hand tremor Extrapyramidal: Decreased facial expression blinking. Moderate generalized bradykinesia. Almost constant right hand resting tremor and intermittent resting tremor to legs. Speech: Normal; no dysarthria or tremor. Assessment & Plan Assessment & Plan (1) Parkinson's disease: Code(s): G20 - Parkinson's disease Category: Medical Qualifiers: Dyskinesia presence: unspecified whether dyskinesia Fluctuating manifestations: unspecified whether manifestations fluctuate Qualified Code(s): G20.A1 - Parkinson's disease without dyskinesia, without mention of fluctuations Plan: They were educated on this condition, its symptoms, and treatment, including use of pramipexole - however he preferred to stop this medication. Stop pramipexole. Increase carbidopa-levodopa 25-100mg alternate 1.5 tablet with 1 tablet four times a day (1.5 tablets at 7am, 1 tablet at 11am, 1.5 tablets at 3pm, and 1 tablet at 7pm). Continue carbidopa-levodopa 50-200mg ER 1 tablet at bedtime. Follow up in 2 months or sooner as needed. (2) REM sleep behavior disorder: Code(s): G47.52 - REM sleep behavior disorder Category: Medical Plan Meds tried: Carbidopa/levodopa, Carbidopa/levodopa ER, pramipaxole, amantadine, sertraline, benztropine Medications: Changed From carbidopa-levodopa 25-100 mg 1 tab PO QID 90 days 360 tabs 0RF To carbidopa-levodopa 25-100 mg 1 tab orally alternate 1.5 tablet and 1 tablet for 4 doses/day; 90 days 450 tabs 0RF From carbidopa-levodopa 25-100 mg 1 tab orally alternate 1.5 tablet and 1 tablet for 4 doses/day; 90 days 450 tabs 0RF To carbidopa-levodopa 25-100 mg 1 tab orally alternate 1.5 tablet and 1 tablet for 4 doses/day; (1.5 tablets at 7am, 1 tablet at 11am, 1.5 tablets at 3pm, and 1 tablet at 7pm). 450 tabs 0RF 90 days Discontinued pramipexole Discontinued Reason: Doctor's Order 0.125 mg PO TID 90 days 270 tabs 1RF Coding Level of Care Code Est Pt Level 4 (00317) Diagnoses Parkinson's disease, unspecified whether dyskinesia present, unspecified whether manifestations fluctuate G20.A1 Dyskinesia presence: unspecified whether dyskinesia Fluctuating manifestations: unspecified whether manifestations fluctuate REM sleep behavior disorder G47.52
== END 2025-03-10 10:49 | disposition home or self-care (01) ==
LOC: HO.HSM 10:13
PROVIDERS: PCP Internal Medicine; Visit Provider Registered Nurse
DX: G20.A1 Parkinson's disease without dyskinesia, without mention of fluctuations (principal); G47.52 REM sleep behavior disorder
CPT/HCPCS: 99214

== ENCOUNTER → 2025-03-10 10:12 | Outpatient (BNVA) | payer OTHER, MEDICAID, SELFPAY | PROVIDERS: PCP Internal Medicine; Visit Provider Registered Nurse | DX: G20.A1 Parkinson's disease without dyskinesia, without mention of fluctuations (principal); G47.52 REM sleep behavior disorder; Z79.899 Other long term (current) drug therapy | CPT/HCPCS: 99212 ==